=== PATIENT | female | born 1970 | race Hispanic/Latino ===

== ENCOUNTER 2020-05-12 09:58 | Emergency (ER) | payer SELFPAY ==
[2020-05-12] VITALS (17 sets, daily range): BP systolic 84–147; BP diastolic 39–106; PULSE 69–101; RESP 16–29; TEMP 36.4; O2SAT 98–100
--- NOTE | ~2020-05-12 | XR_ITS ---
EXAMINATION: XR chest 2V DATE: 05/12/2020 10:39 INDICATION: Chest pain and hypertension TECHNIQUE: PA and lateral views of the chest were obtained. COMPARISON: None FINDINGS: The lungs are clear with no focal airspace opacities, pulmonary edema, pleural effusion or pneumothor ax. The cardiomediastinal silhouette is normal. Cholecystectomy clips in right upper quadrant. Mild t horacic dextrocurvature with mild spondylosis. Mild anterior wedging of a midthoracic vertebral body, likely T8. Tiny metallic density projecting over the right greater tuberosity which could be related to prior rotator cuff repair. Correlate with surgical history. IMPRESSION: 1. No acute cardiopulmonary disease. Reviewed, dictated and finalized at location B. [facility] DIRECTOR
--- NOTE | 2020-05-12 10:17 | ECG_ITS ---
Measurements Intervals [place] Rate: 78 P: 38 SD: 140 QRS: 40 QRSD: 93 T: 35 QT: 390 QTc: 446 Interpretive Statements SINUS RHYTHM BASELINE ARTIFACT- I, III, AVL NORMAL ECG Electronically Signed On 05-12-2020 10:26:57 DIRECTOR OF REGULATORY AFFAIRS by Jorge Collins D.O.
[2020-05-12 10:29] LABS: Basophils Absolute Auto 0.1 K/mm3 (0.0-0.1); Basophils Percent Auto 0.3 % (0.2-1.2); Eosinophils Absolute Auto 0.4 K/mm3 (0-0.3); Eosinophils Percent Auto 2.6 % (0-4.4); Immature Granulocyte Absolute 0.09 K/mm3 (0.00-0.031); Immature Granulocyte Percent A 0.6 % (0-0.5); Immature Platelet Fraction Pct 5.9 % (0.9-11.2); Lymphocytes Absolute Auto 4.39 K/mm3 (0.9-3.2); Lymphocytes Percent Auto 28.9 % (18.3-44.2); Mean Corpuscular HGB Conc 29.4 g/dl (32-36); Mean Corpuscular Hemoglobin 18.7 pg (26-34); Mean Corpuscular Volume 63.6 fl (80-100); Mean Platelet Volume 10.8 fl (7.4-10.4); Monocytes Absolute Auto 1.2 K/mm3 (0.1-0.6); Monocytes Percent Auto 8.2 % (2.6-8.5); Neutrophils Percent Auto 59.4 % (45.5-73.1); Platelet Count Result 498 k/mm3 (150-375); Red Blood Count 5.35 M/mm3 (4.2-5.4); White Blood Count 15.2 K/mm3 (4.5-10.0)
[2020-05-12 10:33] LABS: Add Urine Microscopic? YES; Appearance Urine Cloudy (Clear); Bacteria Urine Trace /hpf; Bilirubin Urine Negative (Negative); Blood Urine 2+ (Negative); Color Urine Yellow (Yellow); Glucose Urine UA 1+ mg/dL (Negative); Ketones Urine Negative (Negative); Leukocyte Esterase Ur Negative LEU/UL (Negative); Mucus Urine Moderate /lpf; Nitrate Urine Negative (Negative); Protein Urine 2+ mg/dL (Negative); RBC Urine 0-2 /hpf (0-2); Specific Grav Ur 1.027 (1.001-1.035); Squamous Epithelial Cell Urine Many /hpf (Few); Urobilinogen Urine Negative mg/dL (<2.0); WBC Urine 0-3 /hpf
[2020-05-12 10:39] LABS: Hypochromasia 3+ (NORMAL); INR 0.9; Platelet Estimate Increased (Adequate); Prothrombin Time 13.1 Seconds (11.1-14.7)
[2020-05-12 10:40] LABS: Partial Thromboplastin Time 29.9 SECONDS (22.3-36.8)
[2020-05-12 10:43] LABS: Anion Gap 7 mmol/L (8-16); Blood Urea Nitrogen 10 mg/dL (7-17); Carbon Dioxide 25 mmol/L (22-30); Chloride 100 mmol/L (98-107); Estimated Glomerular Filt Rate > 60; Glucose 234 mg/dL (65-105); Potassium 4.2 mmol/L (3.4-5.0); Sodium 132 mmol/L (137-145)
[2020-05-12 10:53] LABS: Troponin I < 0.012 ng/mL (0.000-0.034)
--- NOTE | 2020-05-12 11:08 | ED.RECABL ---
HPI - Recheck/Abnormal Lab/Rx General Chief Complaint: Recheck/Abnormal Lab/Rx Stated Complaint: sent by pcp for elevated bp and glucose Time Seen by Provider: 05/12/20 10:53 Source: patient Mode of arrival: ambulatory Limitations: no limitations History of Present Illness HPI narrative: This is a 49 year old female that presents to the ER for intermittent chest pain x 2 weeks. Reports the pain is achy in nature. It lasts for only a few seconds. Sometimes it is worse with certain movements. Also reports she has been getting headaches. Headache today is in the frontal region and associated with nausea. Reports she was seen by her primary doctor yesterday and told her blood pressure was elevated. She has not been on her blood pressure medication for the last year because she ran out. Her primary doctor restarted on her blood pressure medication, but she has not taken this yet. She also reports her blood sugars have been running in the 300s. Denies fever, shortness of breath, vision changes, vomiting, lower extremity edema, numbness, or weakness. Related Data Allergies Allergy/AdvReac Type Severity Reaction Status Date / Time morphine AdvReac Nausea and Verified 05/12/20 11:11 Vomiting Review of Systems Review of Systems: Narrative: CONSTITUTIONAL: Denies fever EYES: Denies visual changes CARDIOVASCULAR: Reports chest pain. Denies edema. RESPIRATORY: Denies cough or dyspnea. GASTROINTESTINAL: Reports nausea. Denies vomiting GENITOURINARY: Denies dysuria NEUROLOGIC: Reports headache. Denies numbness, or weakness. All systems reviewed & are unremarkable except as noted in HPI and below [facility] Past Medical History Medical History (Updated 05/12/20 @ 12:46 by Lin Delgadillo PA-C) History of diabetes mellitus History of hypertension Social History Social History Gender identity (if verbalized by the patient): Female Exam Narrative: Exam Narrative: GENERAL: Well-appearing, obese, and in no acute distress. HEAD: Normocephalic, atraumatic. EYES: PERRLA and EOMI. ENT: Nares clear, no rhinorrhea or epistaxis. Mucous membranes moist. Oropharynx without tonsillar hypertrophy exudate or other lesions. Bilateral TMs pearly bethea non-bulging NECK: Supple. No adenopathy or masses. CHEST: Clear to auscultation. No respiratory distress. No wheezes rales or rhonchi HEART: Regular rate and rhythm. No murmur heard. Normal peripheral pulses. ABDOMEN: Soft, nontender, nondistended, normal active bowel sounds. EXTREMITIES: Normal range of motion. No edema. Strength equal in bilateral upper and lower extremities (5/5) SKIN: Warm, dry, no rash. NEURO: No focal deficits. Alert and oriented x3. Cranial nerves II through XII grossly intact PSYCH: Normal mood and affect Course Vital Signs Vital signs: Vital Signs Temperature 97.5 F L 05/12/20 10:12 Pulse Rate 85 05/12/20 10:12 Respiratory Rate 16 05/12/20 10:12 Blood Pressure 147/106 H 05/12/20 10:12 Pulse Oximetry 100 05/12/20 10:12 Temperature 97.5 F L 05/12/20 10:12 Pulse Rate 85 05/12/20 10:12 Respiratory Rate 16 05/12/20 10:12 Blood Pressure 147/106 H 05/12/20 10:12 Pulse Oximetry 100 05/12/20 10:12 MDM - Recheck/Abnormal Lab/Rx MDM Narrative Medical decision making narrative: Patient presents the emergency department for elevated blood pressure and blood sugar. She is afebrile and nontoxic-appearing. She is neurologically intact. Was reporting intermittent headaches over the last couple weeks as well as intermittent chest pain. Reports she has been off of her blood pressure medication for some time and was noted to have high blood pressure at her primary visit yesterday. Was restarted on her antihypertensive but has not taken this yet. Blood pressure mildly elevated on arrival, this down trended without intervention. She was given migraine cocktail with relief of headache. Denies any chest pain currently while in the ED. CBC does s
[2020-05-12 11:28] LABS: Hemoglobin A1C 10.8 % (<5.7)
[2020-05-12] MEDS: KETOROLAC 30 MG/ML VIAL (*BKC) IV PUSH (11:30)
[2020-05-12] MEDS: SODIUM CHLORIDE 0.9% IV 1,000 ML 999 ML IV CONT (11:30)
[2020-05-12] MEDS: METOCLOPRAMIDE HCL INJ 10 MG/2 ML VIAL IV PUSH (11:30)
[2020-05-12] MEDS: diphenhydrAMINE HCl INJ 50 MG/ML VIAL 25 MG IV PUSH (11:30)
== END 2020-05-12 13:30 | disposition home or self-care (01) ==
PROVIDERS: Physician Assistant; Emergency Provider Emergency Medicine; PCP Physician Assistant
DX: E11.65 Type 2 diabetes mellitus with hyperglycemia (principal); I10 Essential (primary) hypertension; E07.9 Disorder of thyroid, unspecified; R51.9 Headache, unspecified
CPT/HCPCS: 36415; 71046; 80048; 81001; 81025; 83036; 84484; 85025; 85055; 85610; 85730; 93005; 96365; 96375; 99284; J0131; J1200; J1885; J2765; J7030

== ENCOUNTER 2024-10-04 17:58 | Inpatient (IN) | payer SELFPAY ==
[2024-10-04] VITALS (11 sets, daily range): BP systolic 133–183; BP diastolic 48–86; PULSE 115–124; RESP 20–44; TEMP 36.7–39.2; O2SAT 91–99; BMI 39.3
--- NOTE | ~2024-10-04 | XR_ITS ---
Portable chest x-ray Comparison: 10/05/2024 Clinical History: Shortness of breath Findings: There is central congestive change and probable minimal bibasilar pulmonary edema. Right-s ided PICC line in place. Cardiomediastinal silhouette is stable. Bones and soft tissues are unremark able. Impression: Minimal congestive change and probable minimal bibasilar pulmonary edema. Right-sided PICC line in place. Reviewed, dictated and finalized at location M. Impression: Minimal congestive change and probable minimal bibasilar pulmonary edema. Right-sided PICC line in place.
--- NOTE | ~2024-10-04 | CT_ITS ---
CT abdomen pelvis w con Ordering provider: Jenny Novoa MD History: 54 years Female with . R flank/lat pain radiating across R low back . Comparison: None. Technique: CT abdomen and pelvis with IV and without oral contrast. Automated exposure control and it erative reconstruction technique were employed. The dose-length product was 1020.94 mGy-cm. Findings: VISUALIZED LOWER CHEST: Dependent atelectatic changes. UPPER ABDOMINAL ORGANS: Liver: Hepatomegaly. Gallbladder: Status post cholecystectomy. Spleen: Normal. Stomach/duodenum: Normal. Pancreas: Normal. Adrenals: 1 cm left adrenal adenoma is seen. No follow-up advised unless clinically warranted. This Kidneys: Hypodensity with central necrotic areas is seen in the right kidney upper pole which is sugg estive of a mass. Focal nephritis is less likely. This area measures 2.8 x 2.9 cm. Further evaluation and follow-up is advised. PELVIC ORGANS: The bladder shows slightly thickened wall. Evaluation for cystitis advised. Bulge is seen in the anterior wall of the uterus which may indicate large fibroid. Another smaller e xophytic soft tissue density is also seen anteriorly suggestive of small fibroids. Further evaluation advised. BOWEL AND MESENTERY: Colon: No evidence of diverticulitis.. No evidence of appendicitis. Small Bowel: Normal. No obstruction. Peritoneum/mesentery: No free air or free fluid. No mesenteric lymphadenopathy. RETROPERITONEUM: Normal aorta. No retroperitoneal lymphadenopathy. MUSCULOSKELETAL: Superficial soft tissues: The superficial soft tissues are normal. Bones: Normal spine. IMPRESSION: 1. No evidence of appendicitis, diverticulitis or intestinal obstruction. No kidney stones. 2. Hypodensity in the right kidney upper pole which may indicate a mass and less likely focal nephri tis. Further evaluation and follow-up advised. 3. Tiny left adrenal nodule. No follow-up is clinically warranted. 4. Fibroid uterus. Ultrasound evaluation advised. 5. Hepatomegaly. Reviewed, dictated and finalized at location A. IMPRESSION: 1. No evidence of appendicitis, diverticulitis or intestinal obstruction. No k idney stones. 2. Hypodensity in the right kidney upper pole which may indicate a mass and le ss likely focal nephritis. Further evaluation and follow-up advised. 3. Tiny left adrenal nodule. No follow-up is clinically warranted. 4. Fibroid uterus. Ultrasound evaluation advised. 5. Hepatomegaly.
--- NOTE | ~2024-10-04 | US_ITS ---
EXAMINATION: US renal BI DATE: 10/06/2024 10:35 INDICATION: Focal pyelonephritis and bacteremia TECHNIQUE: Multiple ultrasound grayscale images of the kidneys were obtained. COMPARISON: CT dated 10/04/2024 FINDINGS: The right kidney measures 12.9 x 6.4 x 7.0 cm. The left kidney measures 12.8 x 6.6 x 6.6 cm. There is a small ill-defined region of increased echogenicity at the upper pole of the right kidney which cor responds to a region of hypoenhancement on prior CT suspicious for pyelonephritis. The kidneys demons trate otherwise normal echogenicity. Mild left hydronephrosis. No hydronephrosis in the right kidney. No stones identified. The bladder is normal with bilateral ureteral jets visualized on color Doppler . 1.1 cm nodule, likely a small splenule along the caudal margin of the spleen. IMPRESSION: 1. Small ill-defined hyperechoic region at the upper pole the right kidney corresponding to the ninoska on of decreased enhancement on prior CT suspicious for pyelonephritis. Consider follow-up ultrasound or pre and postcontrast MRI or CT in a few months to exclude less likely neoplasm and document resolu tion. 2. Mild left hydronephrosis. Reviewed, dictated and finalized at location A. IMPRESSION: 1. Small ill-defined hyperechoic region at the upper pole the right kidney cor responding to the region of decreased enhancement on prior CT suspicious for py elonephritis. Consider follow-up ultrasound or pre and postcontrast MRI or CT i n a few months to exclude less likely neoplasm and document resolution. 2. Mild left hydronephrosis.
--- NOTE | ~2024-10-04 | CT_ITS ---
CT soft tissue neck chest wo Ordering provider: Tacho Andrade MD History: 54 years Female with . Sore throat, Bacteremia . Comparison: None. Technique: CT soft tissues neck chest was performed without contrast. . Automated exposure control a nd iterative reconstruction technique were employed. The dose-length product was 1068.14 mGy-cm. Findings: LOWER HEAD: The visualized brain parenchyma, optic globes/orbits and mastoids are normal. The visua lized paranasal sinuses are well aerated. SALIVARY GLANDS: Normal. slightly enlarged parotid glands. Clinical evaluation advised. THYROID: Calcific foci are seen in the left thyroid. SUPRAHYOID DEEP SPACES: Left parapharyngeal lymph node measuring 8 mm. CAROTID ARTERIES: Normal. JUGULAR VEINS: Normal. TONSILS: Normal. ORAL CAVITY: Partially obscured by dental amalgam but normal as visualized. PHARYNX, LARYNX AND TRACHEA: Patent and normal. No prevertebral soft tissue swelling. SUPERFICIAL SOFT TISSUES: Normal. No lymphadenopathy or neck mass. CHEST: Right central line with the tip in the superior vena cava. Opacification in the right lower lo be area suggestive of atelectasis versus pneumonia with minimal effusion. Opacification in the left l ower lobe is also noted with minimal effusion. Cardiomegaly. Visualized upper abdomen: Hyperdense areas seen in the right kidney which may indicate a mass.these areas measure 1.9 x 2.4 cm and 1.9 x 2.4 cm. Further evaluation advised. Left adrenal adenoma measuring 1.3 cm. No follow-up advised unless clinically warranted. SKELETAL: Age appropriate degenerative changes. IMPRESSION: 1. Enlarged particularly glands. Clinical evaluation advised. 2. Calcific foci in the left thyroid. Further evaluation advised. 3. Bilateral basal atelectasis versus pneumonia with effusion. 4. Hyperdense lesions in the right kidney which may be masses. Further evaluation advised. Reviewed, dictated and finalized at location A. IMPRESSION: 1. Enlarged particularly glands. Clinical evaluation advised. 2. Calcific foci in the left thyroid. Further evaluation advised. 3. Bilateral basal atelectasis versus pneumonia with effusion. 4. Hyperdense lesions in the right kidney which may be masses. Further evaluat ion advised.
--- NOTE | ~2024-10-04 | XR_ITS ---
XR chest 1V portable Ordering provider: Lyle Ramirez MD History: 54 years Female with . cough . Comparison: May 12, 2020 FINDINGS: MEDIASTINUM: The cardiac silhouette is not enlarged. Congestive delores. LUNGS: No effusions or pneumothorax. Opacification in both lung bases more on the left side. OTHER: No free air under the diaphragm. IMPRESSION: Bibasilar atelectasis versus pneumonia. Follow-up to resolution advised. Reviewed, dictated and finalized at location A.
--- NOTE | ~2024-10-04 | XR_ITS ---
Portable chest x-ray Comparison: 10/04/2024 Clinical History: PICC line placement Findings: Right-sided PICC line in satisfactory position. Lungs are clear, without focal consolidati on or pleural effusion. No pneumothorax. Cardiomediastinal silhouette is stable. Bones and soft tiss ues are unremarkable. Impression: Right-sided PICC line in satisfactory position. Clear lungs. Reviewed, dictated and finalized at location . Impression: Right-sided PICC line in satisfactory position. Clear lungs.
--- NOTE | 2024-10-04 17:50 | ED.GENADULT ---
HPI - General Adult General Chief complaint: Back Pain/Injury Stated complaint: right flank pain, BS 412 Source: patient, family and RN notes reviewed Mode of arrival: EMS Limitations: no limitations History of Present Illness HPI narrative: Patient presents with was initially described as right flank pain although she points to her right lateral abdomen. She does note that it radiates medially across her back towards/approaching the midline. This started at 3:00 a.m.. Blood sugar per EMS was 412 mg/dL. She is an insulin-dependent diabetic who is on both long-acting and short-acting. Her last dose of long-acting was yesterday morning she did not take today's morning dose. Her last use of short-acting lispro which is typically 14 units was at breakfast this morning. She has been in DKA before and notes that she feels similar. She has been nauseated and was administered 4 mg Zofran by EMS EN route. She continues to feel nauseated. She has been vomiting but denies any bloody emesis. She denies any abdominal pain. Her last bowel movement was 1 hour ago and she denies any diarrhea constipation or blood in stool. She denies any trauma. No vaginal bleeding or discharge. Last oral intake was last night. She has been having chills. She does not know if she has a history of kidney stones. She has a history of urinary tract infection with the last 1 occurring 2 months ago. She lists an allergy to morphine but states that she has successfully received other opiate therapy such as hydrocodone without issue. No vaginal bleeding or discharge. Last oral intake was last night. No trauma. Related Data Allergies Allergy/AdvReac Type Severity Reaction Status Date / Time morphine AdvReac Nausea and Verified 10/04/24 17:19 Vomiting PMFSH Past Medical History Medical History (Updated 10/04/24 @ 19:23 by Jenny Novoa MD) History of UTI Insulin dependent diabetes mellitus DKA (diabetic ketoacidosis) History of hypertension Social History Social History (System 01/04/22 @ 13:30 by Hunter Elmore) Gender identity (if verbalized by the patient): Female Exam Narrative: GENERAL: Well-appearing, well-nourished, in mild acute distress. HEAD: Normocephalic, atraumatic. EYES: Non injected, non icteric ENT: Nares clear, no rhinorrhea or epistaxis. Gross auditory acuity intact. NECK: Supple. No meningismus. CHEST: Tachycardic but Speaking in full sentences. HEART: Tachycardic rate and rhythm. ABDOMEN: Soft, nondistended. No rigidity or guarding. Not peritoneal. BACK/: No CVA tenderness bilaterally. EXTREMITIES: Normal range of motion. SKIN: Warm, dry, no rash. In particular, no lesions or ecchymosis overlying back/right lateral abdomen. NEURO: No focal deficits. Alert and oriented. Answering questions. Following commands. Normal speech without aphasia or dysarthria. PSYCH: Normal mood and affect. Course Vital Signs Vital signs: Vital Signs Temperature 36.7 C 10/04/24 17:16 Pulse Rate 119 H 10/04/24 17:16 Respiratory Rate 20 10/04/24 17:16 Blood Pressure 143/48 H 10/04/24 17:16 Pulse Oximetry 99 10/04/24 17:16 Oxygen Delivery Room Air 10/04/24 17:16 Temperature 39.1 C H 10/04/24 18:07 Pulse Rate 119 H 10/04/24 20:29 Respiratory Rate 38 H 10/04/24 20:29 Blood Pressure 183/78 H 10/04/24 20:29 Pulse Oximetry 95 10/04/24 20:29 Oxygen Delivery Room Air 10/04/24 17:16 Medical Decision Making [facility] Narrative Medical decision making narrative: Patient presents with right flank/back/lateral abdomen pain as well as elevated blood sugar and nausea/vomiting. She has a history of insulin-dependent diabetes mellitus with previous episode of DKA. In the emergency department she is afebrile with vital signs notable for tachycardia. Mild elevated systolic blood pressure and decreased diastolic but mean arterial pressure 79mmHg. Due to the initially low diastolic blood pressure, tachycardia, and tachypnea, as well as her feeling warm on exam (initially normal temp but requested repeat). This is elevated at 102.3. Sepsis protocol is initiated with 30 cc/kg IV fluids, blood culture, lactic acid, and broad-spectrum antibiotics. Very mild elevated lactic acid. Point of care glucose 313 mg/dl. She has a marked leukocytosis. She has a microcytic anemia. Hemoglobin is 7.8; last known previous in EMR was 10 but that was back in 2020. Repeat H/H 4 hours from initial is ordered. She also has a thrombocytosis, initilaly considered acute phase reactant but chronic per review of EMR. Beta hydroxybutyrate is elevated. She has hyperglycemia with an anion gap and mild acidosis as well as 3+ ketones in her urine. Thus, DKA is diagnosed and orders for protocol. Pseudo hyponatremia as it corrects to 140/142 in the setting of hyperglycemia. Potassium normal. CRP elevated. Patient reassessed at 7:30 p.m. she notes that she is feeling better. She is updated on her status of DKA requiring admission to the ICU but that official admission orders would be pending CT scan to rule out any surgical process. She verifies understanding and is in agreement. Patient signed out to oncoming ED physician pending this as well as a page out to the stock fitter/Dr Andrade. Differential Diagnosis Differential Diagnosis: DKA, hyperglycemia, HHS; kidney stone including infected kidney stone, pyelonephritis, UTI, musculoskeletal back pain; intra-abdominal abscess; sepsis Vital Signs Vital Signs: Vital Signs Temperature 36.7 C 10/04/24 17:16 Pulse Rate 119 H 10/04/24 17:16 Respiratory Rate 20 10/04/24 17:16 Blood Pressure 143/48 H 10/04/24 17:16 Pulse Oximetry 99 10/04/24 17:16 Oxygen Delivery Room Air 10/04/24 17:16 Temperature 39.1 C H 10/04/24 18:07 Pulse Rate 119 H 10/04/24 20:29 Respiratory Rate 38 H 10/04/24 20:29 Blood Pressure 183/78 H 10/04/24 20:29 Pulse Oximetry 95 10/04/24 20:29 Oxygen Delivery Room Air 10/04/24 17:16 Lab Data Lab results reviewed: Yes I reviewed the patient's lab results. 10/04/24 18:01 10/04/24 18:01 Labs: Lab Results 10/04/24 10/04/24 10/04/24 Range/Units 17:19 18:01 18:01 WBC 22.5 H (4.5-10.0) K/mm3 RBC 4.95 (4.2-5.4) M/mm3 Hgb 7.8 L (12.0-15.0) g/dL Hct 29.7 L (37.0-47.0) % MCV 60.0 L (80-100) fl MCH 15.8 L (26-34) pg MCHC 26.3 L (32-36) g/dl RDW 21.7 H (11.5-14.5) % Plt Count 454 H (150-375) k/mm3 MPV TNP Immature Gran % (Auto) Not Reportable Neut % (Auto) Not Reportable Lymph % (Auto) Not Reportable Dixon % (Auto) Not Reportable Eos % (Auto) Not Reportable Baso % (Auto) Not Reportable Lymph # (Auto) Not Reportable Dixon # (Auto) Not Reportable Eos # (Auto) Not Reportable Baso # (Auto) Not Reportable Abs Immat Gran (auto) Not Reportable Absolute Neuts (auto) Not Reportable Absolute Nucleated RBC Not Reportable Total Counted 100 Neutrophils % (Manual) 86 H (46-73) % Band Neutrophils % 4 (0-6) % Lymphocytes % (Manual) 6.0 L (18-44) % Monocytes % (Manual) 4 (3-9) % Nucleated RBC % Not Reportable Abs Neuts (Manual) 20.25 H (1.3-6.7) K/mm3 Abs Lymphs (Manual) 1.35 (1.1-4.5) K/mm3 Abs Monocytes (Manual) 0.90 (0.1-0.90) K/mm3 Platelet Estimate Increased (Adequate) % Immature Plt Fraction 5.5 (0.9-11.2) % Polychromasia 1+ Hypochromasia 1+ Anisocytosis 3+ Microcytosis 1+ (NORMAL) Schistocytes None seen Sodium 136 L (137-145) mmol/L Potassium 3.5 (3.4-5.0) mmol/L Chloride 104 (98-107) mmol/L Carbon Dioxide 16 L (22-30) mmol/L Anion Gap 16 H (4-12) mmol/L BUN 5 L D (7-17) mg/dL Creatinine 0.37 L (0.7-1.0) mg/dL Estim Creat Clear Calc Not Reportable Estimated GFR > 60 (59 - ) Glucose 351 H (65-110) mg/dL POC Capillary Glucose 354 H (65-105) mg/dl Hemoglobin A1c (<5.7) % Lactic Acid 2.1 H (0.7-2.0) mmol/L Calcium 9.3 (8.4-10.2) mg/dL Phosphorus 2.7 (2.5-4.5) mg/dL Magnesium 1.6 (1.6-2.3) mg/dL Total Bilirubin 0.8 (0.2-1.3) mg/dL AST 30 (14-36) U/L ALT 28 (6-35) U/L Alkaline Phosphatase 101 (38-126) U/L C-Reactive Protein 4.5 H Cancelled (<1.0) mg/dL Total Protein 8.2 (6.3-8.2) g/dL Albumin 4.3 (3.5-5.1) g/dL Lipase 113 (23-300) U/L Beta-Hydroxybutyrate/Acetoacetate (0.02-0.27) mmol/L Urine Color (Yellow) Urine Appearance (Clear) Urine pH (5.0-9.0) Ur Specific [place] (1.001-1.035) Urine Protein (Negative) mg/dL Urine Glucose (UA) (Negative) mg/dL Urine Ketones (Negative) mg/dL Ur Blood (Man) (Negative) Urine Nitrate (Negative) Urine Bilirubin (Negative) Urine Urobilinogen (<2.0) mg/dL Leukocyte Esterase Rfl (Negative) LEATHA/UL Urine RBC (0-2) /hpf Urine WBC (0-3) /hpf Ur Squamous Epith Cells (Few) /hpf Urine Bacteria /hpf Urine Casts POC Urine HCG, Qual (Negative) Blood Type Antibody Screen 10/04/24 10/04/24 10/04/24 Range/Units 18:01 18:07 18:09 WBC (4.5-10.0) K/mm3 RBC (4.2-5.4) M/mm3 Hgb (12.0-15.0) g/dL Hct (37.0-47.0) % MCV (80-100) fl MCH (26-34) pg MCHC (32-36) g/dl RDW (11.5-14.5) % Plt Count (150-375) k/mm3 MPV Immature Gran % (Auto) Neut % (Auto) Lymph % (Auto) Dixon % (Auto) Eos % (Auto) Baso % (Auto) Lymph # (Auto) Dixon # (Auto) Eos # (Auto) Baso # (Auto) Abs Immat Gran (auto) Absolute Neuts (auto) Absolute Nucleated RBC Total Counted Neutrophils % (Manual) (46-73) % Band Neutrophils % (0-6) % Lymphocytes % (Manual) (18-44) % Monocytes % (Manual) (3-9) % Nucleated RBC % Abs Neuts (Manual) (1.3-6.7) K/mm3 Abs Lymphs (Manual) (1.1-4.5) K/mm3 Abs Monocytes (Manual) (0.1-0.90) K/mm3 Platelet Estimate (Adequate) % Immature Plt Fraction (0.9-11.2) % Polychromasia Hypochromasia Anisocytosis Microcytosis (NORMAL) Schistocytes Sodium (137-145) mmol/L Potassium (3.4-5.0) mmol/L Chloride (98-107) mmol/L Carbon Dioxide (22-30) mmol/L Anion Gap (4-12) mmol/L BUN (7-17) mg/dL Creatinine (0.7-1.0) mg/dL Estim Creat Clear Calc Estimated GFR (59 - ) Glucose (65-110) mg/dL POC Capillary Glucose (65-105) mg/dl Hemoglobin A1c (<5.7) % Lactic Acid (0.7-2.0) mmol/L Calcium (8.4-10.2) mg/dL Phosphorus (2.5-4.5) mg/dL Magnesium (1.6-2.3) mg/dL Total Bilirubin (0.2-1.3) mg/dL AST (14-36) U/L ALT (6-35) U/L Alkaline Phosphatase (38-126) U/L C-Reactive Protein (<1.0) mg/dL Total Protein (6.3-8.2) g/dL Albumin (3.5-5.1) g/dL Lipase Cancelled (23-300) U/L Beta-Hydroxybutyrate/Acetoacetate 1.32 H (0.02-0.27) mmol/L Urine Color Yellow (Yellow) Urine Appearance Cloudy H (Clear) Urine pH 5.5 (5.0-9.0) Ur Specific [place] 1.037 H (1.001-1.035) Urine Protein 1+ H (Negative) mg/dL Urine Glucose (UA) 3+ H (Negative) mg/dL Urine Ketones 3+ H (Negative) mg/dL Ur Blood (Man) Negative (Negative) Urine Nitrate Positive H (Negative) Urine Bilirubin Negative (Negative) Urine Urobilinogen 0.2 (<2.0) mg/dL Leukocyte Esterase Rfl Negative (Negative) LEATHA/UL Urine RBC 0-2 (0-2) /hpf Urine WBC 6-10 H (0-3) /hpf Ur Squamous Epith Cells None seen (Few) /hpf Urine Bacteria 1+ H /hpf Urine Casts 0-2 POC Urine HCG, Qual Negative (Negative) Blood Type Antibody Screen 10/04/24 10/04/24 10/04/24 Range/Units 18:24 19:19 20:31 WBC (4.5-10.0) K/mm3 RBC (4.2-5.4) M/mm3 Hgb (12.0-15.0) g/dL Hct (37.0-47.0) % MCV (80-100) fl MCH (26-34) pg MCHC (32-36) g/dl RDW (11.5-14.5) % Plt Count (150-375) k/mm3 MPV Immature Gran % (Auto) Neut % (Auto) Lymph % (Auto) Dixon % (Auto) Eos % (Auto) Baso % (Auto) Lymph # (Auto) Dixon # (Auto) Eos # (Auto) Baso # (Auto) Abs Immat Gran (auto) Absolute Neuts (auto) Absolute Nucleated RBC Total Counted Neutrophils % (Manual) (46-73) % Band Neutrophils % (0-6) % Lymphocytes % (Manual) (18-44) % Monocytes % (Manual) (3-9) % Nucleated RBC % Abs Neuts (Manual) (1.3-6.7) K/mm3 Abs Lymphs (Manual) (1.1-4.5) K/mm3 Abs Monocytes (Manual) (0.1-0.90) K/mm3 Platelet Estimate (Adequate) % Immature Plt Fraction (0.9-11.2) % Polychromasia Hypochromasia Anisocytosis Microcytosis (NORMAL) Schistocytes Sodium (137-145) mmol/L Potassium (3.4-5.0) mmol/L Chloride (98-107) mmol/L Carbon Dioxide (22-30) mmol/L Anion Gap (4-12) mmol/L BUN (7-17) mg/dL Creatinine (0.7-1.0) mg/dL Estim Creat Clear Calc Estimated GFR (59 - ) Glucose (65-110) mg/dL POC Capillary Glucose 313 H 297 H (65-105) mg/dl Hemoglobin A1c 11.7 H (<5.7) % Lactic Acid (0.7-2.0) mmol/L Calcium (8.4-10.2) mg/dL Phosphorus (2.5-4.5) mg/dL Magnesium (1.6-2.3) mg/dL Total Bilirubin (0.2-1.3) mg/dL AST (14-36) U/L ALT (6-35) U/L Alkaline Phosphatase (38-126) U/L C-Reactive Protein (<1.0) mg/dL Total Protein (6.3-8.2) g/dL Albumin (3.5-5.1) g/dL Lipase (23-300) U/L Beta-Hydroxybutyrate/Acetoacetate (0.02-0.27) mmol/L Urine Color (Yellow) Urine Appearance (Clear) Urine pH (5.0-9.0) Ur Specific Bartlett (1.001-1.035) Urine Protein (Negative) mg/dL Urine Glucose (UA) (Negative) mg/dL Urine Ketones (Negative) mg/dL Ur Blood (Man) (Negative) Urine Nitrate (Negative) Urine Bilirubin (Negative) Urine Urobilinogen (<2.0) mg/dL Leukocyte Esterase Rfl (Negative) LEATHA/UL Urine RBC (0-2) /hpf Urine WBC (0-3) /hpf Ur Squamous Epith Cells (Few) /hpf Urine Bacteria /hpf Urine Casts POC Urine HCG, Qual (Negative) Blood Type O Positive Antibody Screen Negative ABG Data ABG results: 10/04/24 19:17 VBG pH 7.438 H* VBG pCO2 25.6 L* VBG pO2 48.6 H VBG HCO3 16.9 L O2 Delivery Device Not Reportable O2 Liters/Min Not Reportable FiO2 21 ECG Data EKG #1: Attestation: I personally reviewed and interpreted this ECG as follows: ECG completion date: 10/04/24 ECG completion time: 19:03 Interpretation: Sinus tachycardia at a rate of 116 beats per minute. TX interval 136. QRS 86. QT/QTC 332/401. Good R-wave progression across the precordial leads. T-wave inversion in 3. Upright in contiguous inferior lead 2. No T-wave inversions in precordial leads. Discharge Plan Discharge Clinical Impression: Sepsis, Leukocytosis, Microcytic anemia, Thrombocytosis, DKA (diabetic ketoacidosis), Pseudohyponatremia, CRP elevated Patient Disposition: Still a Patient Condition: Serious Patient Language: Latvian Follow-up/Referrals: Pratibha,ELO Cherry [Primary Care Provider] - Time of Disposition: 20:57
--- NOTE | 2024-10-04 17:55 | PC.NURSE ---
Dr. Novoa at bedside assessing pt.
[2024-10-04 18:08] LABS: BEDSIDEPREGUCG Negative (Negative)
[2024-10-04 18:12] LABS: Hematocrit 29.7 % (37.0-47.0); Hemoglobin 7.8 g/dL (12.0-15.0); Immature Platelet Fraction Pct 5.5 % (0.9-11.2); Mean Corpuscular HGB Conc 26.3 g/dl (32-36); Mean Corpuscular Hemoglobin 15.8 pg (26-34); Platelet Count Result 454 k/mm3 (150-375); Red Blood Count 4.95 M/mm3 (4.2-5.4); Red Cell Distribution Width 21.7 % (11.5-14.5); White Blood Count 22.5 K/mm3 (4.5-10.0)
[2024-10-04] MEDS: HYDROmorphone HCL INJ (*CRX) 2 MG/ML VIAL 0.5 MG IV PUSH (18:19)
[2024-10-04] MEDS: ONDANSETRON INJ 4 MG/2 ML VIAL IV PUSH (18:19)
[2024-10-04] MEDS: SODIUM CHLORIDE 0.9% IV 1,000 ML 999 ML IV CONT ×2 (18:19→18:37)
[2024-10-04 18:23] LABS: Add Urine Microscopic? YES; Appearance Urine Cloudy (Clear); Bacteria Urine 1+ /hpf; Bilirubin Urine Negative (Negative); Blood Urine Negative (Negative); Color Urine Yellow (Yellow); Glucose Urine UA 3+ mg/dL (Negative); Ketones Urine 3+ mg/dL (Negative); Leukocyte Esterase Ur Negative LEU/UL (Negative); Nitrate Urine Positive (Negative); Non Pathogenic Casts 0-2; Protein Urine 1+ mg/dL (Negative); RBC Urine 0-2 /hpf (0-2); Specific Grav Ur 1.037 (1.001-1.035); Squamous Epithelial Cell Urine None Seen /hpf (Few); Urobilinogen Urine 0.2 mg/dL (<2.0); pH Urine 5.5 (5.0-9.0)
[2024-10-04 18:27] LABS: Glucose Point of Care 313 mg/dl (65-105)
[2024-10-04 18:33] LABS: Lactic Acid Reflex 2.1 mmol/L (0.7-2.0)
[2024-10-04] MEDS: ACETAMINOPHEN 500 MG TABLET 1000 MG PO (18:35)
[2024-10-04 18:36] LABS: Band Neutrophils Percent 4 % (0-6); Lymphocytes Absolute Manual 1.35 K/mm3 (1.1-4.5); Monocytes Percent Manual 4 % (3-9); Neutrophils Absolute Manual 20.25 K/mm3 (1.3-6.7); Neutrophils Percent Manual 86 % (46-73); Platelet Estimate Increased (Adequate); Total Cells Counted 100
[2024-10-04 18:37] LABS: Alanine Aminotransferase 28 U/L (6-35); Albumin Level 4.3 g/dL (3.5-5.1); Alkaline Phosphatase 101 U/L (38-126); Anion Gap 16 mmol/L (4-12); Anisocytosis 3+; Aspartate Amino Transferase 30 U/L (14-36); Bilirubin,Total 0.8 mg/dL (0.2-1.3); Blood Urea Nitrogen 5 mg/dL (7-17); CRP 4.5 mg/dL (<1.0); Calcium 9.3 mg/dL (8.4-10.2); Carbon Dioxide 16 mmol/L (22-30); Chloride 104 mmol/L (98-107); Estimated Glomerular Filt Rate > 60; Glucose 351 mg/dL (65-110); Hypochromasia 1+; Lipase 113 U/L (23-300); Magnesium 1.6 mg/dL (1.6-2.3); Microcytosis 1+ (NORMAL); Phosphorus 2.7 mg/dL (2.5-4.5); Potassium 3.5 mmol/L (3.4-5.0); Schistocytes None Seen; Sodium 136 mmol/L (137-145); Total Protein 8.2 g/dL (6.3-8.2)
[2024-10-04 18:38] LABS: Polychromasia 1+
[2024-10-04 18:39] LABS: Beta-Hydroxybutyrate/Acetoacetate 1.32 mmol/L (0.02-0.27)
--- NOTE | 2024-10-04 18:39 | ECG_ITS ---
Test Date: 2024-10-04 19:03:43 Measurements Intervals [place] Rate: 116 P: 30 TN: 136 QRS: 31 QRSD: 86 T: 6 QT: 332 QTc: 463 Interpretive Statements SINUS TACHYCARDIA CONSIDER INFERIOR INFARCT, AGE INDETERMINATE ABNORMAL ECG No previous ECG available for comparison Electronically Signed On 10-04-2024 20:20:30 CDT by Jorge Collins D.O.
[2024-10-04] MEDS: SODIUM CHLORIDE 0.9% IV 500 ML 999 ML IV CONT (18:42)
--- NOTE | 2024-10-04 18:55 | PC.NURSE ---
After 2x attempts, this RN was only able to collect 1 set of blood cultures. Azeb RN to bedside to attempt 2nd set of cultures.
[2024-10-04 19:18] LABS: Glucose Point of Care 354 mg/dl (65-105)
[2024-10-04 19:20] LABS: Fractional Inspired Oxygen 21 %; HCO3 VBG 16.9 mEq/l (24.0-30.0); PO2 VBG 48.6 mmHg (35.0-45.0)
[2024-10-04 19:21] LABS: PCO2 VBG 25.6 mmHg (42.0-48.0); pH VBG 7.438 (7.300-7.400)
[2024-10-04 19:37] LABS: Hemoglobin A1C 11.7 % (<5.7)
[2024-10-04 20:08] LABS: Reflex Lactic Acid Yes or No Add Lactic
[2024-10-04] MEDS: CEFEPIME 1 GM/NS 50 ML 1 GM/50 ML BAG IVPB (20:35)
[2024-10-04 20:49] LABS: Glucose Point of Care 297 mg/dl (65-105)
[2024-10-04] MEDS: INSULIN HUMAN REGULAR (*BKC) 100 UNITS in SODIUM CHLORIDE 0.9% IV 99 ML 8 UNITS IV CONT (21:06)
[2024-10-04] MEDS: VANCOMYCIN 2,000 MG/NS 500 ML 2,000 MG/500 ML BAG 250 MG IVPB (21:07)
[2024-10-04] MEDS: SODIUM CHLORIDE 0.9% IV 1,000 ML 150 ML IV CONT (21:10)
--- NOTE | 2024-10-04 21:10 | PC.NURSE ---
Rn spoke with pharmacy and Merly from ICU to discuss medication DKA protocols and which meds to start first er pt current blood sugar and potassium level. Per Merly from ICU she verbally states to start the insulin drip with normal saline drip and adjust drips based on pt future glucose and potassium levels. RN is holding KCL, bicarb, and dextrose drips at this time until next glucose check.
[2024-10-04 22:28] LABS: Glucose Point of Care 295 mg/dl (65-105)
[2024-10-04 22:42] LABS: Procalcitonin 0.3 ng/mL
--- NOTE | 2024-10-04 22:42 | PC.NURSE ---
This patient, Harini Cid, was admitted to Intensive Care Unit-8. Patient/family oriented to hospital policies and general routines including ID bracelet, bed and alarms, visiting hours, pain management, procedures, bathroom and other care routines, personal items, smoking policy, room service/diet, and visiting hours. Information on how to activate the Rapid Response Team has been discussed. Patient/Family are encouraged to report perceived risks to care and to ask questions if they do not understand what they are told or what they should do.
--- NOTE | 2024-10-04 22:51 | PC.NURSE ---
Per Everton Alexander she was unsuccessful getting pt blood draw done at this time. Per angel pt is a hard stick. Phlebotomy called and floor RN notified at this time.
[2024-10-04] MEDS: ACETAMINOPHEN 325 MG TABLET 650 MG PO (23:07)
[2024-10-04 23:12] LABS: Hemoglobin 7.1 g/dL (12.0-15.0)
--- NOTE | 2024-10-04 23:20 | ADMGEN ---
This patient, Harini Cid, was admitted to Intensive Care Unit-8 at 2238. Patient/family oriented to hospital policies and general routines including ID bracelet, bed and alarms, visiting hours, pain management, procedures, bathroom and other care routines, personal items, smoking policy, room service/diet, and visiting hours. Information on how to activate the Rapid Response Team has been discussed. Patient/Family are encouraged to report perceived risks to care and to ask questions if they do not understand what they are told or what they should do.
[2024-10-04 23:21] LABS: Lactic Acid 2.8 mmol/L (0.7-2.0)
[2024-10-04 23:25] LABS: Anion Gap 15 mmol/L (4-12); Blood Urea Nitrogen 5 mg/dL (7-17); Calcium 8.2 mg/dL (8.4-10.2); Carbon Dioxide 14 mmol/L (22-30); Chloride 108 mmol/L (98-107); Estimated Glomerular Filt Rate > 60; Glucose 271 mg/dL (65-110); Potassium 2.7 mmol/L (3.4-5.0); Sodium 137 mmol/L (137-145)
[2024-10-04 23:30] LABS: Glucose Point of Care 254 mg/dl (65-105)
--- NOTE | 2024-10-04 23:48 | PM.IMHP ---
H&P: HPI History of Present Illness Date/Time: 10/04/24 23:48 Chief Complaint: Right side pain since early this morning Narrative: 54-year-old female with a past medical history of obesity, insulin-dependent diabetes mellitus, hypothyroidism, essential hypertension and recent UTI treated as outpatient 2 months ago who presented to the ER via EMS from home due to right side/flank pain starting around 03:00. The patient's daughter is at bedside and helps provide history with patient's permission. The patient had UTI 2 months ago and was treated with 7 days of oral antibiotics. She reports her symptoms for her last UTI involved dysuria but she has not been having dysuria this time. Instead she did not realize that the urinary urgency and frequency that she was having could also be symptoms of UTI. She has been having the symptoms for about 3 weeks. She denies any urinary incontinence. She has been having increased thirst for the last 10 days or so. She has been having headache for several days and has sore throat for 3 days. Yesterday she began having rigors, chills and subjective fevers. Her daughter at provider with 500 mg of Tylenol early this morning. She denies any hematuria. She has been or having normal bowel movements and denies hematochezia or melena. She denies sensation of incomplete bladder emptying. Has been having nausea and vomiting since early this morning. She denies any bilious emesis. She received Zofran in route to the hospital. She was afebrile on arrival to the ER but shortly thereafter developed a fever with a T-max of 102.5?. She denies any cough or congestion. She reports some tightness in her upper abdomen that goes around to her back in AC wheezing in nature. She does have chronic menorrhagia due to PCOS. She has chronic anemia and takes iron supplements at home despite taking iron supplements her hemoglobin in the ER was noted to be 7.8. Her prior values back in 2020 was 10. The she denies any symptoms of lightheadedness, near-syncope or palpitations when she is not sick. Her daughter was at bedside reports that the patient snores quite loudly and does have multiple episodes of apnea at night. The patient has never had a sleep study. Patient does report daytime fatigue and sleepiness at baseline. Her glucoses in the ER were 351. She takes her Lantus and oral hypoglycemic agents as directed but only checks her glucoses every 3 days or so. She reports that when she checks her sugars they are always high. She never has normal glucoses. She does have symptoms of peripheral neuropathy. She denies any known diagnosis of diabetic retinopathy. The patient's mother was blind due to complications of diabetes prior to her . Review of Systems Review of Systems: 12 systems were reviewed with pertinent positives and negatives per HPI. Except as documented in the HPI, all other systems were reviewed and are negative. [facility] Past Medical History Medical History (Updated 10/05/24 @ 06:01 by Merly Duckworth DO) PCOS (polycystic ovarian syndrome) Obesity, Class II, BMI 35-39.9 Iron deficiency anemia History of UTI Insulin dependent diabetes mellitus DKA (diabetic ketoacidosis) History of hypertension Surgical History Surgical History (Updated 10/05/24 @ 05:59 by Merly Duckworth DO) S/P right rotator cuff repair (~2012) History of 3 sections History of laparoscopic cholecystectomy (~2004) Family History Family History Father Acute myocardial infarction Cerebrovascular accident Diabetes mellitus Hypertension Sibling Diabetes mellitus Father No problems noted. Mother Hypertension Diabetes mellitus Social History Social History Smoking status: Former smoker Tobacco type: cigarettes Second hand tobacco smoke exposure: Yes Additional smoking assessment comments: only smoked 3 to four months Alcohol intake: never Substance use: never Do You Feel Safe in your Home?: Yes Lack of Transportation: No Lack of Food: Never True Current Housing: I Have Housing Concerned About Future Housing: No Difficulty Paying Gas/Electric Bills: No Difficulty Paying for Meds: No Currently Unemployed: No Education: Grade School Difficulty w/ Childcare or Family Care: No Gender identity (if verbalized by the patient): Female Spiritual care concerns: No Meds Home Medications and Allergies Home Medications ?Medication ?Instructions ?Recorded ?Confirmed ?Type atorvastatin 40 mg tablet 40 mg PO DAILY 10/04/24 10/04/24 History canagliflozin 300 mg tablet 300 mg PO DAILY 10/04/24 10/04/24 History (Invokana) insulin glargine 100 unit/mL (3 16 unit subcut HS 10/04/24 10/04/24 History mL) subcutaneous pen (Lantus Solostar U-100 Insulin) levothyroxine 100 mcg tablet 100 mcg PO DAILY 10/04/24 10/04/24 History lisinopril 20 1 tablet PO DAILY 10/04/24 10/04/24 History mg-hydrochlorothiazide 12.5 mg tablet metformin 500 mg tablet,extended 500 mg PO DAILY 10/04/24 10/04/24 History release 24 hr norethindrone acetate 5 mg tablet 5 mg PO DAILY 10/04/24 10/04/24 History Allergies Allergy/AdvReac Type Severity Reaction Status Date / Time morphine AdvReac Nausea and Verified 10/04/24 22:53 Vomiting Vital Signs Vital Signs - 24 hr 10/04/24 17:16 10/04/24 17:44 10/04/24 17:46 Temperature 98.1 F Pulse Rate 119 H 115 H 118 H Respiratory Rate 20 40 H 34 H Blood Pressure 143/48 H 135/62 133/61 Pulse Oximetry 99 97 97 Oxygen Delivery Room Air 10/04/24 17:56 10/04/24 18:07 10/04/24 18:57 Temperature 102.3 F H Pulse Rate 117 H 118 H 118 H Respiratory Rate 36 H 32 H 44 H Blood Pressure 133/61 177/86 H Pulse Oximetry 98 96 95 Oxygen Delivery 10/04/24 18:57 10/04/24 19:02 10/04/24 20:29 Temperature Pulse Rate 117 H 117 H 119 H Respiratory Rate 34 H 30 H 38 H Blood Pressure 177/86 H 183/78 H 183/78 H Pulse Oximetry 94 97 95 Oxygen Delivery 10/04/24 21:15 10/04/24 22:56 10/04/24 23:07 Temperature 102.5 F H 102.5 F H Pulse Rate 120 H 124 H Respiratory Rate 42 H 40 H Blood Pressure 136/60 Pulse Oximetry 96 91 Oxygen Delivery Exam Narrative: Weight 82.4 kg BMI 39.3 H&P: Results Labs Labs: Laboratory Tests 10/04/24 23:05 10/04/24 23:05 10/04/24 10/04/24 10/04/24 17:19 18:01 18:01 WBC 22.5 H RBC 4.95 Hgb 7.8 L Hct 29.7 L MCV 60.0 L MCH 15.8 L MCHC 26.3 L RDW 21.7 H Plt Count 454 H MPV TNP Immature Gran % (Auto) Not Reportable Neut % (Auto) Not Reportable Lymph % (Auto) Not Reportable [place] % (Auto) Not Reportable Eos % (Auto) Not Reportable Baso % (Auto) Not Reportable Lymph # (Auto) Not Reportable [place] # (Auto) Not Reportable Eos # (Auto) Not Reportable Baso # (Auto) Not Reportable Abs Immat Gran (auto) Not Reportable Absolute Neuts (auto) Not Reportable Absolute Nucleated RBC Not Reportable Total Counted 100 Neutrophils % (Manual) 86 H Band Neutrophils % 4 Lymphocytes % (Manual) 6.0 L Monocytes % (Manual) 4 Nucleated RBC % Not Reportable Abs Neuts (Manual) 20.25 H Abs Lymphs (Manual) 1.35 Abs Monocytes (Manual) 0.90 Platelet Estimate Increased % Immature Plt Fraction 5.5 Polychromasia 1+ Hypochromasia 1+ Anisocytosis 3+ Microcytosis 1+ Schistocytes None seen VBG pH VBG pCO2 VBG pO2 VBG HCO3 O2 Delivery Device O2 Liters/Min FiO2 Sodium 136 L Potassium 3.5 Chloride 104 Carbon Dioxide 16 L Anion Gap 16 H BUN 5 L D Creatinine 0.37 L Estim Creat Clear Calc Not Reportable Estimated GFR > 60 Glucose 351 H POC Capillary Glucose 354 H Hemoglobin A1c Lactic Acid 2.1 H Calcium 9.3 Phosphorus 2.7 Magnesium 1.6 Total Bilirubin 0.8 AST 30 ALT 28 Alkaline Phosphatase 101 C-Reactive Protein 4.5 H Cancelled Total Protein 8.2 Albumin 4.3 Lipase 113 Beta-Hydroxybutyrate/Acetoacetate Procalcitonin Urine Color Urine Appearance Urine pH Ur Specific Effort Urine Protein Urine Glucose (UA) Urine Ketones Ur Blood (Man) Urine Nitrate Urine Bilirubin Urine Urobilinogen Leukocyte Esterase Rfl Urine RBC Urine WBC Ur Squamous Epith Cells Urine Bacteria Urine Casts POC Urine HCG, Qual Nasal MRSA (PCR) Blood Type Antibody Screen 10/04/24 10/04/24 10/04/24 18:01 18:07 18:09 WBC RBC Hgb Hct MCV MCH MCHC RDW Plt Count MPV Immature Gran % (Auto) Neut % (Auto) Lymph % (Auto) [place] % (Auto) Eos % (Auto) Baso % (Auto) Lymph # (Auto) [place] # (Auto) Eos # (Auto) Baso # (Auto) Abs Immat Gran (auto) Absolute Neuts (auto) Absolute Nucleated RBC Total Counted Neutrophils % (Manual) Band Neutrophils % Lymphocytes % (Manual) Monocytes % (Manual) Nucleated RBC % Abs Neuts (Manual) Abs Lymphs (Manual) Abs Monocytes (Manual) Platelet Estimate % Immature Plt Fraction Polychromasia Hypochromasia Anisocytosis Microcytosis Schistocytes VBG pH VBG pCO2 VBG pO2 VBG HCO3 O2 Delivery Device O2 Liters/Min FiO2 Sodium Potassium Chloride Carbon Dioxide Anion Gap BUN Creatinine Estim Creat Clear Calc Estimated GFR Glucose POC Capillary Glucose Hemoglobin A1c Lactic Acid Calcium Phosphorus Magnesium Total Bilirubin AST ALT Alkaline Phosphatase C-Reactive Protein Total Protein Albumin Lipase Cancelled Beta-Hydroxybutyrate/Acetoacetate 1.32 H Procalcitonin 0.3 Urine Color Yellow Urine Appearance Cloudy H Urine pH 5.5 Ur Specific Effort 1.037 H Urine Protein 1+ H Urine Glucose (UA) 3+ H Urine Ketones 3+ H Ur Blood (Man) Negative Urine Nitrate Positive H Urine Bilirubin Negative Urine Urobilinogen 0.2 Leukocyte Esterase Rfl Negative Urine RBC 0-2 Urine WBC 6-10 H Ur Squamous Epith Cells None seen Urine Bacteria 1+ H Urine Casts 0-2 POC Urine HCG, Qual Negative Nasal MRSA (PCR) Blood Type Antibody Screen 10/04/24 10/04/24 10/04/24 18:24 19:17 19:19 WBC RBC Hgb Hct MCV MCH MCHC RDW Plt Count MPV Immature Gran % (Auto) Neut % (Auto) Lymph % (Auto) [place] % (Auto) Eos % (Auto) Baso % (Auto) Lymph # (Auto) [place] # (Auto) Eos # (Auto) Baso # (Auto) Abs Immat Gran (auto) Absolute Neuts (auto) Absolute Nucleated RBC Total Counted Neutrophils % (Manual) Band Neutrophils % Lymphocytes % (Manual) Monocytes % (Manual) Nucleated RBC % Abs Neuts (Manual) Abs Lymphs (Manual) Abs Monocytes (Manual) Platelet Estimate % Immature Plt Fraction Polychromasia Hypochromasia Anisocytosis Microcytosis Schistocytes VBG pH 7.438 H* VBG pCO2 25.6 L* VBG pO2 48.6 H VBG HCO3 16.9 L O2 Delivery Device Not Reportable O2 Liters/Min Not Reportable FiO2 21 Sodium Potassium Chloride Carbon Dioxide Anion Gap BUN Creatinine Estim Creat Clear Calc Estimated GFR Glucose POC Capillary Glucose 313 H Hemoglobin A1c 11.7 H Lactic Acid Calcium Phosphorus Magnesium Total Bilirubin AST ALT Alkaline Phosphatase C-Reactive Protein Total Protein Albumin Lipase Beta-Hydroxybutyrate/Acetoacetate Procalcitonin Urine Color Urine Appearance Urine pH Ur Specific Effort Urine Protein Urine Glucose (UA) Urine Ketones Ur Blood (Man) Urine Nitrate Urine Bilirubin Urine Urobilinogen Leukocyte Esterase Rfl Urine RBC Urine WBC Ur Squamous Epith Cells Urine Bacteria Urine Casts POC Urine HCG, Qual Nasal MRSA (PCR) Blood Type O Positive Antibody Screen Negative 10/04/24 10/04/24 10/04/24 20:31 22:26 23:05 WBC RBC Hgb 7.1 L Hct 27.0 L MCV MCH MCHC RDW Plt Count MPV Immature Gran % (Auto) Neut % (Auto) Lymph % (Auto) [place] % (Auto) Eos % (Auto) Baso % (Auto) Lymph # (Auto) [place] # (Auto) Eos # (Auto) Baso # (Auto) Abs Immat Gran (auto) Absolute Neuts (auto) Absolute Nucleated RBC Total Counted Neutrophils % (Manual) Band Neutrophils % Lymphocytes % (Manual) Monocytes % (Manual) Nucleated RBC % Abs Neuts (Manual) Abs Lymphs (Manual) Abs Monocytes (Manual) Platelet Estimate % Immature Plt Fraction Polychromasia Hypochromasia Anisocytosis Microcytosis Schistocytes VBG pH VBG pCO2 VBG pO2 VBG HCO3 O2 Delivery Device O2 Liters/Min FiO2 Sodium 137 Potassium 2.7 L* Chloride 108 H Carbon Dioxide 14 L Anion Gap 15 H BUN 5 L Creatinine 0.40 L Estim Creat Clear Calc Not Reportable Estimated GFR > 60 Glucose 271 H POC Capillary Glucose 297 H 295 H Hemoglobin A1c Lactic Acid 2.8 H Calcium 8.2 L Phosphorus Magnesium Total Bilirubin AST ALT Alkaline Phosphatase C-Reactive Protein Total Protein Albumin Lipase Beta-Hydroxybutyrate/Acetoacetate Procalcitonin Urine Color Urine Appearance Urine pH Ur Specific Effort Urine Protein Urine Glucose (UA) Urine Ketones Ur Blood (Man) Urine Nitrate Urine Bilirubin Urine Urobilinogen Leukocyte Esterase Rfl Urine RBC Urine WBC Ur Squamous Epith Cells Urine Bacteria Urine Casts POC Urine HCG, Qual Nasal MRSA (PCR) Blood Type Antibody Screen 10/04/24 10/04/24 23:17 23:23 WBC RBC Hgb Hct MCV MCH MCHC RDW Plt Count MPV Immature Gran % (Auto) Neut % (Auto) Lymph % (Auto) [place] % (Auto) Eos % (Auto) Baso % (Auto) Lymph # (Auto) [place] # (Auto) Eos # (Auto) Baso # (Auto) Abs Immat Gran (auto) Absolute Neuts (auto) Absolute Nucleated RBC Total Counted Neutrophils % (Manual) Band Neutrophils % Lymphocytes % (Manual) Monocytes % (Manual) Nucleated RBC % Abs Neuts (Manual) Abs Lymphs (Manual) Abs Monocytes (Manual) Platelet Estimate % Immature Plt Fraction Polychromasia Hypochromasia Anisocytosis Microcytosis Schistocytes VBG pH VBG pCO2 VBG pO2 VBG HCO3 O2 Delivery Device O2 Liters/Min FiO2 Sodium Potassium Chloride Carbon Dioxide Anion Gap BUN Creatinine Estim Creat Clear Calc Estimated GFR Glucose POC Capillary Glucose 254 H Hemoglobin A1c Lactic Acid Calcium Phosphorus Magnesium Total Bilirubin AST ALT Alkaline Phosphatase C-Reactive Protein Total Protein Albumin Lipase Beta-Hydroxybutyrate/Acetoacetate Procalcitonin Urine Color Urine Appearance Urine pH Ur Specific Effort Urine Protein Urine Glucose (UA) Urine Ketones Ur Blood (Man) Urine Nitrate Urine Bilirubin Urine Urobilinogen Leukocyte Esterase Rfl Urine RBC Urine WBC Ur Squamous Epith Cells Urine Bacteria Urine Casts POC Urine HCG, Qual Nasal MRSA (PCR) Pending Blood Type Antibody Screen Impressions Abdomen/Pelvis CT 10/04/24 20:16 IMPRESSION: 1. No evidence of appendicitis, diverticulitis or intestinal obstruction. No kidney stones. 2. Hypodensity in the right kidney upper pole which may indicate a mass and less likely focal nephritis. Further evaluation and follow-up advised. 3. Tiny left adrenal nodule. No follow-up is clinically warranted. 4. Fibroid uterus. Ultrasound evaluation advised. 5. Hepatomegaly. Chest X-Ray 10/04/24 20:49 IMPRESSION: Bibasilar atelectasis versus pneumonia. Follow-up to resolution advised. EKG:Test Date: 2024-10-04 19:03:43 Measurements Intervals [place] Rate: 116 P: 30 [place]: 136 QRS: 31 QRSD: 86 T: 6 QT: 332 QTc: 463 Interpretive Statements SINUS TACHYCARDIA CONSIDER INFERIOR INFARCT, AGE INDETERMINATE ABNORMAL ECG No previous ECG available for comparison All imaging and EKGs personally reviewed and interpreted. And unless stated otherwise agree with radiologic and cardiology interpretation. Assessment and Plan Assessment and plan (1) DKA, type 2, not at goal: Code(s): E11.10 - Type 2 diabetes mellitus with ketoacidosis without coma Status: Acute (2) Sepsis: Qualifiers: Sepsis type: sepsis due to unspecified organism Sepsis acute organ dysfunction status: without acute organ dysfunction Qualified Code(s): A41.9 - Sepsis, unspecified organism Code(s): A41.9 - Sepsis, unspecified organism Status: Acute (3) Acute pyelonephritis: Code(s): N10 - Acute pyelonephritis Status: Acute (4) Acute hypokalemia: Code(s): E87.6 - Hypokalemia Status: Acute (5) Iron deficiency anemia: Qualifiers: Iron deficiency anemia type: chronic blood loss Qualified Code(s): D50.0 - Iron deficiency anemia secondary to blood loss (chronic) Code(s): D50.9 - Iron deficiency anemia, unspecified Status: Acute (6) Obesity, Class II, BMI 35-39.9: Code(s): E66.812 - Obesity, class 2 Status: Acute (7) Snoring: Code(s): R06.83 - Snoring Status: Acute (8) Metabolic acidosis with respiratory alkalosis: Code(s): E87.20 - Acidosis, unspecified; E87.3 - Alkalosis Status: Acute Plan The patient presents with DKA. Patient's baseline uncontrolled type 2 diabetes mellitus with A1c of greater than 11. She does not perform Accu-Cheks at home very often but is reportedly compliant with her medications. She has complications of diabetes including peripheral neuropathy and likely has some early diabetic nephropathy given presence of protein in her urine but denies any known chronic kidney disease. She received 4 L of isotonic fluids in the ER and repeat electrolyte panel demonstrated acute hypokalemia persistent anion gap acidosis and an even lower serum bicarb. She received 2 amps of sodium bicarb in the ER. She was started on insulin drip. Will continue insulin drip per protocol including hourly Accu-Cheks serial electrolyte panels and appropriate electrolyte replacement. Initial glucoses were in the upper 300s. Will transition IV fluids per DKA protocol. Will continue insulin drip until anion gap is closed in serum bicarb has normalized. Patient will be monitored in the ICU and cone examiner has been consulted. The importance of improved glucose control and strategies for management were discussed with the patient and her daughter in great detail. Patient will need increased dose of Lantus once gap is closed and bicarb is normalized. Will increase Lantus to 22 units from her home value of 16. Patient will also need mealtime bolus insulin as well as sliding scale insulin. She may benefit from continuous glucose monitoring as outpatient to help her more adequately address her hyperglycemia. The patient has sepsis due to acute right pyelonephritis. Blood cultures and urine cultures have been obtained and are pending. Will continue the antibiotic coverage with cefepime. The patient also received vancomycin in the ER. Patient received 4 L of isotonic fluids. Patient had persistent lactic acidosis despite fluid resuscitation. She is receiving fluids at 150 mL an hour per DKA protocol. The patient has acute hypokalemia and mild hypo magnesemia with magnesium level 1.6. Patient will receive for g magnesium sulfate rider and total of 80 of p.o. potassium as well as of 40 mEq potassium chloride rider. Patient's insulin drip had to be held when her potassium returned at 2.7. Once repeat potassium was verified to be above 3.5 the patient's insulin drip was resumed. Will repeat electrolyte panel per protocol. Patient has acute on chronic anemia likely due to iron deficiency given her history of menorrhagia. Sounds like she is supposed be on ferrous sulfate 3 times a day at home she reports that she is taking this although it is not med rec. Given persistent low fair 10 the on labs they obtained after admission and the remainder of her TIBC panel suggestive of iron deficiency. Will give the patient dose of Venofer 500 mg IV x1. Patient has been typed and screened. Given that the patient is receiving volume resuscitation it would not surprise me if patient meets criteria for or transfusion with morning labs. Patient does have witnessed episodes of apnea, snoring and body habitus suggestive of obstructive sleep apnea. Patient would benefit from outpatient polysomnogram. Patient does have a history of hypothyroidism home levothyroxine will be continued will check TSH. 90 minute spent in critical care activities most of the time of which was spent at bedside and detailed discussion with the patient and her daughter regarding strategies for management and importance of glycemic control in the future. In the risks of continued uncontrolled diabetes including loss of vision, kidney disease requiring transfusion developed vent of chronic foot wounds among other possible complications. Due to a high probability of clinically significant, life threatening deterioration, the patient required my highest level of preparedness to intervene emergently and I personally spent this critical care time directly and personally managing the patient. This critical care time included obtaining a history; examining the patient; pulse oximetry; ordering and review of studies; arranging urgent treatment with development of a management plan; evaluation of patient's response to treatment; frequent reassessment; and discussions with other providers. It was exclusive of separately billable procedures and treating other patients and teaching time. Please see Assessment and Plan section and the rest of the note for further information on patient assessment and treatment. Quality VTE Prophylaxis VTE prophylaxis: mechanical ordered (SCDs) Hospitalist MIPS Advance Care Plan I have confirmed that the patient's Advanced Care Plan is present, code status is documented, or surrogate decision maker is listed in patient medical record.: Yes Medication Reconciliation I have utilized all available resources to obtain, update and review the patients current medications (includes all prescriptions, OTC, herbals, cannabis, and nutritional supplements).: Yes
[2024-10-04] MEDS: MAGNESIUM SULF 4 GM/WATER100ML 4 GM/100 ML BAG IVPB (23:54)
[2024-10-04] MEDS: POTASSIUM CHLORIDE 20 MEQ PACKET (FOR LIQUID) 40 MEQ PO (23:56)
[2024-10-05] VITALS (29 sets, daily range): BP systolic 101–134; BP diastolic 49–78; PULSE 88–121; RESP 23–50; TEMP 36.7–39.4; O2SAT 93–100
[2024-10-05] MEDS: POTASSIUM CHLORIDE INJ 40 MEQ in SODIUM CHLORIDE 0.9% IV 500 ML 130 MEQ IVPB ×2 (00:10→18:28)
[2024-10-05 00:31] LABS: MRSA (PCR) NOT DETECTED (NOT DETECTE)
[2024-10-05] MEDS: POTASSIUM CHLORIDE 20 MEQ PACKET (FOR LIQUID) 40 MEQ PO (01:11)
[2024-10-05 02:08] LABS: Glucose Point of Care 278 mg/dl (65-105)
[2024-10-05 02:43] LABS: Iron 19 ug/dL (37-170)
[2024-10-05 02:48] LABS: Anion Gap 13 mmol/L (4-12); Blood Urea Nitrogen 3 mg/dL (7-17); Calcium 8.3 mg/dL (8.4-10.2); Carbon Dioxide 13 mmol/L (22-30); Chloride 110 mmol/L (98-107); Estimated Glomerular Filt Rate > 60; Glucose 277 mg/dL (65-110); Lactate Dehydrogenase 165 U/L (120-246); Potassium 4.8 mmol/L (3.4-5.0); Sodium 136 mmol/L (137-145)
[2024-10-05 02:54] LABS: Percent Iron Saturation 4 % (20-50)
[2024-10-05] MEDS: ONDANSETRON INJ 4 MG/2 ML VIAL IV PUSH (03:10)
[2024-10-05] MEDS: ACETAMINOPHEN 325 MG TABLET 650 MG PO ×3 (03:13→18:40)
[2024-10-05 03:16] LABS: Thyroid Stimulating Hormone Reflex 0.431 uIU/mL (0.465-4.68)
[2024-10-05 03:32] LABS: Glucose Point of Care 295 mg/dl (65-105)
[2024-10-05 03:58] LABS: Folic Acid 11.1 ng/mL (2.76->20)
[2024-10-05] MEDS: IBUPROFEN IV 800 MG/200 ML 800 MG/200 ML BAG 400 MG IVPB (04:16)
[2024-10-05 04:21] LABS: Glucose Point of Care 282 mg/dl (65-105)
[2024-10-05 05:25] LABS: Glucose Point of Care 281 mg/dl (65-105)
[2024-10-05] MEDS: IRON SUCROSE COMPLEX 400 MG, IRON SUCROSE COMPLEX 100 MG in SODIUM CHLORIDE 0.9% IV 250 ML 78.57 MG IVPB (06:00)
[2024-10-05 06:06] LABS: Glucose Point of Care 240 mg/dl (65-105)
[2024-10-05] MEDS: KCL 20 MEQ/D5/0.45% SOD CHL 1,000 ML 150 ML IV CONT (06:08)
[2024-10-05] MEDS: LEVOTHYROXINE SODIUM 100 MCG TABLET PO (06:09)
[2024-10-05 06:38] LABS: Basophils Percent Auto 0.2 % (0.2-1.2); Eosinophils Absolute Auto 0.1 K/mm3 (0-0.3); Eosinophils Percent Auto 0.6 % (0-4.4); Hematocrit 24.7 % (37.0-47.0); Immature Granulocyte Absolute 0.11 K/mm3 (0.00-0.031); Immature Granulocyte Percent A 0.6 % (0-0.5); Immature Platelet Fraction Pct 5.2 % (0.9-11.2); Lymphocytes Absolute Auto 0.74 K/mm3 (0.9-3.2); Lymphocytes Percent Auto 4.1 % (18.3-44.2); Mean Corpuscular HGB Conc 27.1 g/dl (32-36); Mean Corpuscular Hemoglobin 16.4 pg (26-34); Mean Corpuscular Volume 60.4 fl (80-100); Monocytes Absolute Auto 0.5 K/mm3 (0.1-0.6); Monocytes Percent Auto 2.9 % (2.6-8.5); Neutrophils Absolute Auto 16.6 K/mm3 (1.3-6.7); Neutrophils Percent Auto 91.6 % (45.5-73.1); Platelet Count Result 324 k/mm3 (150-375); Red Blood Count 4.09 M/mm3 (4.2-5.4); Red Cell Distribution Width 21.3 % (11.5-14.5); White Blood Count 18.1 K/mm3 (4.5-10.0)
[2024-10-05 06:46] LABS: Lactic Acid Reflex 2.2 mmol/L (0.7-2.0)
[2024-10-05 06:51] LABS: Anion Gap 10 mmol/L (4-12); Blood Urea Nitrogen 3 mg/dL (7-17); Calcium 8.2 mg/dL (8.4-10.2); Carbon Dioxide 15 mmol/L (22-30); Chloride 112 mmol/L (98-107); Estimated Glomerular Filt Rate > 60; Glucose 245 mg/dL (65-110); Potassium 3.8 mmol/L (3.4-5.0); Sodium 137 mmol/L (137-145)
[2024-10-05 07:12] LABS: Glucose Point of Care 271 mg/dl (65-105)
[2024-10-05 07:13] LABS: Hemoglobin 6.7 g/dL (12.0-15.0)
[2024-10-05 07:14] LABS: Anisocytosis 2+; Hypochromasia 2+; Ovalocytes 1+; Platelet Estimate Adequate (Adequate); Schistocytes None Seen; Target Cells 1+
[2024-10-05 08:01] LABS: Free T4 Free Thyroxine Reflex 1.28 ng/dL (0.78-2.19)
[2024-10-05 08:05] LABS: Glucose Point of Care 236 mg/dl (65-105)
[2024-10-05] MEDS: ATORVASTATIN 40 MG TABLET PO (08:15)
[2024-10-05] MEDS: hydroCHLOROthiazide 12.5 MG CAPSULE PO (08:15)
[2024-10-05] MEDS: lisinopriL 20 MG TABLET PO (08:15)
[2024-10-05 08:31] LABS: Reflex Lactic Acid Yes or No Add Lactic
[2024-10-05 09:13] LABS: Lactic Acid 2.8 mmol/L (0.7-2.0)
[2024-10-05] MEDS: INSULIN GLARGINE (*BKC) 100 UNITS/ML 22 UNITS SUB-Q (09:22)
[2024-10-05] MEDS: KCL 20 MEQ/0.45% NS 1,000 ML 50 ML IV CONT (09:23)
[2024-10-05 09:28] LABS: Glucose Point of Care 331 mg/dl (65-105)
--- NOTE | 2024-10-05 09:28 | P.CONIN_ITS ---
Assessment and Plan Assessment and plan (1) DKA, type 2, not at goal: Code(s): E11.10 - Type 2 diabetes mellitus with ketoacidosis without coma Status: Acute Assessment and Plan: Patient presented with DKA and looks like has uncontrolled diabetes mellitus Clinically improved anion gap has closed patient still on high dose of insulin infusion I will switch IV fluids to non dextrose IV fluids and try to wean down insulin drip Resume Lantus, start consistent carbohydrate diet Consult dietitian and chemical educator Hold Invokana metformin (2) Sepsis: Qualifiers: Sepsis acute organ dysfunction status: without acute organ dysfunction Sepsis type: sepsis due to unspecified organism Qualified Code(s): A41.9 - Sepsis, unspecified organism Code(s): A41.9 - Sepsis, unspecified organism Status: Acute Assessment and Plan: Sepsis secondary to UTI. Received IV fluid bolus and is currently on IV fluids which I will continue but at low rate Patient has not required any vasopressors but lactate is slightly slightly elevated which could be secondary to metformin Procalcitonin level was low. UA is abnormal Culture sent. Continue cefepime. Discontinue vancomycin. (3) UTI (urinary tract infection): Code(s): N39.0 - Urinary tract infection, site not specified Status: Acute Assessment and Plan: See above (4) Hypothyroidism: Code(s): E03.9 - Hypothyroidism, unspecified Status: Acute Assessment and Plan: Continue Synthroid (5) Iron deficiency anemia: Qualifiers: Iron deficiency anemia type: chronic blood loss Qualified Code(s): D 50.0 - Iron deficiency anemia secondary to blood loss (chronic) Code(s): D50.9 - Iron deficiency anemia, unspecified Status: Acute Assessment and Plan: Patient has history of iron deficiency anemia. She states she had a colonoscopy last year which was negative. It appears the patient has history of menorrhagia is leading to chronic anemia. Her hemoglobin dropped further likely secondary to hemodilution. She is getting iron infusion and 1 unit of PRBC. Monitor and transfuse additionally if needed Plan DVT prophylaxis -SCDs Stress ulcer prophylaxis -PPI Nutrition -diet ordered Code Status - Full Code I updated patient's daughter and other family was at bedside. Total Critical Care Time - 40 minutes Due to a high probability of clinically significant, life threatening deterioration, the patient required my highest level of preparedness to intervene emergently and I personally spent this critical care time directly and personally managing the patient. This critical care time included obtaining a history; examining the patient; pulse oximetry; ordering and review of studies; arranging urgent treatment with development of a management plan; evaluation of patient's response to treatment; frequent reassessment; and discussions with other providers. It was exclusive of separately billable procedures and treating other patients and teaching time. Please see Assessment and Plan section and the rest of the note for further information on patient assessment and treatment Chief Innovation Officer Consult Note Consult date: 10/05/24 Reason for consult: DKA, sepsis HPI: Harini Cid is a 54 year old female female with a past medical history of obesity, poorly controlled insulin-dependent diabetes mellitus, hypothyroidism, essential hypertension and recent UTI treated as outpatient 3 weeks ago who presented to the ER via EMS from home yesterday due to right side/flank pain starting around 03:00. Patient states pain was 8 out 10 and did not radiate anywhere else. Pain was achy constant. She had nausea and vomiting associated with it. No hematochezia hematemesis or melena no dysuria hematuria. No fever chest pain shortness a breath or cough. No dizziness lightheadedness. She states she is still having periods. She had a uterine biopsy done a while ago and she stated to was negative for cancer. She states she has fibroids. Over last few days she was feeling thirsty all the time and also was having frequent micturition. All other systems were reviewed and were negative Evaluation in the ER showed that She was afebrile on arrival to the ER but shortly thereafter developed a fever with a T-max of 102.5?. Her glucoses in the ER were 351. She was found to be having elevated anion gap and was diagnosed with DKA she was given IV fluids started on IV antibiotics and insulin and admitted to ICU for further evaluation management. Review of Systems 2 Review of Systems: All systems reviewed & are unremarkable except as noted in HPI and below (HPI) PMFSH Past Medical History Medical History PCOS (polycystic ovarian syndrome) Obesity, Class II, BMI 35-39.9 Iron deficiency anemia History of UTI Insulin dependent diabetes mellitus DKA (diabetic ketoacidosis) History of hypertension Surgical History Surgical History S/P right rotator cuff repair (~2012) History of 3 sections History of laparoscopic cholecystectomy (~2004) Family History Family History Father Acute myocardial infarction Cerebrovascular accident Diabetes mellitus Hypertension Sibling Diabetes mellitus Father No problems noted. Mother Hypertension Diabetes mellitus Social History Social History Smoking status: Former smoker Tobacco type: cigarettes Second hand tobacco smoke exposure: Yes Additional smoking assessment comments: only smoked 3 to four months Alcohol intake: never Substance use: never Do You Feel Safe in your Home?: Yes Lack of Transportation: No Lack of Food: Never True Current Housing: I Have Housing Concerned About Future Housing: No Difficulty Paying Gas/Electric Bills: No Difficulty Paying for Meds: No Currently Unemployed: No Education: Grade School Difficulty w/ Childcare or Family Care: No Gender identity (if verbalized by the patient): Female Spiritual care concerns: No Meds Home Medications and Allergies Home Medications ?Medication ?Instructions ?Recorded ?Confirmed ?Type atorvastatin 40 mg tablet 40 mg PO DAILY 10/04/24 10/04/24 History canagliflozin 300 mg tablet 300 mg PO DAILY 10/04/24 10/04/24 History (Invokana) insulin glargine 100 unit/mL (3 16 unit subcut HS 10/04/24 10/04/24 History mL) subcutaneous pen (Lantus Solostar U-100 Insulin) levothyroxine 100 mcg tablet 100 mcg PO DAILY 10/04/24 10/04/24 History lisinopril 20 1 tablet PO DAILY 10/04/24 10/04/24 History mg-hydrochlorothiazide 12.5 mg tablet metformin 500 mg tablet,extended 500 mg PO DAILY 10/04/24 10/04/24 History release 24 hr norethindrone acetate 5 mg tablet 5 mg PO DAILY 10/04/24 10/04/24 History Allergies Allergy/AdvReac Type Severity Reaction Status Date / Time morphine AdvReac Nausea and Verified 10/04/24 22:53 Vomiting Vital Signs Vital Signs - 24 hr 10/04/24 17:16 10/04/24 17:44 10/04/24 17:46 Temperature 36.7 C Pulse Rate 119 H 115 H 118 H Respiratory Rate 20 40 H 34 H Blood Pressure 143/48 H 135/62 133/61 Pulse Oximetry 99 97 97 Oxygen Delivery Room Air 10/04/24 17:56 10/04/24 18:07 10/04/24 18:57 Temperature 39.1 C H Pulse Rate 117 H 118 H 118 H Respiratory Rate 36 H 32 H 44 H Blood Pressure 133/61 177/86 H Pulse Oximetry 98 96 95 Oxygen Delivery 10/04/24 18:57 10/04/24 19:02 10/04/24 20:29 Temperature Pulse Rate 117 H 117 H 119 H Respiratory Rate 34 H 30 H 38 H Blood Pressure 177/86 H 183/78 H 183/78 H Pulse Oximetry 94 97 95 Oxygen Delivery 10/04/24 21:15 10/04/24 22:56 10/04/24 23:07 Temperature 39.2 C H 39.2 C H Pulse Rate 120 H 124 H Respiratory Rate 42 H 40 H Blood Pressure 136/60 Pulse Oximetry 96 91 Oxygen Delivery 10/04/24 23:30 10/05/24 00:00 10/05/24 00:00 Temperature 38.2 C H Pulse Rate 121 H 121 H Respiratory Rate 31 H Blood Pressure 106/50 L Pulse Oximetry 96 Oxygen Delivery Room Air 10/05/24 00:03 10/05/24 02:00 10/05/24 02:00 Temperature 38.2 C H Pulse Rate 111 H 111 H Respiratory Rate 37 H Blood Pressure Pulse Oximetry 93 Oxygen Delivery 10/05/24 02:30 10/05/24 03:13 10/05/24 04:00 Temperature 39.4 C H 37.7 C H 37.3 C Pulse Rate 116 H Respiratory Rate 33 H Blood Pressure 101/49 L 108/71 Pulse Oximetry 94 Oxygen Delivery 10/05/24 04:00 10/05/24 04:00 10/05/24 04:16 Temperature 37.3 C Pulse Rate 114 H Respiratory Rate 33 H Blood Pressure Pulse Oximetry 93 Oxygen Delivery Room Air 10/05/24 06:00 10/05/24 06:00 10/05/24 08:00 Temperature 36.7 C 37.0 C Pulse Rate 99 99 91 Respiratory Rate 26 H 34 H Blood Pressure 126/73 116/70 Pulse Oximetry 97 95 Oxygen Delivery Exam 2 Narrative: General: Pt is alert awake and in NAD Lungs/Chest: Trachea central Clear BS B/L, No crackles or wheezing. Cardiac: RRR. Normal S1 S2. No murmurs Circulation: Pedal pulses are intact and symmetrical. Abdomen: Normal bowel sounds. Obese. Soft. NT. ND. Extremities: No clubbing, cyanosis or edema. Warm : [place] in place Neurologic: Follows commands. Moves all 4 extremities PERRL AO x3 Skin: No Rash Results Labs 10/05/24 06:27 10/05/24 10:06 Labs: Short CBC 10/04/24 10/04/24 10/05/24 Range/Units 18:01 23:05 06:27 WBC 22.5 H 18.1 H (4.5-10.0) K/mm3 Hgb 7.8 L 7.1 L 6.7 L* (12.0-15.0) g/dL Hct 29.7 L 27.0 L 24.7 L (37.0-47.0) % Plt Count 454 H 324 (150-375) k/mm3 BMP 10/04/24 10/04/24 10/05/24 18:01 23:05 02:28 Sodium 136 L 137 136 L Potassium 3.5 2.7 L* 4.8 Chloride 104 108 H 110 H Carbon Dioxide 16 L 14 L 13 L BUN 5 L D 5 L 3 L Creatinine 0.37 L 0.40 L 0.43 L Glucose 351 H 271 H 277 H Calcium 9.3 8.2 L 8.3 L 10/05/24 06:27 Sodium 137 Potassium 3.8 Chloride 112 H Carbon Dioxide 15 L BUN 3 L Creatinine 0.42 L Glucose 245 H Calcium 8.2 L Liver Function 10/04/24 Range/Units 18:01 Total Bilirubin 0.8 (0.2-1.3) mg/dL AST 30 (14-36) U/L ALT 28 (6-35) U/L Alkaline Phosphatase 101 (38-126) U/L Albumin 4.3 (3.5-5.1) g/dL Urine 10/04/24 Range/Units 18:09 Urine Color Yellow (Yellow) Urine Appearance Cloudy H (Clear) Urine pH 5.5 (5.0-9.0) Ur Specific [place] 1.037 H (1.001-1.035) Urine Protein 1+ H (Negative) mg/dL Urine Glucose (UA) 3+ H (Negative) mg/dL
[2024-10-05] MEDS: CEFEPIME 1 GM/NS 50 ML 1 GM/50 ML BAG IVPB ×2 (09:30→21:03)
[2024-10-05 10:13] LABS: Glucose Point of Care 306 mg/dl (65-105)
[2024-10-05 10:33] LABS: Anion Gap 12 mmol/L (4-12); Blood Urea Nitrogen 3 mg/dL (7-17); Calcium 8.3 mg/dL (8.4-10.2); Carbon Dioxide 13 mmol/L (22-30); Chloride 112 mmol/L (98-107); Estimated Glomerular Filt Rate > 60; Glucose 312 mg/dL (65-110); Potassium 3.8 mmol/L (3.4-5.0); Sodium 137 mmol/L (137-145)
[2024-10-05 10:43] LABS: Total Triiodothyronine (T3) 0.63 NG/ML (0.82-1.58)
--- NOTE | 2024-10-05 10:59 | ECG_ITS ---
Test Date: 2024-10-05 11:05:27 Measurements Intervals [place] Rate: 126 P: 19 NE: 131 QRS: 2 QRSD: 85 T: 0 QT: 301 QTc: 437 Interpretive Statements SINUS TACHYCARDIA CONSIDER INFERIOR INFARCT, AGE INDETERMINATE BASELINE ARTIFACT- I, II, III, AVR, AVL, AVF, V1, V3-V6 ABNORMAL ECG Compared to ECG 10/04/2024 19:03:43 HEART RATE HAS INCREASED Electronically Signed On 10-06-2024 07:01:53 CDT by Jorge Collins D.O.
[2024-10-05] MEDS: LIDOCAINE 1% PF INJ 5 ML VIAL INFILTRATE (11:00)
--- NOTE | 2024-10-05 11:04 | P.PNCROSS_ITS ---
Event Note Event Note Event Note: PICC line was placed due to lack of IV access. After that patient started comp laining of chest pain and difficulty breathing. Patient states the pain was in the middle the chest and are 10 and pressure. She was tachypneic but on lung exam she had no wheezing or crackles. Check EKG and troponin IV p.r.n. morphine and nitroglycerin sublingual Supplemental oxygen Check BNP and echo Aspirin
[2024-10-05] MEDS: NITROGLYCERIN SL 0.4 MG TABLET SUBLINGUAL ×2 (11:10→11:35)
[2024-10-05] MEDS: MORPHINE SULFATE (*CRX) 4 MG/ML INJ IM (11:10)
[2024-10-05] MEDS: SODIUM BICARBONATE TAB 650 MG TABLET PO ×2 (11:11→17:20)
[2024-10-05] MEDS: ASPIRIN 81 MG CHEWABLE TABLET 324 MG PO (11:12)
[2024-10-05] MEDS: INSULIN HUMAN REGULAR (*BKC) 100 UNITS in SODIUM CHLORIDE 0.9% IV 99 ML 6.5 UNITS IV CONT (11:17)
[2024-10-05] MEDS: SODIUM BICARBONATE 8.4% 50 MEQ/50 ML SYRINGE IV PUSH (11:21)
[2024-10-05] MEDS: FUROSEMIDE INJ 40 MG/4 ML VIAL IV PUSH (11:28)
[2024-10-05 11:41] LABS: Glucose Point of Care 280 mg/dl (65-105)
--- NOTE | 2024-10-05 11:50 | P.PNIM_ITS ---
Progress Note: A&P Assessment and Plan (1) DKA, type 2, not at goal: Code(s): E11.10 - Type 2 diabetes mellitus with ketoacidosis without coma Status: Acute Assessment and Plan: Patient presented with DKA and looks like has uncontrolled diabetes mellitus Clinically improved anion gap has closed patient still on high dose of insulin infusion I will switch IV fluids to non dextrose IV fluids and try to wean down insulin drip Resume Lantus, start consistent carbohydrate diet Consult dietitian and family living educator Hold Invokana metformin (2) Sepsis: Qualifiers: Sepsis acute organ dysfunction status: without acute organ dysfunction Sepsis type: sepsis due to unspecified organism Qualified Code(s): A41.9 - Sepsis, unspecified organism Code(s): A41.9 - Sepsis, unspecified organism Status: Acute Assessment and Plan: Sepsis secondary to UTI. Received IV fluid bolus and is currently on IV fluids which I will continue but at low rate Patient has not required any vasopressors but lactate is slightly slightly elevated which could be secondary to metformin Procalcitonin level was low. UA is abnormal Culture sent. Continue cefepime. Discontinue vancomycin. (3) UTI (urinary tract infection): Code(s): N39.0 - Urinary tract infection, site not specified Status: Acute Assessment and Plan: See above (4) Hypothyroidism: Code(s): E03.9 - Hypothyroidism, unspecified Status: Acute Assessment and Plan: Continue Synthroid (5) Iron deficiency anemia: Qualifiers: Iron deficiency anemia type: chronic blood loss Qualified Code(s): D50.0 - Iron deficiency anemia secondary to blood loss (chronic) Code(s): D50.9 - Iron deficiency anemia, unspecified Status: Acute Assessment and Plan: Hb 6.7, Ferritin 11 transfuse 1 unit s/p 1000/1000 GI consulted for GI bleed monitor Plan Acute hypoxemic respiratory failure liekly from pum edema ECHO pending On BiPAP and Lasix monitor DVT prophylaxis -SCDs Stress ulcer prophylaxis -PPI Nutrition -diet ordered Code Status - 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 Except as documented in the HPI, all other systems were reviewed and are negative. All systems reviewed & are unremarkable except as noted in HPI and below (HPI) Exam Narrative: General: Pt is alert awake and in NAD Lungs/Chest: Trachea central Clear BS B/L, No crackles or wheezing. Cardiac: RRR. Normal S1 S2. No murmurs Circulation: Pedal pulses are intact and symmetrical. Abdomen: Normal bowel sounds. Obese. Soft. NT. ND. Extremities: No clubbing, cyanosis or edema. Warm : [place] in place Neurologic: Follows commands. Moves all 4 extremities PERRL AO x3 Skin: No Rash Objective Data Vital Signs Vital Signs: Vital Signs - 24 hr 10/04/24 17:16 10/04/24 17:44 10/04/24 17:46 Temperature 98.1 F Pulse Rate 119 H 115 H 118 H Respiratory Rate 20 40 H 34 H Blood Pressure 143/48 H 135/62 133/61 Pulse Oximetry 99 97 97 Oxygen Delivery Room Air Oxygen Flow Rate Fraction of Inspired Oxygen 10/04/24 17:56 10/04/24 18:07 10/04/24 18:57 Temperature 102.3 F H Pulse Rate 117 H 118 H 118 H Respiratory Rate 36 H 32 H 44 H Blood Pressure 133/61 177/86 H Pulse Oximetry 98 96 95 Oxygen Delivery Oxygen Flow Rate Fraction of Inspired Oxygen 10/04/24 18:57 10/04/24 19:02 10/04/24 20:29 Temperature Pulse Rate 117 H 117 H 119 H Respiratory Rate 34 H 30 H 38 H Blood Pressure 177/86 H 183/78 H 183/78 H Pulse Oximetry 94 97 95 Oxygen Delivery Oxygen Flow Rate Fraction of Inspired Oxygen 10/04/24 21:15 10/04/24 22:56 10/04/24 23:07 Temperature 102.5 F H 102.5 F H Pulse Rate 120 H 124 H Respiratory Rate 42 H 40 H Blood Pressure 136/60 Pulse Oximetry 96 91 Oxygen Delivery Oxygen Flow Rate Fraction of Inspired Oxygen 10/04/24 23:30 10/05/24 00:00 10/05/24 00:00 Temperature 100.7 F H Pulse Rate 121 H 121 H Respiratory Rate 31 H Blood Pressure 106/50 L Pulse Oximetry 96 Oxygen Delivery Room Air Oxygen Flow Rate Fraction of Inspired Oxygen 10/05/24 00:03 10/05/24 02:00 10/05/24 02:00 Temperature 100.7 F H Pulse Rate 111 H 111 H Respiratory Rate 37 H Blood Pressure Pulse Oximetry 93 Oxygen Delivery Oxygen Flow Rate Fraction of Inspired Oxygen 10/05/24 02:30 10/05/24 03:13 10/05/24 04:00 Temperature 103 F H 99.8 F H 99.1 F Pulse Rate 116 H Respiratory Rate 33 H Blood Pressure 101/49 L 108/71 Pulse Oximetry 94 Oxygen Delivery Oxygen Flow Rate Fraction of Inspired Oxygen 10/05/24 04:00 10/05/24 04:00 10/05/24 04:16 Temperature 99.1 F Pulse Rate 114 H Respiratory Rate 33 H Blood Pressure Pulse Oximetry 93 Oxygen Delivery Room Air Oxygen Flow Rate Fraction of Inspired Oxygen 10/05/24 06:00 10/05/24 06:00 10/05/24 08:00 Temperature 98.1 F 98.6 F Pulse Rate 99 99 91 Respiratory Rate 26 H 34 H Blood Pressure 126/73 116/70 Pulse Oximetry 97 95 Oxygen Delivery Oxygen Flow Rate Fraction of Inspired Oxygen 10/05/24 08:00 10/05/24 08:00 10/05/24 10:00 Temperature 99.0 F Pulse Rate 88 94 Respiratory Rate 29 H Blood Pressure 120/67 Pulse Oximetry 98 Oxygen Delivery Room Air Oxygen Flow Rate Fraction of Inspired Oxygen 10/05/24 10:00 10/05/24 11:15 10/05/24 11:23 Temperature Pulse Rate 89 118 H Respiratory Rate 50 H Blood Pressure Pulse Oximetry 97 98 Oxygen Delivery Nasal Cannula CPAP Oxygen Flow Rate 5 Fraction of Inspired Oxygen 40 Intake/Output Intake/Output: Intake & Output 10/02/24 10/03/24 10/04/24 10/05/24 23:59 23:59 23:59 23:59 Intake Total 2569.2 1989.2 Output Total 1100 Balance 2569.2 889.2 Meds/Results Medications: Active Medications Generic Name Dose Route Start Last Admin Trade Name Freq PRN Reason Stop Dose Admin Acetaminophen 650 mg 10/04/24 21:34 10/05/24 10:11 Acetaminophen 325 Mg Tablet PO 650 mg Q4H PRN Administration Mild Pain (1-3) or Fever Atorvastatin Calcium 40 mg 10/05/24 09:00 10/05/24 08:15 Atorvastatin 40 Mg Tablet PO 40 mg DAILY FLACO Administration Dextrose 12.5 gm 10/04/24 19:05 Dextrose 50% 25 Gm/50 Ml Syringe IV PUSH PRN PRN Hypoglycemia Protocol Glucagon 1 mg 10/04/24 19:05 Glucagon For Inj 1 Mg Vial IM PRN PRN Hypoglycemia Protocol Glucose 15 gm 10/04/24 19:05 Glucose Oral Gel 15 Gm Of Glucse In 37.5 Gm Tube PO PRN PRN Hypoglycemia Protocol Insulin Human Regular 100 100 mls @ 6.5 mls/hr 10/04/24 19:30 10/05/24 11:17 units/ Sodium Chloride IV CONT 6.5 units/hr .[id number] FLACO 6.5 mls/hr Administration Protocol 6.5 UNITS/HR Dextrose 1,000 mls @ 100 mls/hr 10/04/24 19:05 Dextrose 5% 1,000 Ml IVPB PRN PRN Hypoglycemia Protocol Cefepime HCl 1 gm in 50 mls @ 100 mls/hr 10/05/24 08:00 10/05/24 09:30 Maxipime 1 Gm/Ns 50 Ml IVPB 100 mls/hr Q12H FLACO Administration Sodium Chloride 250 mls @ 30 mls/hr 10/05/24 10:41 Normal Saline Iv IV CONT 10/05/24 19:00 .[id number] STA Insulin Glargine 22 units 10/05/24 09:00 10/05/24 09:22 Insulin Glargine (*Bkc) 100 Units/Ml SUB-Q 22 units QAM [facility] Administration Levothyroxine Sodium 100 mcg 10/05/24 06:30 10/05/24 06:09 Levothyroxine Sodium 100 Mcg Tablet PO 100 mcg DAILY@0630 [facility] Administration Lisinopril 20 mg 10/05/24 09:00 10/05/24 08:15 Lisinopril 20 Mg Tablet PO 20 mg QAM FLACO Administration Morphine Sulfate 2 mg 10/05/24 11:02 Morphine Sulfate (*Crx) 2 Mg/Ml Inj IV PUSH Q2H PRN Pain Rated 7-10 Nitroglycerin 0.4 mg 10/05/24 10:59 10/05/24 11:35 Nitroglycerin Sl 0.4 Mg Tablet SUBLINGUAL 0.4 mg Q5MIN PRN Administration Chest Pain Ondansetron HCl 4 mg 10/04/24 21:34 10/05/24 03:10 Ondansetron Inj 4 Mg/2 Ml Vial IV PUSH 4 mg Q4H PRN Administration Nausea Perflutren Lipid Microsphere 0 ml 10/05/24 10:54 Perflutren Lipid Microspheres 1.5 Ml Vial Diluted To 10 Ml Total Volume IV PUSH 10/08/24 10:54 ONCE PRN adequate visualization Protocol Sodium Bicarbonate 650 mg 10/05/24 11:00 10/05/24 11:11 Sodium Bicarbonate Tab 650 Mg Tablet PO 650 mg BID FLACO Administration Radiology Results: ITS Impressions Abdomen/Pelvis CT 10/04/24 20:16 IMPRESSION: 1. No evidence of appendicitis, diverticulitis or intestinal obstruction. No kidney stones. 2. Hypodensity in the right kidney upper pole which may indicate a mass and less likely focal nephritis. Further evaluation and follow-up advised. 3. Tiny left adrenal nodule. No follow-up is clinically warranted. 4. Fibroid uterus. Ultrasound evaluation advised. 5. Hepatomegaly. Chest X-Ray 10/05/24 11:24 Impression: Minimal congestive change and probable minimal bibasilar pulmonary edema. Right-sided PICC line in place. Labs Labs: Laboratory Results - last 24 hr 10/04/24 10/04/24 10/04/24 17:19 18:01 18:01 WBC 22.5 H RBC 4.95 Hgb 7.8 L Hct 29.7 L MCV 60.0 L MCH 15.8 L MCHC 26.3 L RDW 21.7 H Plt Count 454 H MPV TNP Immature Gran % (Auto) Not Reportable Neut % (Auto) Not Reportable Lymph % (Auto) Not Reportable [place] % (Auto) Not Reportable Eos % (Auto) Not Reportable Baso % (Auto) Not Reportable Lymph # (Auto) Not Reportable [place] # (Auto) Not Reportable Eos # (Auto) Not Reportable Baso # (Auto) Not Reportable Abs Immat Gran (auto) Not Reportable Absolute Neuts (auto) Not Reportable Absolute Nucleated RBC Not Reportable Total Counted 100 Neutrophils % (Manual) 86 H Band Neutrophils % 4 Lymphocytes % (Manual) 6.0 L Monocytes % (Manual) 4 Nucleated RBC % Not Reportable Abs Neuts (Manual) 20.25 H Abs Lymphs (Manual) 1.35 Abs Monocytes (Manual) 0.90 Platelet Estimate Increased % Immature Plt Fraction 5.5 Polychromasia 1+ Hypochromasia 1+ Anisocytosis 3+ Microcytosis 1+ Target Cells Ovalocytes Schistocytes None seen VBG pH VBG pCO2 VBG pO2 VBG HCO3 O2 Delivery Device O2 Liters/Min FiO2 Sodium 136 L Potassium 3.5 Chloride 104 Carbon Dioxide 16 L Anion Gap 16 H BUN 5 L D Creatinine 0.37 L Estim Creat Clear Calc Not Reportable Estimated GFR > 60 Glucose 351 H POC Capillary Glucose 354 H Hemoglobin A1c Lactic Acid 2.1 H Calcium 9.3 Phosphorus 2.7 Magnesium 1.6 Iron TIBC % Saturation Ferritin Total Bilirubin 0.8 AST 30 ALT 28 Alkaline Phosphatase 101 Lactate Dehydrogenase Troponin I C-Reactive Protein 4.5 H Cancelled Total Protein 8.2 Albumin 4.3 Lipase 113 Vitamin B12 Folate Beta-Hydroxybutyrate/Acetoacetate Procalcitonin TSH (Reflex) Free T4 Total T3 Urine Color Urine Appearance Urine pH Ur Specific [place] Urine Protein Urine Glucose (UA) Urine Ketones Ur Blood (Man) Urine Nitrate Urine Bilirubin Urine Urobilinogen Leukocyte Esterase Rfl Urine RBC Urine WBC Ur Squamous Epith Cells Urine Bacteria Urine Casts POC Urine HCG, Qual Nasal MRSA (PCR) Blood Type Antibody Screen Crossmatch 10/04/24 10/04/24 10/04/24 18:01 18:07 18:09 WBC RBC Hgb Hct MCV MCH MCHC RDW Plt Count MPV Immature Gran % (Auto) Neut % (Auto) Lymph % (Auto) [place] % (Auto) Eos % (Auto) Baso % (Auto) Lymph # (Auto) [place] # (Auto) Eos # (Auto) Baso # (Auto) Abs Immat Gran (auto) Absolute Neuts (auto) Absolute Nucleated RBC Total Counted Neutrophils % (Manual) Band Neutrophils % Lymphocytes % (Manual) Monocytes % (Manual) Nucleated RBC % Abs Neuts (Manual) Abs Lymphs (Manual) Abs Monocytes (Manual) Platelet Estimate % Immature Plt Fraction Polychromasia Hypochromasia Anisocytosis Microcytosis Target Cells Ovalocytes Schistocytes VBG pH VBG pCO2 VBG pO2 VBG HCO3 O2 Delivery Device O2 Liters/Min FiO2 Sodium Potassium Chloride Carbon Dioxide Anion Gap BUN Creatinine Estim Creat Clear Calc Estimated GFR Glucose POC Capillary Glucose Hemoglobin A1c Lactic Acid Calcium Phosphorus Magnesium Iron TIBC % Saturation Ferritin Total Bilirubin AST ALT Alkaline Phosphatase Lactate Dehydrogenase Troponin I C-Reactive Protein Total Protein Albumin Lipase Cancelled Vitamin B12 Folate Beta-Hydroxybutyrate/Acetoacetate 1.32 H Procalcitonin 0.3 TSH (Reflex) Free T4 Total T3 Urine Color Yellow Urine Appearance Cloudy H Urine pH 5.5 Ur Specific [place] 1.037 H Urine Protein 1+ H Urine Glucose (UA) 3+ H Urine Ketones 3+ H Ur Blood (Man) Negative Urine Nitrate Positive H Urine Bilirubin Negative Urine Urobilinogen 0.2 Leukocyte Esterase Rfl Negative Urine RBC 0-2 Urine WBC 6-10 H Ur Squamous Epith Cells None seen Urine Bacteria 1+ H Urine Casts 0-2 POC Urine HCG, Qual Negative Nasal MRSA (PCR) Blood Type Antibody Screen Crossmatch 10/04/24 10/04/24 10/04/24 18:24 19:17 19:19 WBC RBC Hgb Hct MCV MCH MCHC RDW Plt Count MPV Immature Gran % (Auto) Neut % (Auto) Lymph % (Auto) [place] % (Auto) Eos % (Auto) Baso % (Auto) Lymph # (Auto) [place] # (Auto) Eos # (Auto) Baso # (Auto) Abs Immat Gran (auto) Absolute Neuts (auto) Absolute Nucleated RBC Total Counted Neutrophils % (Manual) Band Neutrophils % Lymphocytes % (Manual) Monocytes % (Manual) Nucleated RBC % Abs Neuts (Manual) Abs Lymphs (Manual) Abs Monocytes (Manual) Platelet Estimate % Immature Plt Fraction Polychromasia Hypochromasia Anisocytosis Microcytosis Target Cells Ovalocytes Schistocytes VBG pH 7.438 H* VBG pCO2 25.6 L* VBG pO2 48.6 H VBG HCO3 16.9 L O2 Delivery Device Not Reportable O2 Liters/Min Not Reportable FiO2 21 Sodium Potassium Chloride Carbon Dioxide Anion Gap BUN Creatinine Estim Creat Clear Calc Estimated GFR Glucose POC Capillary Glucose 313 H Hemoglobin A1c 11.7 H Lactic Acid Calcium Phosphorus Magnesium Iron TIBC % Saturation Ferritin Total Bilirubin AST ALT Alkaline Phosphatase Lactate Dehydrogenase Troponin I C-Reactive Protein Total Protein Albumin Lipase Vitamin B12 Folate Beta-Hydroxybutyrate/Acetoacetate Procalcitonin TSH (Reflex) Free T4 Total T3 Urine Color Urine Appearance Urine pH Ur Specific [place] Urine Protein Urine Glucose (UA) Urine Ketones Ur Blood (Man) Urine Nitrate Urine Bilirubin Urine Urobilinogen Leukocyte Esterase Rfl Urine RBC Urine WBC Ur Squamous Epith Cells Urine Bacteria Urine Casts POC Urine HCG, Qual Nasal MRSA (PCR) Blood Type O Positive Antibody Screen Negative Crossmatch See Detail 10/04/24 10/04/24 10/04/24 20:31 22:26 23:05 WBC RBC Hgb 7.1 L Hct 27.0 L MCV MCH MCHC RDW Plt Count MPV Immature Gran % (Auto) Neut % (Auto) Lymph % (Auto) [place] % (Auto) Eos % (Auto) Baso % (Auto) Lymph # (Auto) [place] # (Auto) Eos # (Auto) Baso # (Auto) Abs Immat Gran (auto) Absolute Neuts (auto) Absolute Nucleated RBC Total Counted Neutrophils % (Manual) Band Neutrophils % Lymphocytes % (Manual) Monocytes % (Manual) Nucleated RBC % Abs Neuts (Manual) Abs Lymphs (Manual) Abs Monocytes (Manual) Platelet Estimate % Immature Plt Fraction Polychromasia Hypochromasia Anisocytosis Microcytosis Target Cells Ovalocytes Schistocytes VBG pH VBG pCO2 VBG pO2 VBG HCO3 O2 Delivery Device O2 Liters/Min FiO2 Sodium 137 Potassium 2.7 L* Chloride 108 H Carbon Dioxide 14 L Anion Gap 15 H BUN 5 L Creatinine 0.40 L Estim Creat Clear Calc Not Reportable Estimated GFR > 60 Glucose 271 H POC Capillary Glucose 297 H 295 H Hemoglobin A1c Lactic Acid 2.8 H Calcium 8.2 L Phosphorus Magnesium Iron TIBC % Saturation Ferritin Total Bilirubin AST ALT Alkaline Phosphatase Lactate Dehydrogenase Troponin I C-Reactive Protein Total Protein Albumin Lipase Vitamin B12 Folate Beta-Hydroxybutyrate/Acetoacetate Procalcitonin TSH (Reflex) Free T4 Total T3 Urine Color Urine Appearance Urine pH Ur Specific [place] Urine Protein Urine Glucose (UA) Urine Ketones Ur Blood (Man) Urine Nitrate Urine Bilirubin Urine Urobilinogen Leukocyte Esterase Rfl Urine RBC Urine WBC Ur Squamous Epith Cells Urine Bacteria Urine Casts POC Urine HCG, Qual Nasal MRSA (PCR) Blood Type Antibody Screen Crossmatch 10/04/24 10/04/24 10/05/24 23:17 23:23 01:13 WBC RBC Hgb Hct MCV MCH MCHC RDW Plt Count MPV Immature Gran % (Auto) Neut % (Auto) Lymph % (Auto) [place] % (Auto) Eos % (Auto) Baso % (Auto) Lymph # (Auto) [place] # (Auto) Eos # (Auto) Baso # (Auto) Abs Immat Gran (auto) Absolute Neuts (auto) Absolute Nucleated RBC Total Counted Neutrophils % (Manual) Band Neutrophils % Lymphocytes % (Manual) Monocytes % (Manual) Nucleated RBC % Abs Neuts (Manual) Abs Lymphs (Manual) Abs Monocytes (Manual) Platelet Estimate % Immature Plt Fraction Polychromasia Hypochromasia Anisocytosis Microcytosis Target Cells Ovalocytes Schistocytes VBG pH VBG pCO2 VBG pO2 VBG HCO3 O2 Delivery Device O2 Liters/Min FiO2 Sodium Potassium Chloride Carbon Dioxide Anion Gap BUN Creatinine Estim Creat Clear Calc Estimated GFR Glucose POC Capillary Glucose 254 H 278 H Hemoglobin A1c Lactic Acid Calcium Phosphorus Magnesium Iron TIBC % Saturation Ferritin Total Bilirubin AST ALT Alkaline Phosphatase Lactate Dehydrogenase Troponin I C-Reactive Protein Total Protein Albumin Lipase Vitamin B12 Folate Beta-Hydroxybutyrate/Acetoacetate Procalcitonin TSH (Reflex) Free T4 Total T3 Urine Color Urine Appearance Urine pH Ur Specific [place] Urine Protein Urine Glucose (UA) Urine Ketones Ur Blood (Man) Urine Nitrate Urine Bilirubin Urine Urobilinogen Leukocyte Esterase Rfl Urine RBC Urine WBC Ur Squamous Epith Cells Urine Bacteria Urine Casts POC Urine HCG, Qual Nasal MRSA (PCR) Not detected Blood Type Antibody Screen Crossmatch 10/05/24 10/05/24 10/05/24 02:28 02:29 03:29 WBC RBC Hgb Hct MCV MCH MCHC RDW Plt Count MPV Immature Gran % (Auto) Neut % (Auto) Lymph % (Auto) [place] % (Auto) Eos % (Auto) Baso % (Auto) Lymph # (Auto) [place] # (Auto) Eos # (Auto) Baso # (Auto) Abs Immat Gran (auto) Absolute Neuts (auto) Absolute Nucleated RBC Total Counted Neutrophils % (Manual) Band Neutrophils % Lymphocytes % (Manual) Monocytes % (Manual) Nucleated RBC % Abs Neuts (Manual) Abs Lymphs (Manual) Abs Monocytes (Manual) Platelet Estimate % Immature Plt Fraction Polychromasia Hypochromasia Anisocytosis Microcytosis Target Cells Ovalocytes Schistocytes VBG pH VBG pCO2 VBG pO2 VBG HCO3 O2 Delivery Device O2 Liters/Min FiO2 Sodium 136 L Potassium 4.8 Chloride 110 H Carbon Dioxide 13 L Anion Gap 13 H BUN 3 L Creatinine 0.43 L Estim Creat Clear Calc Not Reportable Estimated GFR > 60 Glucose 277 H POC Capillary Glucose 295 H Hemoglobin A1c Lactic Acid Calcium 8.3 L Phosphorus Magnesium Iron 19 L TIBC 488 H % Saturation 4 L Ferritin 11.00 L Total Bilirubin AST ALT Alkaline Phosphatase Lactate Dehydrogenase 165 Troponin I C-Reactive Protein Total Protein Albumin Lipase Vitamin B12 767.0 Folate 11.1 Beta-Hydroxybutyrate/Acetoacetate Procalcitonin TSH (Reflex) 0.431 L Free T4 1.28 Total T3 0.63 L Urine Color Urine Appearance Urine pH Ur Specific [place] Urine Protein Urine Glucose (UA) Urine Ketones Ur Blood (Man) Urine Nitrate Urine Bilirubin Urine Urobilinogen Leukocyte Esterase Rfl Urine RBC Urine WBC Ur Squamous Epith Cells Urine Bacteria Urine Casts POC Urine HCG, Qual Nasal MRSA (PCR) Blood Type Antibody Screen Crossmatch 10/05/24 10/05/24 10/05/24 04:12 05:22 06:02 WBC RBC Hgb Hct MCV MCH MCHC RDW Plt Count MPV Immature Gran % (Auto) Neut % (Auto) Lymph % (Auto) [place] % (Auto) Eos % (Auto) Baso % (Auto) Lymph # (Auto) [place] # (Auto) Eos # (Auto) Baso # (Auto) Abs Immat Gran (auto) Absolute Neuts (auto) Absolute Nucleated RBC Total Counted Neutrophils % (Manual) Band Neutrophils % Lymphocytes % (Manual) Monocytes % (Manual) Nucleated RBC % Abs Neuts (Manual) Abs Lymphs (Manual) Abs Monocytes (Manual) Platelet Estimate % Immature Plt Fraction Polychromasia Hypochromasia Anisocytosis Microcytosis Target Cells Ovalocytes Schistocytes VBG pH VBG pCO2 VBG pO2 VBG HCO3 O2 Delivery Device O2 Liters/Min FiO2 Sodium Potassium Chloride Carbon Dioxide Anion Gap BUN Creatinine Estim Creat Clear Calc Estimated GFR Glucose POC Capillary Glucose 282 H 281 H 240 H Hemoglobin A1c Lactic Acid Calcium Phosphorus Magnesium Iron TIBC % Saturation Ferritin Total Bilirubin AST ALT Alkaline Phosphatase Lactate Dehydrogenase Troponin I C-Reactive Protein Total Protein Albumin Lipase Vitamin B12 Folate Beta-Hydroxybutyrate/Acetoacetate Procalcitonin TSH (Reflex) Free T4 Total T3 Urine Color Urine Appearance Urine pH Ur Specific [place] Urine Protein Urine Glucose (UA) Urine Ketones Ur Blood (Man) Urine Nitrate Urine Bilirubin Urine Urobilinogen Leukocyte Esterase Rfl Urine RBC Urine WBC Ur Squamous Epith Cells Urine Bacteria Urine Casts POC Urine HCG, Qual Nasal MRSA (PCR) Blood Type Antibody Screen Crossmatch 10/05/24 10/05/24 10/05/24 06:27 07:08 07:51 WBC 18.1 H RBC 4.09 L Hgb 6.7 L* Hct 24.7 L MCV 60.4 L MCH 16.4 L MCHC 27.1 L RDW 21.3 H Plt Count 324 MPV TNP Immature Gran % (Auto) 0.6 H Neut % (Auto) 91.6 H Lymph % (Auto) 4.1 L [place] % (Auto) 2.9 Eos % (Auto) 0.6 Baso % (Auto) 0.2 Lymph # (Auto) 0.74 L [place] # (Auto) 0.5 Eos # (Auto) 0.1 Baso # (Auto) 0.0 Abs Immat Gran (auto) 0.11 H Absolute Neuts (auto) 16.6 H Absolute Nucleated RBC 0.000 Total Counted Neutrophils % (Manual) Band Neutrophils % Not Reportable Lymphocytes % (Manual) Monocytes % (Manual) Nucleated RBC % 0.0 Abs Neuts (Manual) Abs Lymphs (Manual) Abs Monocytes (Manual) Platelet Estimate Adequate % Immature Plt Fraction 5.2 Polychromasia Hypochromasia 2+ Anisocytosis 2+ Microcytosis Target Cells 1+ Ovalocytes 1+ Schistocytes None seen VBG pH VBG pCO2 VBG pO2 VBG HCO3 O2 Delivery Device O2 Liters/Min FiO2 Sodium 137 Potassium 3.8 Chloride 112 H Carbon Dioxide 15 L Anion Gap 10 BUN 3 L Creatinine 0.42 L Estim Creat Clear Calc Not Reportable Estimated GFR > 60 Glucose 245 H POC Capillary Glucose 271 H 236 H Hemoglobin A1c Lactic Acid 2.2 H Calcium 8.2 L Phosphorus Magnesium Iron TIBC % Saturation Ferritin Total Bilirubin AST ALT Alkaline Phosphatase Lactate Dehydrogenase Troponin I C-Reactive Protein Total Protein Albumin Lipase Vitamin B12 Folate Beta-Hydroxybutyrate/Acetoacetate Procalcitonin TSH (Reflex) Free T4 Total T3 Urine Color Urine Appearance Urine pH Ur Specific [place] Urine Protein Urine Glucose (UA) Urine Ketones Ur Blood (Man) Urine Nitrate Urine Bilirubin Urine Urobilinogen Leukocyte Esterase Rfl Urine RBC Urine WBC Ur Squamous Epith Cells Urine Bacteria Urine Casts POC Urine HCG, Qual Nasal MRSA (PCR) Blood Type Antibody Screen Crossmatch 10/05/24 10/05/24 10/05/24 08:47 09:15 10:06 WBC RBC Hgb Hct MCV MCH MCHC RDW Plt Count MPV Immature Gran % (Auto) Neut % (Auto) Lymph % (Auto) [place] % (Auto) Eos % (Auto) Baso % (Auto) Lymph # (Auto) [place] # (Auto) Eos # (Auto) Baso # (Auto) Abs Immat Gran (auto) Absolute Neuts (auto) Absolute Nucleated RBC Total Counted Neutrophils % (Manual) Band Neutrophils % Lymphocytes % (Manual) Monocytes % (Manual) Nucleated RBC % Abs Neuts (Manual) Abs Lymphs (Manual) Abs Monocytes (Manual) Platelet Estimate % Immature Plt Fraction Polychromasia Hypochromasia Anisocytosis Microcytosis Target Cells Ovalocytes Schistocytes VBG pH VBG pCO2 VBG pO2 VBG HCO3 O2 Delivery Device O2 Liters/Min FiO2 Sodium 137 Potassium 3.8 Chloride 112 H Carbon Dioxide 13 L Anion Gap 12 BUN 3 L Creatinine 0.39 L Estim Creat Clear Calc Not Reportable Estimated GFR > 60 Glucose 312 H POC Capillary Glucose 331 H Hemoglobin A1c Lactic Acid 2.8 H Calcium 8.3 L Phosphorus Magnesium Iron TIBC % Saturation Ferritin Total Bilirubin AST ALT Alkaline Phosphatase Lactate Dehydrogenase Troponin I C-Reactive Protein Total Protein Albumin Lipase Vitamin B12 Folate Beta-Hydroxybutyrate/Acetoacetate Procalcitonin TSH (Reflex) Free T4 Total T3 Urine Color Urine Appearance Urine pH Ur Specific [place] Urine Protein Urine Glucose (UA) Urine Ketones Ur Blood (Man) Urine Nitrate Urine Bilirubin Urine Urobilinogen Leukocyte Esterase Rfl Urine RBC Urine WBC Ur Squamous Epith Cells Urine Bacteria Urine Casts POC Urine HCG, Qual Nasal MRSA (PCR) Blood Type Antibody Screen Crossmatch 10/05/24 10/05/24 10/05/24 10:07 11:11 11:27 WBC RBC Hgb Hct MCV MCH MCHC RDW Plt Count MPV Immature Gran % (Auto) Neut % (Auto) Lymph % (Auto) [place] % (Auto) Eos % (Auto) Baso % (Auto) Lymph # (Auto) [place] # (Auto) Eos # (Auto) Baso # (Auto) Abs Immat Gran (auto) Absolute Neuts (auto) Absolute Nucleated RBC Total Counted Neutrophils % (Manual) Band Neutrophils % Lymphocytes % (Manual) Monocytes % (Manual) Nucleated RBC % Abs Neuts (Manual) Abs Lymphs (Manual) Abs Monocytes (Manual) Platelet Estimate % Immature Plt Fraction Polychromasia Hypochromasia Anisocytosis Microcytosis Target Cells Ovalocytes Schistocytes VBG pH VBG pCO2 VBG pO2 VBG HCO3 O2 Delivery Device O2 Liters/Min FiO2 Sodium Potassium Chloride Carbon Dioxide Anion Gap BUN Creatinine Estim Creat Clear Calc Estimated GFR Glucose POC Capillary Glucose 306 H 280 H Hemoglobin A1c Lactic Acid Calcium Phosphorus Magnesium Iron TIBC % Saturation Ferritin Total Bilirubin AST ALT Alkaline Phosphatase Lactate Dehydrogenase Troponin I Cancelled C-Reactive Protein Total Protein Albumin Lipase Vitamin B12 Folate Beta-Hydroxybutyrate/Acetoacetate Procalcitonin TSH (Reflex) Free T4 Total T3 Urine Color Urine Appearance Urine pH Ur Specific [place] Urine Protein Urine Glucose (UA) Urine Ketones Ur Blood (Man) Urine Nitrate Urine Bilirubin Urine Urobilinogen Leukocyte Esterase Rfl Urine RBC Urine WBC Ur Squamous Epith Cells Urine Bacteria Urine Casts POC Urine HCG, Qual Nasal MRSA (PCR) Blood Type Antibody Screen Crossmatch Quality VTE Prophylaxis VTE prophylaxis: mechanical ordered (SCDs)
[2024-10-05 11:51] LABS: Anion Gap 12 mmol/L (4-12); Blood Urea Nitrogen 3 mg/dL (7-17); Calcium 8.2 mg/dL (8.4-10.2); Carbon Dioxide 19 mmol/L (22-30); Chloride 108 mmol/L (98-107); Estimated Glomerular Filt Rate > 60; Glucose 304 mg/dL (65-110); Potassium 3.7 mmol/L (3.4-5.0); Sodium 139 mmol/L (137-145)
[2024-10-05 12:01] LABS: NT Pro B Type Natriuretic Pept 1050 pg/mL (19.9-100); Troponin I < 0.012 ng/mL (0.000-0.034)
[2024-10-05 12:14] LABS: Glucose Point of Care 315 mg/dl (65-105)
[2024-10-05] MEDS: INSULIN HUMAN REGULAR (*BKC) 100 UNITS in SODIUM CHLORIDE 0.9% IV 99 ML 9.5 UNITS IV CONT (13:14)
[2024-10-05 13:21] LABS: Glucose Point of Care 312 mg/dl (65-105)
[2024-10-05] MEDS: MORPHINE SULFATE (*CRX) 2 MG/ML INJ IV PUSH (13:41)
[2024-10-05 13:44] LABS: Alveolar/Arterial O2 Gradient 132.4 mmHg; Base Excess ABG -2.3 mEq/l (+/-2.0); Fractional Inspired Oxygen 36 %; Oxygen Content ABG 11.3 %vol (16.0-22.0); Oxygen Saturation ABG 97.3 % (95.0-100.0); Oxyhemoglobin 96.8 % THb (90.0-100.0); PCO2 ABG 30.3 mmHg (35.0-45.0); PO2 ABG 89.1 mmHg (80.0-100.0); PO2 FiO2 Ratio Arterial Blood 2.47 %; Total Hemoglobin 8.2 g/dL (12.0-18.0); pH ABG 7.459 (7.350-7.450)
[2024-10-05] MEDS: SODIUM CHLORIDE 0.9% IV 250 ML 30 ML IV CONT (13:44)
[2024-10-05 13:46] LABS: CPAP 10 cmH2O; Device CPAP; Modified Allen's Test Pass; Site Drawn RIGHT RADIAL
[2024-10-05 14:00] LABS: Glucose Point of Care 259 mg/dl (65-105)
[2024-10-05 14:19] LABS: Troponin I < 0.012 ng/mL (0.000-0.034)
[2024-10-05 15:07] LABS: Glucose Point of Care 180 mg/dl (65-105)
[2024-10-05 16:10] LABS: Glucose Point of Care 159 mg/dl (65-105)
[2024-10-05 17:04] LABS: Hematocrit 29.3 % (37.0-47.0); Hemoglobin 7.9 g/dL (12.0-15.0); Immature Platelet Fraction Pct 7.1 % (0.9-11.2); Platelet Count Result 293 k/mm3 (150-375); Red Blood Count 4.65 M/mm3 (4.2-5.4); Red Cell Distribution Width 23.8 % (11.5-14.5); White Blood Count 17.6 K/mm3 (4.5-10.0)
[2024-10-05 17:09] LABS: Glucose Point of Care 176 mg/dl (65-105)
[2024-10-05 17:15] LABS: Anion Gap 8 mmol/L (4-12); Blood Urea Nitrogen 4 mg/dL (7-17); Calcium 8.3 mg/dL (8.4-10.2); Carbon Dioxide 21 mmol/L (22-30); Chloride 106 mmol/L (98-107); Estimated Glomerular Filt Rate > 60; Glucose 167 mg/dL (65-110); Potassium 3.2 mmol/L (3.4-5.0); Sodium 135 mmol/L (137-145)
[2024-10-05 17:33] LABS: Troponin I < 0.012 ng/mL (0.000-0.034)
[2024-10-05] MEDS: POTASSIUM BICARBONATE 25 MEQ TABEF 50 MEQ PO (18:28)
[2024-10-05] MEDS: INSULIN ASPART (*BKC) 100 UNITS/ML SUB-Q (21:03)
[2024-10-05] MEDS: CENTRAL LINE FLUSH 10 ML IV PUSH (21:04)
[2024-10-05 21:23] LABS: IFOB Positive Control Positive; Immunochemical Fecal Occult Bl Negative (N)
[2024-10-05 21:36] LABS: Glucose Point of Care 234 mg/dl (65-105)
[2024-10-06] VITALS (14 sets, daily range): BP systolic 109–146; BP diastolic 54–85; PULSE 88–105; RESP 16–35; TEMP 36.9–37.7; O2SAT 95–100; BMI 42.2
--- NOTE | 2024-10-06 | ECHO_ITS ---
Patient Info Name: Harini Cid Age: 54 years : 1970 Gender: Female Ht: 60 in Wt: 183 lbs BSA: 1.92 m2 HR: 100 bpm BP: 141 / 81 mmHg Heart Rhythm: Sinus Rhythm Technical Quality: Good Exam Date: 10/06/2024 7:02 AM Patient Status: I Admit Date: 10/04/2024 Exam Type: CA echo doppler color flow Complete two-dimensional, color flow and Doppler transthoracic echocardiogram is performed. Staff Referring Physician: Tacho Andrade MD Coding Analyst: Mariel Dai Attending Provider: Merly Duckworth DO Summary 1. Complete two-dimensional, color flow and Doppler transthoracic echocardiogram is performed. 2. There is normal biventricular size and systolic function. 3. There are no significant valvular abnormalities. Left Ventricle The left ventricle is normal in size and systolic function. The left ventricular ejection fraction is visually estimated to be 65-70%. Right Ventricle The right ventricle is normal in size and systolic function. Left Atria The left atrium is normal size. Right Atria The right atrium is normal size. Atrial Septum The atrial septum is visually intact. Aortic Valve The aortic valve is trileaflet and opens well. There is no aortic regurgitation. Pulmonic Valve The pulmonic valve is not well visualized. There is no color Doppler evidence of pulmonic valve regurgitation. Mitral Valve The mitral valve leaflets are thickened. There is no mitral stenosis. There is no mitral regurgitation. Tricuspid Valve The tricuspid valve is grossly normal. There is trace tricuspid regurgitation. Pericardium/Pleural Pericardium is normal in appearance with no evidence for significant pericardial effusion. Inferior Vena Cava Normal inferior vena cava with <50% collapse upon inspiration consistent with elevated right atrial pressure, 8 mmHg. Aorta The aortic root at the level of the sinus of Valsalva measures 2.4 cm in diameter. Left Ventricular Outflow Tract Name Value Normal LVOT 2D LVOT Diameter 2.0 cm LVOT Doppler LVOT Peak Velocity 145 cm/s LVOT Peak Gradient 8 mmHg LVOT Mean Gradient 4 mmHg LVOT VTI 24 cm LVOT VTI/AV VTI Ratio 0.8 LVOT Stroke Volume 72 ml LVOT CO 7.1 l/min LVOT CI 3.7 l/min/m2 Pulmonic Valve Name Value Normal RVOT Doppler RVOT Peak Velocity 73 cm/s RVOT Peak Gradient 2 mmHg PV Doppler PV Peak Velocity 126 cm/s PV Peak Gradient 6 mmHg Mitral Valve Name Value Normal MV Diastolic Function MV E Peak Velocity 89 cm/s MV A Peak Velocity 97 cm/s MV E/A 0.9 MV Decel Time (PW) 129 ms MV Annular TDI MV E/e' (Septal) 10.1 MV E/e' (Lateral) 7.8 MV E/e' (Average) 8.9 Tricuspid Valve Name Value Normal TV Regurgitation Doppler TR Peak Velocity 276 cm/s TR Peak Gradient 28 mmHg Estimated PAP/RSVP RA Pressure 8 mmHg <=5 PA Systolic Pressure 38 mmHg <36 RV Systolic Pressure 38 mmHg <36 TV Annular TDI TV Lateral Domonique s' Velocity 16.9 cm/s >=9.5 Aorta Name Value Normal Ascending Aorta Ao Root Diameter (MM) 2.6 cm Ao Root Diam Index (MM) 1.4 cm/m2 Aortic Valve Name Value Normal AV Doppler AV Peak Velocity 202 cm/s AV Peak Gradient 16 mmHg AV Mean Gradient 9 mmHg AV VTI 30 cm AV Area (Cont Eq VTI) 2.4 cm2 >=3.0 AV Area (Cont Eq Eron) 2.2 cm2 AV DI (Eron) 0.72 AV Regurgitation 2D LVOT Area 3.0 cm2 Ventricles Name Value Normal LV Dimensions 2D/MM IVS Diastolic Thickness (2D) 1.0 cm 0.6-1.0 LVID Diastole (2D) 4.2 cm 3.8-5.2 LVIW Diastolic Thickness (2D) 0.9 cm 0.6-0.9 LVID Systole (2D) 2.4 cm 2.2-3.5 LVOT Diameter 2.0 cm LV Mass (2D Cubed) 128.09 g 67.00-162.00 LV Mass Index (2D Cubed) 67 g/m2 43-95 Relative Wall Thickness (2D) 0.45 <=0.42 LV Fractional Shortening/Ejection Fraction 2D/MM LV Fractional Shortening (2D) 44 % 27-45 LV EF (2D Teichholz) 75 % LV Diastolic Volume (4C MOD) 64 ml LV EF (4C MOD) 67 % LV Diastolic Volume (2C MOD) 67 ml LV EF (2C MOD) 69 % LV Diastolic Volume (BP MOD) 67 ml 46-106 LV Diastolic Volume Index (BP MOD) 35 ml/m2 29-61 LV Systolic Volume (BP MOD) 21 ml 14-42 LV Systolic Volume Index (BP MOD) 11 ml/m2 8-24 LV EF (BP MOD) 69 % 54-74 LV Diastolic Length (4C) 7.9 cm LV Systolic Length (4C) 6.0 cm LV Stroke Volume (4C MOD) 43 ml Atria Name Value Normal LA Dimensions LA Dimension (MM) 5.0 cm 2.7-3.8 LA Volume (4C A-L) 63 ml LA Volume (BP A-L) 66 ml RA Dimensions RA Area (4C) 15.5 cm2 <=18.0 Report Signatures
[2024-10-06 00:11] LABS: Glucose Point of Care 181 mg/dl (65-105)
[2024-10-06] MEDS: INSULIN ASPART (*BKC) 100 UNITS/ML SUB-Q ×4 (03:28→21:06)
[2024-10-06 03:29] LABS: Glucose Point of Care 217 mg/dl (65-105)
[2024-10-06] MEDS: LEVOTHYROXINE SODIUM 100 MCG TABLET PO (06:38)
[2024-10-06] MEDS: IRON SUCROSE COMPLEX 400 MG, IRON SUCROSE COMPLEX 100 MG in SODIUM CHLORIDE 0.9% IV 250 ML 78.57 MG IVPB (06:40)
[2024-10-06] MEDS: CENTRAL LINE FLUSH 10 ML IV PUSH ×3 (06:40→21:07)
[2024-10-06] MEDS: CENTRAL LINE FLUSH 20 ML IV PUSH (06:40)
[2024-10-06 07:05] LABS: Hematocrit 27.3 % (37.0-47.0); Hemoglobin 7.4 g/dL (12.0-15.0); Immature Platelet Fraction Pct 8.1 % (0.9-11.2); Mean Corpuscular HGB Conc 27.1 g/dl (32-36); Mean Corpuscular Volume 62.6 fl (80-100); Platelet Count Result 253 k/mm3 (150-375); Red Blood Count 4.36 M/mm3 (4.2-5.4); Red Cell Distribution Width 23.3 % (11.5-14.5); White Blood Count 14.3 K/mm3 (4.5-10.0)
[2024-10-06 07:22] LABS: Alanine Aminotransferase 35 U/L (6-35); Albumin Level 3.2 g/dL (3.5-5.1); Alkaline Phosphatase 91 U/L (38-126); Anion Gap 7 mmol/L (4-12); Aspartate Amino Transferase 39 U/L (14-36); Bilirubin,Total 0.6 mg/dL (0.2-1.3); Blood Urea Nitrogen 5 mg/dL (7-17); Calcium 8.2 mg/dL (8.4-10.2); Carbon Dioxide 22 mmol/L (22-30); Chloride 105 mmol/L (98-107); Estimated Glomerular Filt Rate > 60; Glucose 212 mg/dL (65-110); Phosphorus 1.5 mg/dL (2.5-4.5); Potassium 3.8 mmol/L (3.4-5.0); Sodium 134 mmol/L (137-145); Total Protein 6.5 g/dL (6.3-8.2)
[2024-10-06 07:51] LABS: Glucose Point of Care 222 mg/dl (65-105)
[2024-10-06] MEDS: FUROSEMIDE INJ 40 MG/4 ML VIAL IV PUSH (08:00)
[2024-10-06] MEDS: CEFEPIME 1 GM/NS 50 ML 1 GM/50 ML BAG IVPB (08:00)
[2024-10-06] MEDS: INSULIN GLARGINE (*BKC) 100 UNITS/ML 22 UNITS SUB-Q (08:01)
[2024-10-06] MEDS: ACETAMINOPHEN 325 MG TABLET 650 MG PO ×2 (09:00→21:13)
[2024-10-06] MEDS: POTASSIUM PHOS,M-BASIC-D-BASIC 20 MMOL in SODIUM CHLORIDE 0.9% IV 250 ML 64.17 MMOL IVPB (09:05)
[2024-10-06] MEDS: ATORVASTATIN 40 MG TABLET PO (09:06)
[2024-10-06] MEDS: lisinopriL 20 MG TABLET PO (09:06)
[2024-10-06] MEDS: SODIUM BICARBONATE TAB 650 MG TABLET PO (09:06)
--- NOTE | 2024-10-06 09:37 | WPDINTPN ---
Progress Note: A&P Assessment and Plan (1) DKA, type 2, not at goal: Code(s): E11.10 - Type 2 diabetes mellitus with ketoacidosis without coma Status: Acute Assessment and Plan: Patient presented with DKA and looks like has uncontrolled diabetes mellitus Clinically improved anion gap has closed and patient has been transition to subcutaneous insulin Continue consistent carbohydrate diet Consult dietitian and community nutrition educator Hold Invokana metformin (2) Sepsis: Qualifiers: Sepsis acute organ dysfunction status: without acute organ dysfunction Sepsis type: sepsis due to unspecified organism Qualified Code(s): A41.9 - Sepsis, unspecified organism Code(s): A41.9 - Sepsis, unspecified organism Status: Acute Assessment and Plan: Sepsis secondary to UTI. Received IV fluid bolus and infusion. Later developed pulmonary edema hence IV fluids. Patient was given diuretics Patient has not required any vasopressors but lactate is slightly slightly elevated which could be secondary to metformin Procalcitonin level was low. UA is abnormal Blood cultures are growing Gram-negative rods Continue cefepime. Off vancomycin. (3) UTI (urinary tract infection): Code(s): N39.0 - Urinary tract infection, site not specified Status: Acute Assessment and Plan: See above CT scan showed hypodensity in the right kidney upper pole which could be a mass or a focal nephritis I will check of ultrasound to further evaluate sitting patient has bacteremia (4) Hypothyroidism: Code(s): E03.9 - Hypothyroidism, unspecified Status: Acute Assessment and Plan: Continue Synthroid (5) Iron deficiency anemia: Qualifiers: Iron deficiency anemia type: chronic blood loss Qualified Code(s): D50.0 - Iron deficiency anemia secondary to blood loss (chronic) Code(s): D50.9 - Iron deficiency anemia, unspecified Status: Acute Assessment and Plan: Patient has history of iron deficiency anemia. She states she had a colonoscopy last year which was negative. It appears the patient has history of menorrhagia is leading to chronic anemia. Her hemoglobin dropped further likely secondary to hemodilution. She is getting iron infusion and received 1 unit of PRBC. Monitor and transfuse additionally if needed (6) Sore throat: Code(s): J02.9 - Acute pharyngitis, unspecified Status: Acute Assessment and Plan: Unable to start anything by exam. In light of bacteremia will ordered CT scan soft tissue neck to rule out any abscess or collection. Will also check CT chest along with it Chloraseptic spray and lozenges p.r.n. Plan DVT prophylaxis -SCDs Stress ulcer prophylaxis -PPI Nutrition -diet ordered Code Status - Full Code I updated patient's daughter and other family was at bedside. Incentive spirometry, PT OT, up in chair Transfer out of ICU today Subjective Date/time seen: 10/06/24 Overnight events reviewed. Yesterday patient developed respiratory distress and required BiPAP a few hours. Patient was given Lasix for pulmonary edema. Later BiPAP was weaned off and she was placed back on nasal cannula and this morning she is on room air. She complains of sore throat specially in the left side. Denies any trouble swallowing or with speech. Her blood cultures are growing Gram-negative rods. Echo is being done at this time. She denies any other complaints. She states her breathing is better. Patient denies fever, chest pain, shortness of breath, cough, nausea vomiting, abdominal pain,, diarrhea, headache or constipation. All other systems were reviewed and were negative. She is off of all infusions. Urine output is good. Review of Systems Review of Systems: All systems reviewed & are unremarkable except as noted in HPI and below (HPI) Exam Narrative: General: Pt is alert awake and in NAD Lungs/Chest: Trachea central Clear BS B/L, bibasilar crackle, no tachypnea or use of accessory muscles old respiratory distress Cardiac: RRR. Normal S1 S2. No murmurs Circulation: Pedal pulses are intact and symmetrical. Abdomen: Normal bowel sounds. Obese. Soft. NT. ND. Extremities: No clubbing, cyanosis or edema. Warm : [place] in place Neurologic: Follows commands. Moves all 4 extremities PERRL AO x3 Skin: No Rash HEENT: But patient is obese with short neck and unable to examine posterior pharynx. On palpation of the left side of the neck I do not feel any mass, redness or erythema Objective Data Vital Signs Vital Signs: Vital Signs - 24 hr 10/05/24 10:00 10/05/24 10:10/05/24 11:15 Temperature 37.2 C Pulse Rate 94 89 Respiratory Rate 29 H Blood Pressure 120/67 Pulse Oximetry 98 97 Oxygen Delivery Nasal Cannula Oxygen Flow Rate 5 Fraction of Inspired Oxygen 40 10/05/24 11:23 10/05/24 12:00 10/05/24 12:00 Temperature 38.9 C H Pulse Rate 118 H 111 H Respiratory Rate 50 H 38 H Blood Pressure 117/77 Pulse Oximetry 98 99 Oxygen Delivery CPAP CPAP Oxygen Flow Rate Fraction of Inspired Oxygen 10/05/24 12:00 10/05/24 13:01 10/05/24 13:17 Temperature 37.2 C 37.0 C Pulse Rate 111 H 105 H 102 H Respiratory Rate 38 H 26 H Blood Pressure 124/77 105/70 Pulse Oximetry 100 99 Oxygen Delivery Oxygen Flow Rate Fraction of Inspired Oxygen 10/05/24 13:28 10/05/24 14:00 10/05/24 14:00 Temperature 38.2 C H Pulse Rate 98 100 102 H Respiratory Rate 38 H 33 H Blood Pressure 112/73 Pulse Oximetry 100 99 Oxygen Delivery CPAP Oxygen Flow Rate Fraction of Inspired Oxygen 10/05/24 14:17 10/05/24 15:17 10/05/24 16:00 Temperature 37.6 C H 38.3 C H 38.6 C H Pulse Rate 96 101 H 100 Respiratory Rate 27 H 42 H 37 H Blood Pressure 122/78 123/77 125/78 Pulse Oximetry 99 95 95 Oxygen Delivery Oxygen Flow Rate Fraction of Inspired Oxygen 10/05/24 16:00 10/05/24 16:00 10/05/24 16:17 Temperature 38.6 C H Pulse Rate 104 H 100 Respiratory Rate 37 H Blood Pressure 125/78 Pulse Oximetry 97 95 Oxygen Delivery Nasal Cannula Oxygen Flow Rate 2 Fraction of Inspired Oxygen 10/05/24 16:20 10/05/24 16:27 10/05/24 18:00 Temperature 37.6 C H Pulse Rate 100 102 H 106 H Respiratory Rate 32 H 26 H Blood Pressure 134/77 Pulse Oximetry 95 97 Oxygen Delivery Nasal Cannula Oxygen Flow Rate 2 Fraction of Inspired Oxygen 28 10/05/24 18:00 10/05/24 18:40 10/05/24 19:40 Temperature 38.4 C H 39.3 C H 38.0 C H Pulse Rate 106 H Respiratory Rate 30 H Blood Pressure 122/66 Pulse Oximetry 96 Oxygen Delivery Oxygen Flow Rate Fraction of Inspired Oxygen 10/05/24 20:00 10/05/24 20:00 10/05/24 20:00 Temperature 38.0 C H Pulse Rate 110 H 111 H Respiratory Rate 41 H Blood Pressure 124/78 Pulse Oximetry 95 95 Oxygen Delivery Nasal Cannula Oxygen Flow Rate 2 Fraction of Inspired Oxygen 10/05/24 22:00 10/05/24 22:00 10/05/24 22:20 Temperature Pulse Rate 96 96 111 H Respiratory Rate 23 H Blood Pressure 122/68 Pulse Oximetry 99 96 Oxygen Delivery Nasal Cannula Oxygen Flow Rate 2 Fraction of Inspired Oxygen 10/06/24 00:00 10/06/24 00:00 10/06/24 00:00 Temperature 36.9 C Pulse Rate 94 98 Respiratory Rate 24 H Blood Pressure 120/69 Pulse Oximetry 98 98 Oxygen Delivery Nasal Cannula Oxygen Flow Rate 2 Fraction of Inspired Oxygen 10/06/24 02:00 10/06/24 02:00 10/06/24 04:00 Temperature Pulse Rate 94 97 Respiratory Rate 27 H Blood Pressure 138/85 Pulse Oximetry 100 98 Oxygen Delivery Nasal Cannula Oxygen Flow Rate 2 Fraction of Inspired Oxygen 10/06/24 04:00 10/06/24 04:00 10/06/24 06:00 Temperature 37.3 C Pulse Rate 97 99 97 Respiratory Rate 24 H Blood Pressure 146/80 H Pulse Oximetry 98 Oxygen Delivery Oxygen Flow Rate Fraction of Inspired Oxygen 10/06/24 06:00 10/06/24 08:00 10/06/24 08:00 Temperature Pulse Rate 100 100 100 Respiratory Rate 26 H 35 H Blood Pressure 141/81 H Pulse Oximetry 96 96 Oxygen Delivery Room Air Oxygen Flow Rate Fraction of Inspired Oxygen 10/06/24 08:00 Temperature 37.7 C H Pulse Rate 105 H Respiratory Rate 35 H Blood Pressure 109/61 Pulse Oximetry 100 Oxygen Delivery Oxygen Flow Rate Fraction of Inspired Oxygen Intake/Output Intake/Output: Intake & Output 10/03/24 10/04/24 10/05/24 10/06/24 23:59 23:59 23:59 23:59 Intake Total 2569.2 3237.1 350 Output Total 2800 700 Balance 2569.2 437.1 -350 Meds/Results Medications: Active Medications Generic Name Dose Route Start Last Admin Trade Name Freq PRN Reason Stop Dose Admin Acetaminophen 650 mg 10/04/24 21:34 10/06/24 09:00 Acetaminophen 325 Mg Tablet PO 650 mg Q4H PRN Administration Mild Pain (1-3) or Fever Atorvastatin Calcium 40 mg 10/05/24 09:00 10/06/24 09:06 Atorvastatin 40 Mg Tablet PO 40 mg DAILY FLACO Administration Benzocaine 1 lozenge 10/06/24 07:33 Benzocaine/Menthol (*Bkc) 18 Ea Lozenge PO PRN PRN Sore Throat Dextrose 12.5 gm 10/04/24 19:05 Dextrose 50% 25 Gm/50 Ml Syringe IV PUSH PRN PRN Hypoglycemia Protocol Glucagon 1 mg 10/04/24 19:05 Glucagon For Inj 1 Mg Vial IM PRN PRN Hypoglycemia Protocol Glucose 15 gm 10/04/24 19:05 Glucose Oral Gel 15 Gm Of Glucse In 37.5 Gm Tube PO PRN PRN Hypoglycemia Protocol Dextrose 1,000 mls @ 100 mls/hr 10/04/24 19:05 Dextrose 5% 1,000 Ml IVPB PRN PRN Hypoglycemia Protocol Cefepime HCl 1 gm in 50 mls @ 100 mls/hr 10/05/24 08:00 10/06/24 08:30 Maxipime 1 Gm/Ns 50 Ml IVPB Infused Q12H FLACO Infusion Potassium Phosphate 20 mmol/ 256.6667 mls @ 64.167 mls/hr 10/06/24 07:45 10/06/24 09:05 Sodium Chloride IVPB 10/06/24 11:44 64.17 mls/hr ONCE ONE Administration Insulin Aspart 3 - 6 units 10/05/24 17:00 10/06/24 08:00 Insulin Aspart (*Bkc) 100 Units/Ml SUB-Q 3 units Q4HR FLACO Administration Protocol Insulin Glargine 22 units 10/05/24 09:00 10/06/24 08:01 Insulin Glargine (*Bkc) 100 Units/Ml SUB-Q 22 units QAM FLACO Administration Levothyroxine Sodium 100 mcg 10/05/24 06:30 10/06/24 06:38 Levothyroxine Sodium 100 Mcg Tablet PO 100 mcg DAILY@0630 FLACO Administration Lisinopril 20 mg 10/05/24 09:00 10/06/24 09:06 Lisinopril 20 Mg Tablet PO 20 mg QAM FLACO Administration Morphine Sulfate 2 mg 10/05/24 11:02 10/05/24 13:41 Morphine Sulfate (*Crx) 2 Mg/Ml Inj IV PUSH 2 mg Q2H PRN Administration Pain Rated 7-10 Nitroglycerin 0.4 mg 10/05/24 10:59 10/05/24 11:35 Nitroglycerin Sl 0.4 Mg Tablet SUBLINGUAL 0.4 mg Q5MIN PRN Administration Chest Pain Ondansetron HCl 4 mg 10/04/24 21:34 10/05/24 03:10 Ondansetron Inj 4 Mg/2 Ml Vial IV PUSH 4 mg Q4H PRN Administration Nausea Perflutren Lipid Microsphere 0 ml 10/05/24 10:54 Perflutren Lipid Microspheres 1.5 Ml Vial Diluted To 10 Ml Total Volume IV PUSH 10/08/24 10:54 ONCE PRN adequate visualization Protocol Phenol 1 spray 10/06/24 07:33 Phenol/Sod Pheno [place] (*Bkc) MUCOUS MEM PRN PRN Sore Throat Sodium Bicarbonate 650 mg 10/05/24 11:00 10/06/24 09:06 Sodium Bicarbonate Tab 650 Mg Tablet PO 10/06/24 12:00 650 mg BID FLACO Administration Sodium Chloride 10 ml 10/05/24 22:00 10/06/24 06:40 Central Line Flush IV PUSH 10 ml Q8HR FLACO Administration Sodium Chloride 10 ml 10/05/24 15:38 Central Line Flush IV PUSH PRN PRN with TPN bag changes Sodium Chloride 20 ml 10/05/24 15:38 10/06/24 06:40 Central Line Flush IV PUSH 20 ml PRN PRN Administration after blood draws Radiology Results: ITS Impressions Abdomen/Pelvis CT 10/04/24 20:16 IMPRESSION: 1. No evidence of appendicitis, diverticulitis or intestinal obstruction. No kidney stones. 2. Hypodensity in the right kidney upper pole which may indicate a mass and less likely focal nephritis. Further evaluation and follow-up advised. 3. Tiny left adrenal nodule. No follow-up is clinically warranted. 4. Fibroid uterus. Ultrasound evaluation advised. 5. Hepatomegaly. Chest X-Ray 10/05/24 11:24 Impression: Minimal congestive change and probable minimal bibasilar pulmonary edema. Right-sided PICC line in place. Labs Labs: Laboratory Results - last 24 hr 10/04/24 10/05/24 10/05/24 19:19 02:29 10:06 WBC RBC Hgb Hct MCV MCH MCHC RDW Plt Count MPV % Immature Plt Fraction Puncture Site ABG pH ABG pCO2 ABG pO2 ABG PO2/FiO2 Ratio ABG HCO3 ABG O2 Saturation ABG O2 Content ABG Base Excess A-a Gradient Oxyhemoglobin Total Hemoglobin O2 Delivery Device O2 Liters/Min FiO2 CPAP Sodium 137 Potassium 3.8 Chloride 112 H Carbon Dioxide 13 L Anion Gap 12 BUN 3 L Creatinine 0.39 L Estim Creat Clear Calc Not Reportable Estimated GFR > 60 Glucose 312 H POC Capillary Glucose Calcium 8.3 L Phosphorus Magnesium Total Bilirubin AST ALT Alkaline Phosphatase Troponin I NT-Pro-B Natriuret Pep Total Protein Albumin Total T3 0.63 L Stl Occult Blood (IFOB) Blood Type O Positive Antibody Screen Negative Crossmatch See Detail 10/05/24 10/05/24 10/05/24 10:07 11:11 11:27 WBC RBC Hgb Hct MCV MCH MCHC RDW Plt Count MPV % Immature Plt Fraction Puncture Site ABG pH ABG pCO2 ABG pO2 ABG PO2/FiO2 Ratio ABG HCO3 ABG O2 Saturation ABG O2 Content ABG Base Excess A-a Gradient Oxyhemoglobin Total Hemoglobin O2 Delivery Device O2 Liters/Min FiO2 CPAP Sodium 139 Potassium 3.7 Chloride 108 H Carbon Dioxide 19 L Anion Gap 12 BUN 3 L Creatinine 0.45 L Estim Creat Clear Calc Not Reportable Estimated GFR > 60 Glucose 304 H POC Capillary Glucose 306 H 280 H Calcium 8.2 L Phosphorus Magnesium Total Bilirubin AST ALT Alkaline Phosphatase Troponin I < 0.012 NT-Pro-B Natriuret Pep Total Protein Albumin Total T3 Stl Occult Blood (IFOB) Blood Type Antibody Screen Crossmatch 10/05/24 10/05/24 10/05/24 11:27 12:08 13:11 WBC RBC Hgb Hct MCV MCH MCHC RDW Plt Count MPV % Immature Plt Fraction Puncture Site ABG pH ABG pCO2 ABG pO2 ABG PO2/FiO2 Ratio ABG HCO3 ABG O2 Saturation ABG O2 Content ABG Base Excess A-a Gradient Oxyhemoglobin Total Hemoglobin O2 Delivery Device O2 Liters/Min FiO2 CPAP Sodium Potassium Chloride Carbon Dioxide Anion Gap BUN Creatinine Estim Creat Clear Calc Estimated GFR Glucose POC Capillary Glucose 315 H 312 H Calcium Phosphorus Magnesium Total Bilirubin AST ALT Alkaline Phosphatase Troponin I Cancelled NT-Pro-B Natriuret Pep 1050 H Total Protein Albumin Total T3 Stl Occult Blood (IFOB) Blood Type Antibody Screen Crossmatch 10/05/24 10/05/24 10/05/24 13:40 13:52 13:57 WBC RBC Hgb Hct MCV MCH MCHC RDW Plt Count MPV % Immature Plt Fraction Puncture Site Right radial ABG pH 7.459 H ABG pCO2 30.3 L ABG pO2 89.1 ABG PO2/FiO2 Ratio 2.47 ABG HCO3 21.0 L ABG O2 Saturation 97.3 ABG O2 Content 11.3 L ABG Base Excess -2.3 A-a Gradient 132.4 Oxyhemoglobin 96.8 Total Hemoglobin 8.2 L O2 Delivery Device Cpap O2 Liters/Min Not Reportable FiO2 36 CPAP 10 Sodium Potassium Chloride Carbon Dioxide Anion Gap BUN Creatinine Estim Creat Clear Calc Estimated GFR Glucose POC Capillary Glucose 259 H Calcium Phosphorus Magnesium Total Bilirubin AST ALT Alkaline Phosphatase Troponin I < 0.012 NT-Pro-B Natriuret Pep Total Protein Albumin Total T3 Stl Occult Blood (IFOB) Blood Type Antibody Screen Crossmatch 10/05/24 10/05/24 10/05/24 15:04 16:05 16:56 WBC 17.6 H RBC 4.65 Hgb 7.9 L Hct 29.3 L MCV 63.0 L MCH 17.0 L MCHC 27.0 L RDW 23.8 H Plt Count 293 MPV TNP % Immature Plt Fraction 7.1 Puncture Site ABG pH ABG pCO2 ABG pO2 ABG PO2/FiO2 Ratio ABG HCO3 ABG O2 Saturation ABG O2 Content ABG Base Excess A-a Gradient Oxyhemoglobin Total Hemoglobin O2 Delivery Device O2 Liters/Min FiO2 CPAP Sodium 135 L Potassium Chloride Carbon Dioxide Anion Gap BUN Creatinine Estim Creat Clear Calc Estimated GFR Glucose POC Capillary Glucose 180 H 159 H Calcium Phosphorus Magnesium Total Bilirubin AST ALT Alkaline Phosphatase Troponin I NT-Pro-B Natriuret Pep Total Protein Albumin Total T3 Stl Occult Blood (IFOB) Blood Type Antibody Screen Crossmatch 10/05/24 10/05/24 10/05/24 16:56 16:56 16:56 WBC RBC Hgb Hct MCV MCH MCHC RDW Plt Count MPV % Immature Plt Fraction Puncture Site ABG pH ABG pCO2 ABG pO2 ABG PO2/FiO2 Ratio ABG HCO3 ABG O2 Saturation ABG O2 Content ABG Base Excess A-a Gradient Oxyhemoglobin Total Hemoglobin O2 Delivery Device O2 Liters/Min FiO2 CPAP Sodium Cancelled Potassium 3.2 L Cancelled Chloride 106 Cancelled Carbon Dioxide 21 L Anion Gap BUN Creatinine Estim Creat Clear Calc Estimated GFR Glucose POC Capillary Glucose Calcium Phosphorus Magnesium Total Bilirubin AST ALT Alkaline Phosphatase Troponin I NT-Pro-B Natriuret Pep Total Protein Albumin Total T3 Stl Occult Blood (IFOB) Blood Type Antibody Screen Crossmatch 10/05/24 10/05/24 10/05/24 16:56 16:56 16:56 WBC RBC Hgb Hct MCV MCH MCHC RDW Plt Count MPV % Immature Plt Fraction Puncture Site ABG pH ABG pCO2 ABG pO2 ABG PO2/FiO2 Ratio ABG HCO3 ABG O2 Saturation ABG O2 Content ABG Base Excess A-a Gradient Oxyhemoglobin Total Hemoglobin O2 Delivery Device O2 Liters/Min FiO2 CPAP Sodium Potassium Chloride Carbon Dioxide Cancelled Anion Gap 8 Cancelled BUN 4 L Cancelled Creatinine 0.43 L Estim Creat Clear Calc Estimated GFR Glucose POC Capillary Glucose Calcium Phosphorus Magnesium Total Bilirubin AST ALT Alkaline Phosphatase Troponin I NT-Pro-B Natriuret Pep Total Protein Albumin Total T3 Stl Occult Blood (IFOB) Blood Type Antibody Screen Crossmatch 10/05/24 10/05/24 10/05/24 16:56 16:56 16:56 WBC RBC Hgb Hct MCV MCH MCHC RDW Plt Count MPV % Immature Plt Fraction Puncture Site ABG pH ABG pCO2 ABG pO2 ABG PO2/FiO2 Ratio ABG HCO3 ABG O2 Saturation ABG O2 Content ABG Base Excess A-a Gradient Oxyhemoglobin Total Hemoglobin O2 Delivery Device O2 Liters/Min FiO2 CPAP Sodium Potassium Chloride Carbon Dioxide Anion Gap BUN Creatinine Cancelled Estim Creat Clear Calc Not Reportable Cancelled Estimated GFR > 60 Cancelled Glucose 167 H POC Capillary Glucose Calcium Phosphorus Magnesium Total Bilirubin AST ALT Alkaline Phosphatase Troponin I NT-Pro-B Natriuret Pep Total Protein Albumin Total T3 Stl Occult Blood (IFOB) Blood Type Antibody Screen Crossmatch 10/05/24 10/05/24 10/05/24 16:56 16:56 17:05 WBC RBC Hgb Hct MCV MCH MCHC RDW Plt Count MPV % Immature Plt Fraction Puncture Site ABG pH ABG pCO2 ABG pO2 ABG PO2/FiO2 Ratio ABG HCO3 ABG O2 Saturation ABG O2 Content ABG Base Excess A-a Gradient Oxyhemoglobin Total Hemoglobin O2 Delivery Device O2 Liters/Min FiO2 CPAP Sodium Potassium Chloride Carbon Dioxide Anion Gap BUN Creatinine Estim Creat Clear Calc Estimated GFR Glucose Cancelled POC Capillary Glucose 176 H Calcium 8.3 L Cancelled Phosphorus Magnesium Total Bilirubin AST ALT Alkaline Phosphatase Troponin I < 0.012 NT-Pro-B Natriuret Pep Total Protein Albumin Total T3 Stl Occult Blood (IFOB) Blood Type Antibody Screen Crossmatch 10/05/24 10/05/24 10/06/24 20:56 20:59 00:06 WBC RBC Hgb Hct MCV MCH MCHC RDW Plt Count MPV % Immature Plt Fraction Puncture Site ABG pH ABG pCO2 ABG pO2 ABG PO2/FiO2 Ratio ABG HCO3 ABG O2 Saturation ABG O2 Content ABG Base Excess A-a Gradient Oxyhemoglobin Total Hemoglobin O2 Delivery Device O2 Liters/Min FiO2 CPAP Sodium Potassium Chloride Carbon Dioxide Anion Gap BUN Creatinine Estim Creat Clear Calc Estimated GFR Glucose POC Capillary Glucose 234 H 181 H Calcium Phosphorus Magnesium Total Bilirubin AST ALT Alkaline Phosphatase Troponin I NT-Pro-B Natriuret Pep Total Protein Albumin Total T3 Stl Occult Blood (IFOB) Negative Blood Type Antibody Screen Crossmatch 10/06/24 10/06/24 10/06/24 03:25 06:49 07:49 WBC 14.3 H RBC 4.36 Hgb 7.4 L Hct 27.3 L MCV 62.6 L MCH 17.0 L MCHC 27.1 L RDW 23.3 H Plt Count 253 MPV TNP % Immature Plt Fraction 8.1 Puncture Site ABG pH ABG pCO2 ABG pO2 ABG PO2/FiO2 Ratio ABG HCO3 ABG O2 Saturation ABG O2 Content ABG Base Excess A-a Gradient Oxyhemoglobin Total Hemoglobin O2 Delivery Device O2 Liters/Min FiO2 CPAP Sodium 134 L Potassium 3.8 Chloride 105 Carbon Dioxide 22 Anion Gap 7 BUN 5 L Creatinine 0.41 L Estim Creat Clear Calc Not Reportable Estimated GFR > 60 Glucose 212 H POC Capillary Glucose 217 H 222 H Calcium 8.2 L Phosphorus 1.5 L Magnesium 2.0 Total Bilirubin 0.6 AST 39 H ALT 35 Alkaline Phosphatase 91 Troponin I NT-Pro-B Natriuret Pep Total Protein 6.5 Albumin 3.2 L Total T3 Stl Occult Blood (IFOB) Blood Type Antibody Screen Crossmatch Quality VTE Prophylaxis VTE prophylaxis: mechanical ordered (SCDs)
--- NOTE | 2024-10-06 10:13 | P.CONS_ITS ---
Assessment and Plan Assessment and plan (1) Menorrhagia: Code(s): N92.0 - Excessive and frequent menstruation with regular cycle Status: Acute Assessment and Plan: Patient with workup by [facility] physician and is supposed to be on norethindrone 5mg p.o. daily. Patient has not taken the medication since admission to the ICU. She was taken spotting and if the bleeding picks up heavily will use Lysteda if okay with the hospitalist. Will restart her norethindrone now. HPI Data of Consult Date/Time: 10/06/24 10:13 Requesting Physician: Merly Duckworth DO Primary Care Provider: Thuy Thompson, Consult Narrative Reason for consult: Menorrhagia with anemia Narrative: Harini Cid is a 54 year old female admitted to the ICU with DKA, sepsis, and UTI. Patient with chronic anemia. 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 She has known fibroids. She was started on norethindrone 5mg to take daily. She has been taking them daily except for the 3 days of admission. Patient has began spotting this morning. Cycles typically last for 10 days and she bleeds through a tampon and a pad every hour during her heavy days. She also has increased cramping with the heavy days with clotting. Review of Systems 2 Review of Systems: All systems reviewed & are unremarkable except as noted in HPI and below (History of present illness related to ramp and cargo supervisor complaints) [facility] Past Medical History Medical History (Updated 10/06/24 @ 10:16 by Kerline Marroquin MD) PCOS (polycystic ovarian syndrome) Obesity, Class II, BMI 35-39.9 Iron deficiency anemia History of UTI Insulin dependent diabetes mellitus DKA (diabetic ketoacidosis) History of hypertension Surgical History Surgical History (Updated 10/06/24 @ 10:15 by Kerline Marroquin MD) History of hysteroscopy With D&C August of 2024 S/P right rotator cuff repair (~2012) History of 3 sections History of laparoscopic cholecystectomy (~2004) Family History Family History Father Acute myocardial infarction Cerebrovascular accident Diabetes mellitus Hypertension Sibling Diabetes mellitus Father No problems noted. Mother Hypertension Diabetes mellitus Social History Social History Smoking status: Former smoker Tobacco type: cigarettes Second hand tobacco smoke exposure: Yes Additional smoking assessment comments: only smoked 3 to four months Alcohol intake: never Substance use: never Do You Feel Safe in your Home?: Yes Lack of Transportation: No Lack of Food: Never True Current Housing: I Have Housing Concerned About Future Housing: No Difficulty Paying Gas/Electric Bills: No Difficulty Paying for Meds: No Currently Unemployed: No Education: Grade School Difficulty w/ Childcare or Family Care: No Gender identity (if verbalized by the patient): Female Spiritual care concerns: No Meds Home Medications and Allergies Home Medications ?Medication ?Instructions ?Recorded ?Confirmed ?Type atorvastatin 40 mg tablet 40 mg PO DAILY 10/04/24 10/04/24 History canagliflozin 300 mg tablet 300 mg PO DAILY 10/04/24 10/04/24 History (Invokana) insulin glargine 100 unit/mL (3 16 unit subcut HS 10/04/24 10/04/24 History mL) subcutaneous pen (Lantus Solostar U-100 Insulin) levothyroxine 100 mcg tablet 100 mcg PO DAILY 10/04/24 10/04/24 History lisinopril 20 1 tablet PO DAILY 10/04/24 10/04/24 History mg-hydrochlorothiazide 12.5 mg tablet metformin 500 mg tablet,extended 500 mg PO DAILY 10/04/24 10/04/24 History release 24 hr norethindrone acetate 5 mg tablet 5 mg PO DAILY 10/04/24 10/04/24 History Allergies Allergy/AdvReac Type Severity Reaction Status Date / Time morphine AdvReac Nausea and Verified 10/04/24 22:53 Vomiting Vital Signs Vital Signs - 24 hr 10/05/24 11:15 10/05/24 11:23 10/05/24 12:00 Temperature 102.0 F H Pulse Rate 118 H 111 H Respiratory Rate 50 H 38 H Blood Pressure 117/77 Pulse Oximetry 97 98 99 Oxygen Delivery Nasal Cannula CPAP Oxygen Flow Rate 5 Fraction of Inspired Oxygen 40 10/05/24 12:00 10/05/24 12:00 10/05/24 13:01 Temperature 99.0 F Pulse Rate 111 H 105 H Respiratory Rate 38 H Blood Pressure 124/77 Pulse Oximetry 100 Oxygen Delivery CPAP Oxygen Flow Rate Fraction of Inspired Oxygen 10/05/24 13:17 10/05/24 13:28 10/05/24 14:00 Temperature 98.6 F 100.7 F H Pulse Rate 102 H 98 100 Respiratory Rate 26 H 38 H 33 H Blood Pressure 105/70 112/73 Pulse Oximetry 99 100 99 Oxygen Delivery CPAP Oxygen Flow Rate Fraction of Inspired Oxygen 10/05/24 14:00 10/05/24 14:17 10/05/24 15:17 Temperature 99.7 F H 100.9 F H Pulse Rate 102 H 96 101 H Respiratory Rate 27 H 42 H Blood Pressure 122/78 123/77 Pulse Oximetry 99 95 Oxygen Delivery Oxygen Flow Rate Fraction of Inspired Oxygen 10/05/24 16:00 10/05/24 16:00 10/05/24 16:00 Temperature 101.4 F H Pulse Rate 100 104 H Respiratory Rate 37 H Blood Pressure 125/78 Pulse Oximetry 95 97 Oxygen Delivery Nasal Cannula Oxygen Flow Rate 2 Fraction of Inspired Oxygen 10/05/24 16:17 10/05/24 16:20 10/05/24 16:27 Temperature 101.4 F H 99.7 F H Pulse Rate 100 100 102 H Respiratory Rate 37 H 32 H 26 H Blood Pressure 125/78 134/77 Pulse Oximetry 95 95 97 Oxygen Delivery Nasal Cannula Oxygen Flow Rate 2 Fraction of Inspired Oxygen 28 10/05/24 18:00 10/05/24 18:00 10/05/24 18:40 Temperature 101.2 F H 102.8 F H Pulse Rate 106 H 106 H Respiratory Rate 30 H Blood Pressure 122/66 Pulse Oximetry 96 Oxygen Delivery Oxygen Flow Rate Fraction of Inspired Oxygen 10/05/24 19:40 10/05/24 20:00 10/05/24 20:00 Temperature 100.4 F H Pulse Rate 110 H Respiratory Rate Blood Pressure Pulse Oximetry 95 Oxygen Delivery Nasal Cannula Oxygen Flow Rate 2 Fraction of Inspired Oxygen 10/05/24 20:00 10/05/24 22:00 10/05/24 22:00 Temperature 100.4 F H Pulse Rate 111 H 96 96 Respiratory Rate 41 H 23 H Blood Pressure 124/78 122/68 Pulse Oximetry 95 99 Oxygen Delivery Oxygen Flow Rate Fraction of Inspired Oxygen 10/05/24 22:20 10/06/24 00:00 10/06/24 00:00 Temperature 98.5 F Pulse Rate 111 H 94 Respiratory Rate 24 H Blood Pressure 120/69 Pulse Oximetry 96 98 98 Oxygen Delivery Nasal Cannula Nasal Cannula Oxygen Flow Rate 2 2 Fraction of Inspired Oxygen 10/06/24 00:00 10/06/24 02:00 10/06/24 02:00 Temperature Pulse Rate 98 94 97 Respiratory Rate 27 H Blood Pressure 138/85 Pulse Oximetry 100 Oxygen Delivery Oxygen Flow Rate Fraction of Inspired Oxygen 10/06/24 04:00 10/06/24 04:00 10/06/24 04:00 Temperature 99.2 F Pulse Rate 97 99 Respiratory Rate 24 H Blood Pressure 146/80 H Pulse Oximetry 98 98 Oxygen Delivery Nasal Cannula Oxygen Flow Rate 2 Fraction of Inspired Oxygen 10/06/24 06:00 10/06/24 06:00 10/06/24 08:00 Temperature Pulse Rate 97 100 100 Respiratory Rate 26 H 35 H Blood Pressure 141/81 H Pulse Oximetry 96 96 Oxygen Delivery Room Air Oxygen Flow Rate Fraction of Inspired Oxygen 10/06/24 08:00 10/06/24 08:00 Temperature 100 F H Pulse Rate 100 105 H Respiratory Rate 35 H Blood Pressure 109/61 Pulse Oximetry 100 Oxygen Delivery Oxygen Flow Rate Fraction of Inspired Oxygen Exam 2 Const: General: healthy appearing, comfortable and no acute distress : General: Yes other (Pelvic exam not performed as 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 and 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 has performed) Results Labs 10/06/24 06:49 10/06/24 06:49 Labs: Short CBC 10/05/24 10/06/24 Range/Units 16:56 06:49 WBC 17.6 H 14.3 H (4.5-10.0) K/mm3 Hgb 7.9 L 7.4 L (12.0-15.0) g/dL Hct 29.3 L 27.3 L (37.0-47.0) % Plt Count 293 253 (150-375) k/mm3 BMP 10/05/24 10/05/24 10/05/24 10:06 11:27 16:56 Sodium 137 139 135 L Potassium 3.8 3.7 Chloride 112 H 108 H Carbon Dioxide 13 L 19 L BUN 3 L 3 L Creatinine 0.39 L 0.45 L Glucose 312 H 304 H Calcium 8.3 L 8.2 L 10/05/24 10/05/24 10/05/24 16:56 16:56 16:56 Sodium Cancelled Potassium 3.2 L Cancelled Chloride 106 Cancelled Carbon Dioxide 21 L BUN Creatinine Glucose Calcium 10/05/24 10/05/24 10/05/24 16:56 16:56 16:56 Sodium Potassium Chloride Carbon Dioxide Cancelled BUN 4 L Cancelled Creatinine 0.43 L Cancelled Glucose 167 H Calcium 10/05/24 10/05/24 10/06/24 16:56 16:56 06:49 Sodium 134 L Potassium 3.8 Chloride 105 Carbon Dioxide 22 BUN 5 L Creatinine 0.41 L Glucose Cancelled 212 H Calcium 8.3 L Cancelled 8.2 L Cardiac Enzymes 10/05/24 10/05/24 10/05/24 Range/Units 11:27 11:27 13:52 Troponin I < 0.012 Cancelled < 0.012 (0.000-0.034) ng/mL 10/05/24 Range/Units 16:56 Troponin I < 0.012 (0.000-0.034) ng/mL Liver Function 10/06/24 Range/Units 06:49 Total Bilirubin 0.6 (0.2-1.3) mg/dL AST 39 H (14-36) U/L ALT 35 (6-35) U/L Alkaline Phosphatase 91 (38-126) U/L Albumin 3.2 L (3.5-5.1) g/dL
[2024-10-06] MEDS: PHARMACIST COMMUNICATION ORDER 1 EACH XX (11:41)
[2024-10-06 12:07] LABS: Glucose Point of Care 199 mg/dl (65-105)
--- NOTE | 2024-10-06 12:40 | P.CONUR_ITS ---
Assessment and Plan Assessment and plan (1) Acute pyelonephritis: Code(s): N10 - Acute pyelonephritis Status: Acute Assessment and Plan: Urine culture pending. Continue broad-spectrum antibiotics. Imaging reviewed and consistent with right-sided pyelonephritis. I do not feel there was any evidence of renal obstruction. Continue supportive care. Repeat renal ultrasound in 6 weeks after resolution of symptoms to document resolution of abnormality noted on CT scan Urology Consult Note HPI Date Seen: 10/06/24 Requesting Physician: Merly Duckworth DO Primary Care Provider: Thuy Thompson, Consult Narrative Narrative: Harini Cid is a 54 year old female with a history of diabetes. She is currently admitted to the hospital with DKA likely caused by pyelonephritis. I spoken with her daughter. She states the patient has been feeling ill since Sunday where she noted flank pain and fever associated with nausea and vomiting. She presented to the emergency room and was ultimately admitted for further management. She does not have a history of recurrent urinary tract infections. She states her diabetes is not under good control. She had a CT scan 2 days ago which shows evidence of right-sided pyelonephritis with some focal poor enhancement of the right upper pole. She had an ultrasound today which confirms the same. Also there was mention of mild left hydronephrosis. This is not confirmed on CT scan 2 days ago. I reviewed both images and feel that there is not significant hydronephrosis or evidence of obstruction. Review of Systems 2 Review of Systems: All systems reviewed & are unremarkable except as noted in HPI and below PMFSH Past Medical History Medical History PCOS (polycystic ovarian syndrome) Obesity, Class II, BMI 35-39.9 Iron deficiency anemia History of UTI Insulin dependent diabetes mellitus DKA (diabetic ketoacidosis) History of hypertension Surgical History Surgical History History of hysteroscopy With D&C August of 2024 S/P right rotator cuff repair (~2012) History of 3 sections History of laparoscopic cholecystectomy (~2004) Family History Family History Father Acute myocardial infarction Cerebrovascular accident Diabetes mellitus Hypertension Sibling Diabetes mellitus Father No problems noted. Mother Hypertension Diabetes mellitus Social History Social History Smoking status: Former smoker Tobacco type: cigarettes Second hand tobacco smoke exposure: Yes Additional smoking assessment comments: only smoked 3 to four months Alcohol intake: never Substance use: never Do You Feel Safe in your Home?: Yes Lack of Transportation: No Lack of Food: Never True Current Housing: I Have Housing Concerned About Future Housing: No Difficulty Paying Gas/Electric Bills: No Difficulty Paying for Meds: No Currently Unemployed: No Education: Grade School Difficulty w/ Childcare or Family Care: No Gender identity (if verbalized by the patient): Female Spiritual care concerns: No Meds Home Medications and Allergies Home Medications ?Medication ?Instructions ?Recorded ?Confirmed ?Type atorvastatin 40 mg tablet 40 mg PO DAILY 10/04/24 10/04/24 History canagliflozin 300 mg tablet 300 mg PO DAILY 10/04/24 10/04/24 History (Invokana) insulin glargine 100 unit/mL (3 16 unit subcut HS 10/04/24 10/04/24 History mL) subcutaneous pen (Lantus Solostar U-100 Insulin) levothyroxine 100 mcg tablet 100 mcg PO DAILY 10/04/24 10/04/24 History lisinopril 20 1 tablet PO DAILY 10/04/24 10/04/24 History mg-hydrochlorothiazide 12.5 mg tablet metformin 500 mg tablet,extended 500 mg PO DAILY 10/04/24 10/04/24 History release 24 hr norethindrone acetate 5 mg tablet 5 mg PO DAILY 10/04/24 10/04/24 History Allergies Allergy/AdvReac Type Severity Reaction Status Date / Time morphine AdvReac Nausea and Verified 10/04/24 22:53 Vomiting Vital Signs Vital Signs - 24 hr 10/05/24 13:01 10/05/24 13:17 10/05/24 13:28 Temperature 99.0 F 98.6 F Pulse Rate 105 H 102 H 98 Respiratory Rate 38 H 26 H 38 H Blood Pressure 124/77 105/70 Pulse Oximetry 100 99 100 Oxygen Delivery CPAP Oxygen Flow Rate Fraction of Inspired Oxygen 10/05/24 14:00 10/05/24 14:00 10/05/24 14:17 Temperature 100.7 F H 99.7 F H Pulse Rate 100 102 H 96 Respiratory Rate 33 H 27 H Blood Pressure 112/73 122/78 Pulse Oximetry 99 99 Oxygen Delivery Oxygen Flow Rate Fraction of Inspired Oxygen 10/05/24 15:17 10/05/24 16:00 10/05/24 16:00 Temperature 100.9 F H 101.4 F H Pulse Rate 101 H 100 104 H Respiratory Rate 42 H 37 H Blood Pressure 123/77 125/78 Pulse Oximetry 95 95 Oxygen Delivery Oxygen Flow Rate Fraction of Inspired Oxygen 10/05/24 16:00 10/05/24 16:17 10/05/24 16:20 Temperature 101.4 F H Pulse Rate 100 100 Respiratory Rate 37 H 32 H Blood Pressure 125/78 Pulse Oximetry 97 95 95 Oxygen Delivery Nasal Cannula Nasal Cannula Oxygen Flow Rate 2 2 Fraction of Inspired Oxygen 28 10/05/24 16:27 10/05/24 18:00 10/05/24 18:00 Temperature 99.7 F H 101.2 F H Pulse Rate 102 H 106 H 106 H Respiratory Rate 26 H 30 H Blood Pressure 134/77 122/66 Pulse Oximetry 97 96 Oxygen Delivery Oxygen Flow Rate Fraction of Inspired Oxygen 10/05/24 18:40 10/05/24 19:40 10/05/24 20:00 Temperature 102.8 F H 100.4 F H Pulse Rate Respiratory Rate Blood Pressure Pulse Oximetry 95 Oxygen Delivery Nasal Cannula Oxygen Flow Rate 2 Fraction of Inspired Oxygen 10/05/24 20:00 10/05/24 20:00 10/05/24 22:00 Temperature 100.4 F H Pulse Rate 110 H 111 H 96 Respiratory Rate 41 H Blood Pressure 124/78 Pulse Oximetry 95 Oxygen Delivery Oxygen Flow Rate Fraction of Inspired Oxygen 10/05/24 22:00 10/05/24 22:20 10/06/24 00:00 Temperature Pulse Rate 96 111 H Respiratory Rate 23 H Blood Pressure 122/68 Pulse Oximetry 99 96 98 Oxygen Delivery Nasal Cannula Nasal Cannula Oxygen Flow Rate 2 2 Fraction of Inspired Oxygen 10/06/24 00:00 10/06/24 00:00 10/06/24 02:00 Temperature 98.5 F Pulse Rate 94 98 94 Respiratory Rate 24 H Blood Pressure 120/69 Pulse Oximetry 98 Oxygen Delivery Oxygen Flow Rate Fraction of Inspired Oxygen 10/06/24 02:00 10/06/24 04:00 10/06/24 04:00 Temperature Pulse Rate 97 97 Respiratory Rate 27 H Blood Pressure 138/85 Pulse Oximetry 100 98 Oxygen Delivery Nasal Cannula Oxygen Flow Rate 2 Fraction of Inspired Oxygen 10/06/24 04:00 10/06/24 06:00 10/06/24 06:00 Temperature 99.2 F Pulse Rate 99 97 100 Respiratory Rate 24 H 26 H Blood Pressure 146/80 H 141/81 H Pulse Oximetry 98 96 Oxygen Delivery Oxygen Flow Rate Fraction of Inspired Oxygen 10/06/24 08:00 10/06/24 08:00 10/06/24 08:00 Temperature 100 F H Pulse Rate 100 100 105 H Respiratory Rate 35 H 35 H Blood Pressure 109/61 Pulse Oximetry 96 100 Oxygen Delivery Room Air Oxygen Flow Rate Fraction of Inspired Oxygen 10/06/24 10:00 10/06/24 10:00 10/06/24 12:00 Temperature Pulse Rate 92 92 88 Respiratory Rate 25 H 22 H Blood Pressure 109/61 Pulse Oximetry 96 98 Oxygen Delivery Room Air Oxygen Flow Rate Fraction of Inspired Oxygen 10/06/24 12:00 10/06/24 12:00 10/06/24 12:34 Temperature 98.4 F Pulse Rate 88 88 103 H Respiratory Rate 22 H Blood Pressure 115/54 L Pulse Oximetry 98 95 Oxygen Delivery Room Air Oxygen Flow Rate Fraction of Inspired Oxygen 10/06/24 12:34 Temperature Pulse Rate 103 H Respiratory Rate 20 Blood Pressure Pulse Oximetry 95 Oxygen Delivery Room Air Oxygen Flow Rate Fraction of Inspired Oxygen 21 Exam 2 Const: General: cooperative, alert, awake and obese Nutritional Appearance: overweight Orientation/consciousness: patient oriented x3 HENMT: Head: normal to inspection Resp: Effort & Inspection: normal respiratory effort, no grunting and not labored Skin: General skin exam: normal color Psych: Appearance: grossly normal Results Labs 10/06/24 06:49 10/06/24 06:49 Labs: Short CBC 10/05/24 10/06/24 Range/Units 16:56 06:49 WBC 17.6 H 14.3 H (4.5-10.0) K/mm3 Hgb 7.9 L 7.4 L (12.0-15.0) g/dL Hct 29.3 L 27.3 L (37.0-47.0) % Plt Count 293 253 (150-375) k/mm3 BMP 10/05/24 10/05/24 10/05/24 16:56 16:56 16:56 Sodium 135 L Cancelled Potassium 3.2 L Cancelled Chloride 106 Carbon Dioxide BUN Creatinine Glucose Calcium 10/05/24 10/05/24 10/05/24 16:56 16:56 16:56 Sodium Potassium Chloride Cancelled Carbon Dioxide 21 L Cancelled BUN 4 L Cancelled Creatinine 0.43 L Glucose Calcium 10/05/24 10/05/24 10/05/24 16:56 16:56 16:56 Sodium Potassium Chloride Carbon Dioxide BUN Creatinine Cancelled Glucose 167 H Cancelled Calcium 8.3 L Cancelled 10/06/24 06:49 Sodium 134 L Potassium 3.8 Chloride 105 Carbon Dioxide 22 BUN 5 L Creatinine 0.41 L Glucose 212 H Calcium 8.2 L Cardiac Enzymes 10/05/24 10/05/24 Range/Units 13:52 16:56 Troponin I < 0.012 < 0.012 (0.000-0.034) ng/mL Liver Function 10/06/24 Range/Units 06:49 Total Bilirubin 0.6 (0.2-1.3) mg/dL AST 39 H (14-36) U/L ALT 35 (6-35) U/L Alkaline Phosphatase 91 (38-126) U/L Albumin 3.2 L (3.5-5.1) g/dL Imaging My impression: Outlined in history of present illness
--- NOTE | 2024-10-06 12:51 | PHAR ---
VERFIRED PT HOME MED NORETHINDRONE 5MG DAILY.
[2024-10-06] MEDS: CEFEPIME 2 GM/NS 50 ML 2 GM/50 ML BAG IVPB ×2 (15:00→21:06)
[2024-10-06 16:54] LABS: Glucose Point of Care 241 mg/dl (65-105)
--- NOTE | 2024-10-06 20:18 | WPDGICN ---
Assessment and Plan Assessment and plan (1) Iron deficiency anemia: Code(s): D50.9 - Iron deficiency anemia, unspecified Status: Acute Assessment and Plan: briefly, this patient was admitted on 10/04/2024 with diabetic ketoacidosis, and right flank pain. The patient has a chronic history of polycystic ovarian syndrome a uterine fibroids. She has been having perimenopausal symptoms and increased menses, having had extensive workup at [facility], including a hysteroscopy and D&C. She is considered to have chronic blood losses from her uterus leading to iron deficiency anemia, with a hemoglobin of 6.7 in this admission. Moreover, she had a negative colonoscopy 1 year ago and was told to return in 10 years. Therefore, there is no indication for endoscopic procedures at this time since the most likely cause for iron deficiency anemia in her case is gynecological losses. GI Consult Note Consult date/time: 10/06/24 20:18 HPI: Harini Cid is a 54 year old female [facility] Past Medical History Medical History (Updated 10/06/24 @ 20:19 by Allan Johnson MD) PCOS (polycystic ovarian syndrome) Obesity, Class II, BMI 35-39.9 History of UTI Insulin dependent diabetes mellitus DKA (diabetic ketoacidosis) History of hypertension Surgical History Surgical History History of hysteroscopy With D&C August of 2024 S/P right rotator cuff repair (~2012) History of 3 sections History of laparoscopic cholecystectomy (~2004) Family History Family History Father Acute myocardial infarction Cerebrovascular accident Diabetes mellitus Hypertension Sibling Diabetes mellitus Father No problems noted. Mother Hypertension Diabetes mellitus Social History Social History Smoking status: Former smoker Tobacco type: cigarettes Second hand tobacco smoke exposure: Yes Additional smoking assessment comments: only smoked 3 to four months Alcohol intake: never Substance use: never Do You Feel Safe in your Home?: Yes Lack of Transportation: No Lack of Food: Never True Current Housing: I Have Housing Concerned About Future Housing: No Difficulty Paying Gas/Electric Bills: No Difficulty Paying for Meds: No Currently Unemployed: No Education: Grade School Difficulty w/ Childcare or Family Care: No Gender identity (if verbalized by the patient): Female Spiritual care concerns: No Meds Home Medications and Allergies Home Medications ?Medication ?Instructions ?Recorded ?Confirmed ?Type atorvastatin 40 mg tablet 40 mg PO DAILY 10/04/24 10/04/24 History canagliflozin 300 mg tablet 300 mg PO DAILY 10/04/24 10/04/24 History (Invokana) insulin glargine 100 unit/mL (3 16 unit subcut HS 10/04/24 10/04/24 History mL) subcutaneous pen (Lantus Solostar U-100 Insulin) levothyroxine 100 mcg tablet 100 mcg PO DAILY 10/04/24 10/04/24 History lisinopril 20 1 tablet PO DAILY 10/04/24 10/04/24 History mg-hydrochlorothiazide 12.5 mg tablet metformin 500 mg tablet,extended 500 mg PO DAILY 10/04/24 10/04/24 History release 24 hr norethindrone acetate 5 mg tablet 5 mg PO DAILY 10/04/24 10/04/24 History Allergies Allergy/AdvReac Type Severity Reaction Status Date / Time morphine AdvReac Nausea and Verified 10/04/24 22:53 Vomiting Vital Signs Vital Signs - 24 hr 10/05/24 22:00 10/05/24 22:00 10/05/24 22:20 Temperature Pulse Rate 96 96 111 H Respiratory Rate 23 H Blood Pressure 122/68 Pulse Oximetry 99 96 Oxygen Delivery Nasal Cannula Oxygen Flow Rate 2 Fraction of Inspired Oxygen 10/06/24 00:00 10/06/24 00:00 10/06/24 00:00 Temperature 98.5 F Pulse Rate 94 98 Respiratory Rate 24 H Blood Pressure 120/69 Pulse Oximetry 98 98 Oxygen Delivery Nasal Cannula Oxygen Flow Rate 2 Fraction of Inspired Oxygen 10/06/24 02:00 10/06/24 02:00 10/06/24 04:00 Temperature Pulse Rate 94 97 Respiratory Rate 27 H Blood Pressure 138/85 Pulse Oximetry 100 98 Oxygen Delivery Nasal Cannula Oxygen Flow Rate 2 Fraction of Inspired Oxygen 10/06/24 04:00 10/06/24 04:00 10/06/24 06:00 Temperature 99.2 F Pulse Rate 97 99 97 Respiratory Rate 24 H Blood Pressure 146/80 H Pulse Oximetry 98 Oxygen Delivery Oxygen Flow Rate Fraction of Inspired Oxygen 10/06/24 06:00 10/06/24 08:00 10/06/24 08:00 Temperature Pulse Rate 100 100 100 Respiratory Rate 26 H 35 H Blood Pressure 141/81 H Pulse Oximetry 96 96 Oxygen Delivery Room Air Oxygen Flow Rate Fraction of Inspired Oxygen 10/06/24 08:00 10/06/24 10:00 10/06/24 10:00 Temperature 100 F H Pulse Rate 105 H 92 92 Respiratory Rate 35 H 25 H Blood Pressure 109/61 109/61 Pulse Oximetry 100 96 Oxygen Delivery Oxygen Flow Rate Fraction of Inspired Oxygen 10/06/24 12:00 10/06/24 12:00 10/06/24 12:00 Temperature 98.4 F Pulse Rate 88 88 88 Respiratory Rate 22 H 22 H Blood Pressure 115/54 L Pulse Oximetry 98 98 Oxygen Delivery Room Air Oxygen Flow Rate Fraction of Inspired Oxygen 10/06/24 12:34 10/06/24 12:34 10/06/24 12:50 Temperature Pulse Rate 103 H 103 H Respiratory Rate 20 Blood Pressure Pulse Oximetry 95 95 Oxygen Delivery Room Air Room Air Room Air Oxygen Flow Rate Fraction of Inspired Oxygen 21 10/06/24 13:03 10/06/24 14:00 10/06/24 16:00 Temperature Pulse Rate 94 100 Respiratory Rate 20 Blood Pressure Pulse Oximetry 97 Oxygen Delivery Room Air Room Air Oxygen Flow Rate Fraction of Inspired Oxygen 21 10/06/24 16:00 10/06/24 16:00 10/06/24 19:44 Temperature 99.9 F H 98.8 F Pulse Rate 100 100 94 Respiratory Rate 21 H 16 Blood Pressure 116/59 L 117/60 Pulse Oximetry 97 99 Oxygen Delivery Oxygen Flow Rate Fraction of Inspired Oxygen Results Labs 10/06/24 06:49 10/06/24 06:49 Labs: Short CBC 10/06/24 Range/Units 06:49 WBC 14.3 H (4.5-10.0) K/mm3 Hgb 7.4 L (12.0-15.0) g/dL Hct 27.3 L (37.0-47.0) % Plt Count 253 (150-375) k/mm3 [facility] 10/06/24 06:49 Sodium 134 L Potassium 3.8 Chloride 105 Carbon Dioxide 22 BUN 5 L Creatinine 0.41 L Glucose 212 H Calcium 8.2 L Liver Function 10/06/24 Range/Units 06:49 Total Bilirubin 0.6 (0.2-1.3) mg/dL AST 39 H (14-36) U/L ALT 35 (6-35) U/L Alkaline Phosphatase 91 (38-126) U/L Albumin 3.2 L (3.5-5.1) g/dL
[2024-10-06 20:35] LABS: Glucose Point of Care 273 mg/dl (65-105)
[2024-10-07] VITALS (9 sets, daily range): BP systolic 123–140; BP diastolic 67–70; PULSE 80–98; RESP 15–22; TEMP 36.7–37.2; O2SAT 95–99
[2024-10-07 04:21] LABS: Hematocrit 27.5 % (37.0-47.0); Hemoglobin 7.5 g/dL (12.0-15.0); Immature Platelet Fraction Pct 7.7 % (0.9-11.2); Mean Corpuscular HGB Conc 27.3 g/dl (32-36); Mean Corpuscular Hemoglobin 17.1 pg (26-34); Mean Corpuscular Volume 62.8 fl (80-100); Platelet Count Result 243 k/mm3 (150-375); Red Blood Count 4.38 M/mm3 (4.2-5.4); Red Cell Distribution Width 23.5 % (11.5-14.5); White Blood Count 11.4 K/mm3 (4.5-10.0)
[2024-10-07 04:38] LABS: Alanine Aminotransferase 30 U/L (6-35); Albumin Level 3.2 g/dL (3.5-5.1); Alkaline Phosphatase 102 U/L (38-126); Anion Gap 7 mmol/L (4-12); Aspartate Amino Transferase 32 U/L (14-36); Bilirubin,Total 0.4 mg/dL (0.2-1.3); Blood Urea Nitrogen 6 mg/dL (7-17); Calcium 8.6 mg/dL (8.4-10.2); Carbon Dioxide 24 mmol/L (22-30); Chloride 106 mmol/L (98-107); Estimated Glomerular Filt Rate > 60; Glucose 222 mg/dL (65-110); Magnesium 1.9 mg/dL (1.6-2.3); Phosphorus 2.7 mg/dL (2.5-4.5); Potassium 3.6 mmol/L (3.4-5.0); Sodium 137 mmol/L (137-145); Total Protein 6.7 g/dL (6.3-8.2)
[2024-10-07] MEDS: LEVOTHYROXINE SODIUM 100 MCG TABLET PO (05:26)
[2024-10-07] MEDS: CEFEPIME 2 GM/NS 50 ML 2 GM/50 ML BAG IVPB (05:27)
[2024-10-07] MEDS: CENTRAL LINE FLUSH 10 ML IV PUSH (05:27)
[2024-10-07] MEDS: ACETAMINOPHEN 325 MG TABLET 650 MG PO (05:32)
[2024-10-07 07:38] LABS: Glucose Point of Care 224 mg/dl (65-105)
[2024-10-07] MEDS: ATORVASTATIN 40 MG TABLET PO (08:31)
[2024-10-07] MEDS: lisinopriL 20 MG TABLET PO (08:31)
[2024-10-07] MEDS: INSULIN ASPART (*BKC) 100 UNITS/ML SUB-Q ×2 (08:32→12:01)
--- NOTE | 2024-10-07 08:33 | P.PNUR_ITS ---
Progress Note: A&P Assessment and Plan (1) Acute pyelonephritis: Code(s): N10 - Acute pyelonephritis Status: Acute Assessment and Plan: CT abdomen/pelvis and renal ultrasound reviewed, consistent with right-sided pyelonephritis. No evidence of obstruction. Urine and blood cultures with growth of E coli, sensitive to cefepime. Continue antibiotics and supportive care measures. WBC trending down, 11.4 today. She remains afebrile. Creatinine is stable at 0.42. Will plan for repeat renal ultrasound in 6 weeks to document resolution of CT/KIMMY abnormalities. Outpatient follow-up has been arranged. Subjective Subjective Date/Time Seen: 10/07/24 08:33 Interval history: Harini is doing well today. She does complain of low back pain associated with menstrual cramping. She denies dysuria or hematuria. No flank pain. Denies nausea, vomiting, fever, or chills. She is tolerating her diet. Review of Systems Review of Systems: All systems reviewed & are unremarkable except as noted in HPI and below Exam Narrative: General: Awake, alert, comfortable, no acute distress HEENT: Normocephalic, atraumatic, sclerae anicteric Respiratory: Normal respiratory effort, no accessory muscle use Skin: Normal coloration, warm and dry Neurologic: No focal neuro deficits noted Psychiatric: Appropriate mood and affect, judgment and insight intact Objective Data Vital Signs Vital Signs: Vital Signs - 24 hr 10/06/24 10:00 10/06/24 10:00 10/06/24 12:00 Temperature Pulse Rate 92 92 88 Respiratory Rate 25 H 22 H Blood Pressure 109/61 Pulse Oximetry 96 98 Oxygen Delivery Room Air Fraction of Inspired Oxygen 10/06/24 12:00 10/06/24 12:00 10/06/24 12:34 Temperature 98.4 F Pulse Rate 88 88 103 H Respiratory Rate 22 H Blood Pressure 115/54 L Pulse Oximetry 98 95 Oxygen Delivery Room Air Fraction of Inspired Oxygen 10/06/24 12:34 10/06/24 12:50 10/06/24 13:03 Temperature Pulse Rate 103 H Respiratory Rate 20 Blood Pressure Pulse Oximetry 95 Oxygen Delivery Room Air Room Air Room Air Fraction of Inspired Oxygen 21 10/06/24 14:00 10/06/24 16:00 10/06/24 16:00 Temperature Pulse Rate 94 100 100 Respiratory Rate 20 Blood Pressure Pulse Oximetry 97 Oxygen Delivery Room Air Fraction of Inspired Oxygen 21 10/06/24 16:00 10/06/24 19:44 10/06/24 20:00 Temperature 99.9 F H 98.8 F Pulse Rate 100 94 Respiratory Rate 21 H 16 Blood Pressure 116/59 L 117/60 Pulse Oximetry 97 99 Oxygen Delivery Room Air Fraction of Inspired Oxygen 10/06/24 20:00 10/06/24 22:00 10/06/24 23:51 Temperature 98.6 F Pulse Rate 97 94 92 Respiratory Rate 18 Blood Pressure 120/74 Pulse Oximetry 98 Oxygen Delivery Fraction of Inspired Oxygen 10/06/24 23:58 10/07/24 00:00 10/07/24 02:00 Temperature Pulse Rate 93 80 Respiratory Rate Blood Pressure Pulse Oximetry Oxygen Delivery Room Air Fraction of Inspired Oxygen 10/07/24 04:00 10/07/24 04:00 10/07/24 04:00 Temperature 98.9 F Pulse Rate 89 90 Respiratory Rate 15 Blood Pressure 140/70 Pulse Oximetry 95 Oxygen Delivery Room Air Fraction of Inspired Oxygen 10/07/24 06:00 10/07/24 07:26 Temperature 98.1 F Pulse Rate 88 81 Respiratory Rate 20 Blood Pressure 123/70 Pulse Oximetry 99 Oxygen Delivery Fraction of Inspired Oxygen Intake/Output Intake/Output: Intake & Output 10/04/24 10/05/24 10/06/24 10/07/24 23:59 23:59 23:59 23:59 Intake Total 2569.2 3237.1 690 960 Output Total 2800 2700 Balance 2569.2 437.1 -2010 960 Meds/Results Medications: Active Medications Generic Name Dose Route Start Last Admin Trade Name Freq PRN Reason Stop Dose Admin Acetaminophen 650 mg 10/04/24 21:34 10/07/24 05:32 Acetaminophen 325 Mg Tablet PO 650 mg Q4H PRN Administration Mild Pain (1-3) or Fever Hydrocodone Bitart/Acetaminophen 1 tab 10/06/24 18:08 Hydrocodone/Acetaminophen (*Crx) 5-325 Mg Tablet PO Q6H PRN Pain Rated 4-6 Atorvastatin Calcium 40 mg 10/05/24 09:00 10/06/24 09:06 Atorvastatin 40 Mg Tablet PO 40 mg DAILY FLACO Administration Benzocaine 1 lozenge 10/06/24 07:33 Benzocaine/Menthol (*Bkc) 18 Ea Lozenge PO PRN PRN Sore Throat Dextrose 12.5 gm 10/04/24 19:05 Dextrose 50% 25 Gm/50 Ml Syringe IV PUSH PRN PRN Hypoglycemia Protocol Glucagon 1 mg 10/04/24 19:05 Glucagon For Inj 1 Mg Vial IM PRN PRN Hypoglycemia Protocol Glucose 15 gm 10/04/24 19:05 Glucose Oral Gel 15 Gm Of Glucse In 37.5 Gm Tube PO PRN PRN Hypoglycemia Protocol Home Med 1 each 10/07/24 09:00 Home Medication - Norethidrone 5mg Tab PO 11/06/24 08:59 DAILY FLACO Dextrose 1,000 mls @ 100 mls/hr 10/04/24 19:05 Dextrose 5% 1,000 Ml IVPB PRN PRN Hypoglycemia Protocol Cefepime HCl 2 gm in 50 mls @ 100 mls/hr 10/06/24 15:00 10/07/24 05:57 Maxipime 2 Gm/Ns 50 Ml IVPB Infused Q8HR FLACO Infusion Insulin Aspart 3 - 6 units 10/07/24 08:00 Insulin Aspart (*Bkc) 100 Units/Ml SUB-Q TIDWM [facility] Protocol Insulin Aspart 3 - 6 units 10/07/24 21:00 Insulin Aspart (*Bkc) 100 Units/Ml SUB-Q HS [facility] Protocol Insulin Glargine 22 units 10/05/24 09:00 10/06/24 08:01 Insulin Glargine (*Bkc) 100 Units/Ml SUB-Q 22 units QAM [facility] Administration Levothyroxine Sodium 100 mcg 10/05/24 06:30 10/07/24 05:26 Levothyroxine Sodium 100 Mcg Tablet PO 100 mcg DAILY@0630 [facility] Administration Lisinopril 20 mg 10/05/24 09:00 10/06/24 09:06 Lisinopril 20 Mg Tablet PO 20 mg QAM [facility] Administration Morphine Sulfate 2 mg 10/05/24 11:02 10/05/24 13:41 Morphine Sulfate (*Crx) 2 Mg/Ml Inj IV PUSH 2 mg Q2H PRN Administration Pain Rated 7-10 Nitroglycerin 0.4 mg 10/05/24 10:59 10/05/24 11:35 Nitroglycerin Sl 0.4 Mg Tablet SUBLINGUAL 0.4 mg Q5MIN PRN Administration Chest Pain Ondansetron HCl 4 mg 10/04/24 21:34 10/05/24 03:10 Ondansetron Inj 4 Mg/2 Ml Vial IV PUSH 4 mg Q4H PRN Administration Nausea Perflutren Lipid Microsphere 0 ml 10/05/24 10:54 Perflutren Lipid Microspheres 1.5 Ml Vial Diluted To 10 Ml Total Volume IV PUSH 10/08/24 10:54 ONCE PRN adequate visualization Protocol Phenol 1 spray 10/06/24 07:33 Phenol/Sod Pheno Bixby Heaton (*Bkc) MUCOUS MEM PRN PRN Sore Throat Sodium Chloride 10 ml 10/05/24 22:00 10/07/24 05:27 Central Line Flush IV PUSH 10 ml Q8HR FLACO Administration Sodium Chloride 10 ml 10/05/24 15:38 Central Line Flush IV PUSH PRN PRN with TPN bag changes Sodium Chloride 20 ml 10/05/24 15:38 10/06/24 06:40 Central Line Flush IV PUSH 20 ml PRN PRN Administration after blood draws Radiology Results: ITS Impressions Abdomen/Pelvis CT 10/04/24 20:16 IMPRESSION: 1. No evidence of appendicitis, diverticulitis or intestinal obstruction. No kidney stones. 2. Hypodensity in the right kidney upper pole which may indicate a mass and less likely focal nephritis. Further evaluation and follow-up advised. 3. Tiny left adrenal nodule. No follow-up is clinically warranted. 4. Fibroid uterus. Ultrasound evaluation advised. 5. Hepatomegaly. Chest X-Ray 10/05/24 11:24 Impression: Minimal congestive change and probable minimal bibasilar pulmonary edema. Right-sided PICC line in place. Renal Ultrasound 10/06/24 10:43 IMPRESSION: 1. Small ill-defined hyperechoic region at the upper pole the right kidney corresponding to the region of decreased enhancement on prior CT suspicious for pyelonephritis. Consider follow-up ultrasound or pre and postcontrast MRI or CT in a few months to exclude less likely neoplasm and document resolution. 2. Mild left hydronephrosis. Neck/Chest CT 10/06/24 11:32 IMPRESSION: 1. Enlarged particularly glands. Clinical evaluation advised. 2. Calcific foci in the left thyroid. Further evaluation advised. 3. Bilateral basal atelectasis versus pneumonia with effusion. 4. Hyperdense lesions in the right kidney which may be masses. Further evaluation advised. Labs Labs: Laboratory Results - last 24 hr 10/06/24 10/06/24 10/06/24 12:04 16:51 20:31 WBC RBC Hgb Hct MCV MCH MCHC RDW Plt Count MPV % Immature Plt Fraction Sodium Potassium Chloride Carbon Dioxide Anion Gap BUN Creatinine Estim Creat Clear Calc Estimated GFR Glucose POC Capillary Glucose 199 H 241 H 273 H Calcium Phosphorus Magnesium Total Bilirubin AST ALT Alkaline Phosphatase Total Protein Albumin 10/07/24 10/07/24 04:11 07:36 WBC 11.4 H RBC 4.38 Hgb 7.5 L Hct 27.5 L MCV 62.8 L MCH 17.1 L MCHC 27.3 L RDW 23.5 H Plt Count 243 MPV TNP % Immature Plt Fraction 7.7 Sodium 137 Potassium 3.6 Chloride 106 Carbon Dioxide 24 Anion Gap 7 BUN 6 L Creatinine 0.42 L Estim Creat Clear Calc Not Reportable Estimated GFR > 60 Glucose 222 H POC Capillary Glucose 224 H Calcium 8.6 Phosphorus 2.7 Magnesium 1.9 Total Bilirubin 0.4 AST 32 ALT 30 Alkaline Phosphatase 102 Total Protein 6.7 Albumin 3.2 L
[2024-10-07] MEDS: INSULIN GLARGINE (*BKC) 100 UNITS/ML 22 UNITS SUB-Q (08:34)
[2024-10-07] MEDS: NORETHIDRONE 5 MG 1 EACH PO (08:36)
[2024-10-07 11:45] LABS: Glucose Point of Care 266 mg/dl (65-105)
--- NOTE | 2024-10-07 12:49 | P.DS_ITS ---
DS: Admitting Diagnosis Discharge Date 10/07/24 Admitting Diagnosis Right side pain since early this morning DS: Discharge Diagnosis Discharge Diagnosis (1) Iron deficiency anemia: Qualifiers: Iron deficiency anemia type: chronic blood loss Qualified Code(s): D50.0 - Iron deficiency anemia secondary to blood loss (chronic) Code(s): D50.9 - Iron deficiency anemia, unspecified Status: Acute (2) Sepsis: Qualifiers: Sepsis acute organ dysfunction status: without acute organ dysfunction Sepsis type: sepsis due to unspecified organism Qualified Code(s): A41.9 - Sepsis, unspecified organism Code(s): A41.9 - Sepsis, unspecified organism Status: Acute (3) Acute pyelonephritis: Code(s): N10 - Acute pyelonephritis Status: Acute (4) DKA, type 2, not at goal: Code(s): E11.10 - Type 2 diabetes mellitus with ketoacidosis without coma Status: Acute DS: Summary Hospital Course Hospital Course: 54-year-old female with a past medical history of obesity, insulin-dependent diabetes mellitus, hypothyroidism, essential hypertension and recent UTI treated as outpatient 2 months ago who presented to the ER via EMS from home due to right side/flank pain starting around 03:00. The patient's daughter is at bedside and helps provide history with patient's permission. The patient had UTI 2 months ago and was treated with 7 days of oral antibiotics. She reports her symptoms for her last UTI involved dysuria but she has not been having dysuria this time. Instead she did not realize that the urinary urgency and frequency that she was having could also be symptoms of UTI. She has been having the symptoms for about 3 weeks. She denies any urinary incontinence. She has been having increased thirst for the last 10 days or so. She has been having headache for several days and has sore throat for 3 days. Yesterday she began having rigors, chills and subjective fevers. Her daughter at provider with 500 mg of Tylenol early this morning. She denies any hematuria. She has been or having normal bowel movements and denies hematochezia or melena. She denies sensation of incomplete bladder emptying. Has been having nausea and vomiting since early this morning. She denies any bilious emesis. She received Zofran in route to the hospital. She was afebrile on arrival to the ER but shortly thereafter developed a fever with a T-max of 102.5?. She denies any cough or congestion. She reports some tightness in her upper abdomen that goes around to her back in AC wheezing in nature. She does have chronic menorrhagia due to PCOS. She has chronic anemia and takes iron supplements at home despite taking iron supplements her hemoglobin in the ER was noted to be 7.8. Her prior values back in 2020 was 10. The she denies any symptoms of lightheadedness, near-syncope or palpitations when she is not sick. Her daughter was at bedside reports that the patient snores quite loudly and does have multiple episodes of apnea at night. The patient has never had a sleep study. Patient does report daytime fatigue and sleepiness at baseline. Her glucoses in the ER were 351. She takes her Lantus and oral hypoglycemic agents as directed but only checks her glucoses every 3 days or so. She reports that when she checks her sugars they are always high. She never has normal glucoses. She does have symptoms of peripheral neuropathy. She denies any known diagnosis of diabetic retinopathy. Patient was managed for DKA, successfully transitioned to Sq Regimen, Patient noted that she is on metformin and another po meds at home in addition to lantus 16 units, thus julián was discharged on 22 units of lantus and will continue home metformin and other PO regimen. Also discharged on SSI humalog pen. Also managed for sepsis from Pyelonephritis, US renal showed mild hydronephrosis, blood culture positive for E coli and nwo on Levaquin based on Sensitivity. Discharged on 8 days more of Levaquin. Urology noted he will follow up with repeat imaging outpatinet for follow up Also managed for iron deficiency anemia, received 1000mg IV iron, Gi was consulted however julián is known to have uterine bleeeding and she is being managed at [facility], no endoscopy was warranted as a result. HEATING UNIT MECHANIC was consulted and She noted patient will continue follow up with HEATING UNIT MECHANIC at [facility]. hb stable, she received 1 unit pRBC while here. F/u with PCP in 3-5 days F/u with urology and Gi as instruced continue follow up with HEATING UNIT MECHANIC [facility]. Time Spent with Patient Time attestation: Total time spent providing and/or coordinating discharge services: DS: Data Data Completed and Pending Labs on day of discharge: Labs from last 24 hours 10/07/24 10/07/24 10/07/24 11:42 07:36 04:11 WBC 11.4 H RBC 4.38 Hgb 7.5 L Hct 27.5 L MCV 62.8 L MCH 17.1 L MCHC 27.3 L RDW 23.5 H Plt Count 243 MPV TNP % Immature Plt Fraction 7.7 Sodium 137 Potassium 3.6 Chloride 106 Carbon Dioxide 24 Anion Gap 7 BUN 6 L Creatinine 0.42 L Estim Creat Clear Calc Not Reportable Estimated GFR > 60 Glucose 222 H POC Capillary Glucose 266 H 224 H Calcium 8.6 Phosphorus 2.7 Magnesium 1.9 Total Bilirubin 0.4 AST 32 ALT 30 Alkaline Phosphatase 102 Total Protein 6.7 Albumin 3.2 L 10/06/24 10/06/24 20:31 16:51 WBC RBC Hgb Hct MCV MCH MCHC RDW Plt Count MPV % Immature Plt Fraction Sodium Potassium Chloride Carbon Dioxide Anion Gap BUN Creatinine Estim Creat Clear Calc Estimated GFR Glucose POC Capillary Glucose 273 H 241 H Calcium Phosphorus Magnesium Total Bilirubin AST ALT Alkaline Phosphatase Total Protein Albumin Preliminary micro results at discharge 10/04/24 19:22 Blood Culture - Preliminary Blood Escherichia Coli Discharge Plan Discharge Attending physician on discharge: Jenny Momin Consulting providers: Tacho Andrade; Kerline Marroquin; Peter Arora Discharging Clinician: Jenny Momin Anticipated Discharge Date/Time: 10/07/24 12:28 Patient Disposition: Home Activity: as tolerated Diet: as tolerated and diabetic Discharge Instructions: 3 units for Blood sugar 151-200 5 units for blood sugar 201-250 8 units for blood sugar 251 -300 10 units for blood sugar 301-350 Patient Instructions: Antibiotic Form, Diabetic Ketoacidosis (DC), Basic Carbohydrate Counting (DC) Patient Language: Amharic Stand Alone Forms: General Discharge Information Follow-up/Referrals: Peter Arora MD [Physician] - (F/u with Urology as instructed ) Kerline Marroquin MD [Physician] - (F/u with ObGYN as instructed ) Jay,Thuy Alexander MD [Primary Care Provider] - (F/u with PCP in 3-5 days ) Discharge Medications: New hydrocodone-acetaminophen 5-325 mg Tablet 1 tablet PO Q6H PRN (Reason: Pain Rated 4-6) 7 Days Qty: 5 0RF levofloxacin 750 mg tablet 750 mg PO DAILY 8 Days Qty: 8 0RF Humalog KwikPen Insulin 200 unit/mL (3 mL) insulin pen 1 sliding scale dose subcut USEASDIRECTD Qty: 6 0RF Rx Instructions: 3 units for Blood sugar 151-200 5 units for blood sugar 201-250 8 units for blood sugar 251 -300 10 units for blood sugar 301-350 15 units for blood sugar above 400 Continued atorvastatin 40 mg tablet 40 mg PO DAILY lisinopril-hydrochlorothiazide 20-12.5 mg tablet 1 tablet PO DAILY levothyroxine 100 mcg tablet 100 mcg PO DAILY norethindrone acetate 5 mg tablet 5 mg PO DAILY metformin 500 mg tablet extended release 24 hr 500 mg PO DAILY Invokana 300 mg tablet 300 mg PO DAILY Changed insulin glargine [Lantus Solostar U-100 Insulin] 100 unit/mL (3 mL) insulin pen 22 unit SUBCUT HS 30 Days Qty: 15 0RF Date of admission: 10/04/24 21:51 Primary Care Provider: Jay,Thuy Alexander Admitting Provider: Merly Duckworth Attending physician on admission: Merly Duckworth Condition: Serious
[2024-10-07] MEDS: levoFLOXacin 750 MG TABLET PO (13:57)
--- NOTE | 2024-10-09 15:22 | PCCDE ---
DM educator courtesy call completed: Pt reports fasting glucose in mid 100's, post meal; when checked, <200. Has HCP appt next week. Is considering following up with RD she met with in past. Denies questions.
== END 2024-10-07 14:34 | disposition home or self-care (01) | DRG 720 ==
LOC: ANHED 19:30 → ANHICU 21:53 → ANHIMU 10-07 12:29 → ANHICU 10-08 16:42 → ANHIMU 10-08 16:42
PROVIDERS: Emergency Medicine; Internal Medicine; Admitting Provider Internal Medicine; Emergency Provider Student in an Organized Health Care Education/Training Program; PCP Family Medicine; Visit Provider Internal Medicine
DX: A41.51 Sepsis due to Escherichia coli [E. coli] (principal); E11.10 Type 2 diabetes mellitus with ketoacidosis without coma; I10 Essential (primary) hypertension; J96.01 Acute respiratory failure with hypoxia; D50.9 Iron deficiency anemia, unspecified; D75.839 Thrombocytosis, unspecified; D72.829 Elevated white blood cell count, unspecified; E11.42 Type 2 diabetes mellitus with diabetic polyneuropathy; E87.6 Hypokalemia; J02.9 Acute pharyngitis, unspecified; N92.0 Excessive and frequent menstruation with regular cycle; E87.4 Mixed disorder of acid-base balance; G47.30 Sleep apnea, unspecified; E03.9 Hypothyroidism, unspecified; N10 Acute pyelonephritis; Z90.49 Acquired absence of other specified parts of digestive tract; Z87.891 Personal history of nicotine dependence; Z79.4 Long term (current) use of insulin; E66.812 Obesity, class 2; Z68.41 Body mass index [BMI] 40.0-44.9, adult
CPT/HCPCS: 36415; 36430; 36569; 36600; 70490; 71045; 71250; 74177; 76775; 80048; 80053; 81001; 81025; 82010; 82274; 82607; 82728; 82746; 82803; 82805; 82948; 83036; 83540; 83550; 83605; 83615; 83690; 83735; 83880; 84100; 84145; 84439; 84443; 84480; 84484; 85014; 85018; 85025; 85027; 85055; 86140; 86850; 86900; 86901; 86923; 87040; 87086; 87186; 87641; 93005; 93306; 94002; 96361; 96365; 96366; 96368; 96375; 96376; 97162; 97165; 99285; A9270; C1751; J0692; J1171; J1741; J1756; J1815; J1938; J2003; J2270; J2405; J3370; J3475; J3480; J7030; J7040; J7050; P9016; Q9967

== ENCOUNTER 2025-01-26 11:18 | Outpatient (CLI) | payer BC, SELFPAY ==
--- NOTE | ~2025-01-26 | US_ITS ---
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 Technique: Cavazos-scale and color Doppler images were obtained. Findings: KIDNEYS: The renal cortices are intact with no stenosis or calculi. Right Kidney: Within the inferior pole right kidney there is a solid-appearing lesion measuring 2.3 x 2.3 x 3.2 cm. Right kidney 12.4 x 5.3 x 5.3 cm, mild hydronephrosis. Left Kidney: Left kidney 12.2 x 5.6 x 4.6 cm, mild hydronephrosis. Bladder: The bladder is unremarkable. . Impression: 1. Solid-appearing right renal lesion concerning for neoplasm which appears increased in size compared to the previous CT study accounting for differences in technique. Contrast-enhanced MRI is recommended Reviewed, dictated and finalized at location P. Impression: 1. Solid-appearing right renal lesion concerning for neoplasm which appears inc reased in size compared to the previous CT study accounting for differences in technique. Contrast-enhanced MRI is recommended
--- OUTSIDE RECORDS SUMMARY | 2025-01-26 12:38 | XMS_ITS | Patient Health Record ---
Author Organization Abhijeet Cardenas [facility] Address [address] [place] [address] Support Name Relationship Address Phone Harini Jordan Guarantor Unknown [phone] Allergies No Known Allergies Reason For Referral No Information Medications Medication SIG (Take, Route, Fr equency, Duration) Notes Start Date End Date Status dexAMETHasone 6 MG 1 tablet orally once a day; Duration: 7 days 05/25/2022 Active Social History Sex Assigned At : Social History Observation Description Sex Assigned At Female Plan Of Treatment Pending Test Test Name Order Date (IH) CareStart COVID-19 Antigen Test 12/2022 (IH) Influenza A-B Qualitative Test 12/2022 (IH) Strep A Dipstick Test 05/25/2022 Medications Administered Medication Instructions Date of Administration Dosage Notes dexAMETHasone (LA) 05/25/2022 1 mL Ketorolac Tromethamine 05/25/2022 2 mL Medical (General) History Medical History History ICD Code HTN (hypertension) with goal to be deter mined I10
--- OUTSIDE RECORDS SUMMARY | 2025-01-26 12:38 | XMS_ITS | Encounter Summary ---
Author Organization [facility] Address [address] [place] [id number] Care Team Providers Care Tool Design Draftsperson Name Role Phone Papi Forbes MD Primary Care Provider Unavailable Encounter Details Date Type Department Care Team (Late st Contact Info) Description 02/17/2017 Abstract [place] [address] Papi Forbes MD Social History Tobacco Use Types Packs/Day Years Used Date Smoking Tobacco: Never Assessed Comments Unknown Sex and Gender Information Value Date Recorded Sex Assigned at Not on file Legal Sex Female 5:53 PM CDT Gender Identity Not on file Sexual Orientation Not on file documented as of this encounter Plan of Treatment Not on file documented as of this encounter Visit Diagnoses Not on filedocumented in this encounter Care Teams Tool Design Draftsperson Relationship Specialty Start Date End Date Papi Forbes MD PCP - General 11/10/14 documented as of this encounter
--- OUTSIDE RECORDS SUMMARY | 2025-01-26 12:39 | XMS_ITS | Clinical Summary ---
Author Organization [facility] Address [address] [place] [address] Care Team Providers Care Color Developer Name Role Phone Shraddha Mckinnon PA-C Primary Care Provider Kirsten Caldwell PA-C Unavailable [phone] Source Comments [facility],non-owned Affiliates and Associated Physician Practices is amultiple site organization consisting of ambulatory clinics and hospital sitesin [place], [place], [place] and [place]. This disclosure is being madepursuant to the Care Everywhere program and may not contain all information available regarding this patient. Last updated 18.[facility] Allergies Active Allergy Reactions Criticality Noted Date Comments Morphine Nausea and/or Vomiting 11/01/2021 hallucenation Medications * Be aware that medications may not be up to date on this document. Alwaysverify current medications with the patient. atorvastatin (Lipitor) 40 MG tablet Take 1 (one) tablet by mouth 11/01/2021 Active Invokana 300 MG tablet TAKE ONE TABLET BY MOUTH EVERY DAY FOR DIABETES 07/14/2022 Active Unithroid 100 MCG tablet TAKE ONE TABLET BY MOUTH DAILY FOR THYROID 07/14/2022 Active Victoza 18 MG/3ML pen INJECT 1.8 MG UNDER THE SKIN DAILY FOR DIABETES 06/15/2022 Active lisinopril (Prinivil; Zestril) 20 MG tablet Take 1 (one) tablet by mouth once daily Active lisinopril-hydr oCHLOROthiazide (Prinzide; Zestoretic) 10-12.5 MG tablet Take 1 (one) tablet by mouth 11/01/2021 Active metFORMIN (Glucophage) 1000 MG tablet Take 1 (one) tablet by mouth 2 times daily with morning and evening meal Active Active Problems No known active problems Social History Tobacco Use Types Packs/Day Years Used Date Smoking Tobacco: Never Assessed Comments Unknown Sex and Gender Information Value Date Recorded Sex Assigned at Not on file Legal Sex Female 11:28 AM CHIEF JAILER Gender Identity Not on file Sexual Orientation Not on file Last Filed Vital Signs Vital Sign Reading Time Taken Comments Blood Pressure 102/66 08/08/2022 10:28 AM CDT Pulse 106 08/08/2022 10:28 AM CDT Temperature - - Respiratory Rate - - Oxygen Saturation 96% 08/08/2022 10:28 AM CDT Inhaled Oxygen Concentration - - Weight 86.6 kg (191 lb) 08/08/2022 10:28 AM CDT Height 144.8 cm (4' 9) 08/08/2022 10:28 AM CDT Body Mass Index 41.33 08/08/2022 10:28 AM CDT Plan of Treatment Health Maintenance Due Date Last Done Comments COLOGUARD (AGES 45-75) - COL ON CA SCREENING 1971 COLON MONITORING 1971 COLONOSCOPY - COLON CA SCREENING 1971 CT COLONOGRAPHY - COLON CA SCREENING 1971 Colorectal Cancer Screening 1971 FIT - COLON CA SCREENING 1971 FLEX SIG - COLON CA SCREENING 1971 MAMMOGRAM 1971 HIV SCREENING 06/20/1986 HEPATITIS C SCREENING 06/16/1989 DTAP/TDAP/TD VACCINES (1 - Tdap) 06/20/1990 HEPATITIS B VACCINE (1 of 3 - 19+ 3-dose series) 06/20/1990 PAP SMEAR 06/20/1992 PNEUMOCOCCAL VACCINE 50+ (1 of 1 - PCV) 06/20/2021 ZOSTER VACCINE (1 of 2) 06/20/2021 SCREENING FOR DIABETES 08/08/2022 DEPRESSION SCREENING 04/16/2024 COVID-19 VACCINE (1 - 2023-2 5 season) 2024 INFLUENZA VACCINE (#1) 2024 HIB VACCINE Aged Out No longer eligi ble based on patient's age to complete this topic HPV VACCINE Aged Out No longer eligi ble based on patient's age to complete this topic MENINGOCOCCAL (Group B) VACC INE SHARED DECISION-MAKING Aged Out No longer eligibl e based on patient's age to complete this topic MENINGOCOCCAL GROUPS A/C/Y/W VACCINE Aged Out No longer eligible b ased on patient's age to complete this topic Care Teams Color Developer Relationship Specialty Start Date End Date Shraddha Mckinnon PA-C [address] [place] [phone] PCP - General Physician Residential Air Sealing Technician 06/20/22 Kirsten Caldwell PA-C [address] [place] [phone] Market Researcher Physician Residential Air Sealing Technician 06/20/22
--- OUTSIDE RECORDS SUMMARY | 2025-01-26 12:39 | XMS_ITS | Clinical Summary ---
Author Organization [facility] Address [address] [place] [address] Care Team Providers Care Office Worker Name Role Phone Unavailable Primary Care Provider Unavailabl e Social History Tobacco Use Types Packs/Day Years Used Date Smoking Tobacco: Never Assessed Comments Unknown Sex and Gender Information Value Date Recorded Sex Assigned at Not on file Legal Sex Female 5:53 PM CDT Gender Identity Not on file Sexual Orientation Not on file Plan of Treatment Health Maintenance Due Date Last Done Comments Cervical Cancer Screening Pa p Smear (Age 30 to 64) Every 3 Years 1971 Colorectal Cancer Screening Colonoscopy (10 Years) 1971 Annual Physical 06/20/1974 Hepatitis C 06/20/1989 DTaP, Tdap and Td Vaccines ( 1 - Tdap) 06/20/1990 Hepatitis B Vaccines (1 of 3 - 19+ 3-dose series) 06/20/1990 Cervical Cancer Screening Pa p with HPV Testing (Age 30 to 64) Every 5 Years 06/20/2001 Cervical Cancer Screening with HPV 06/20/2001 Mammogram Screening 2011 Pneumococcal Vaccine: 50+ Ye ars (1 of 1 - PCV) 06/20/2021 Zoster Vaccines (1 of 2) 06/20/2021 COVID-19 Vaccine ( - 2023-2 5 season) 2024 Influenza Adult (#1) 2025 Meningococcal B Vaccine Aged Out No l onger eligible based on patient's age to complete this topic Meningococcal Vaccine Aged Out No laura henny eligible based on patient's age to complete this topic RSV Immunizations Under 20 Months Aged Out No longer eligible based on patient's age to complete this topic
--- OUTSIDE RECORDS SUMMARY | 2025-01-26 12:39 | XMS_ITS | Clinical Summary ---
Author Organization [facility] Address [address] [place] [address] Care Team Providers Care Pharmaceutical Laboratory Technician Name Role Phone Shraddha Mckinnon Primary Care Provider + Allergies Active Allergy Reactions Criticality Noted Date Comments Morphine Medications norethindrone (AYGESTIN) 5 mg tabletIndication s:Abnormal uterine bleeding (AUB) Take 1 tablet (5 mg total) by mouth daily 30 tablet 11 07/21/2024 6 Active Active Problems Problem Noted Date Diagnosed Date Abnormal uterine bleeding (AUB) 07/21/2024 Overview (11/28/2024): Referred in July 2024 for management of AUB over the past 2 years, with HMB and painful menses. Reports regular menses 04/28/24 US: UT 10.4x7.8x8.2cm, multiple intramural fibroids (R 3.6x3.5x4.5, anterior 1.2x1.1x1.1), 15mm EMS (pre-menopausal) Previously discussed typical causes of AUB, which is likely due to fibroids seen on most recent ultrasound growing larger over time, leading to heavier menses over the past 2 years, despite regular cycles. Discussed management options such as medical management with menstrual suppression with OCPs, injectables, and LARCs; surgical management with hysteroscopic resection of fibroids if intracavitary/intramural and accessible, endometrial ablation, UAE, myomectomy, and definitive management with hysterectomy. Discussed risks of injury during hysterectomy given prior CSx3. EMBx 07/2024: Uterus, endometrium, biopsy - Secretory endometrium - No evidence of hyperplasia or malignancy Myriad testing negative due to FHx of quality control systems manager cancers. Plan: Reviewed briefly the various management options for AUB-L. Will plan to increase to Aygestin 5 mg BID. Ultimately discussed that hormonal IUD may have better efficacy in controlling AUB. Thus pt will return for IUD placement visit. She is currently self pay but reports believes she will have insurance starting in December. Discussed if IUD is inadequate at controlling bleeding & she does not have insurance still, will recommend pt apply for financial assistance for hysteroscopy for cavity evaluation and further sampling. Family history of ovarian cancer 07/21/2024 Overview (07/21/2024): Patient reports family history of gynecologic malignancies: Sister with ovarian cancer (Age 45), Sister with breast cancer (50) Recommended germline cancer mutation testing given family history. Discussed cost of test (around $250) without insurance and possible future implications regarding insurance coverage (life insurance policies, etc.) based on test results. Patient desires testing, will draw today Arthralgia of shoulder 01/12/2012 Encounters Date Type Department Care Team Description 11/27/2024 3:30 PM CDT Office Visit [facility] [address] [facility] 3[address] [place] [address] Maeve Neumann MD Abnormal uterine bleeding (AUB) (Primary Dx) from Last 3 Months Surgical History Surgery Date Site/Laterality Comments SECTION CS via MLV x3 HYSTEROSCOPY 04/16/2017 - 04/15/2018 LAPAROSCOPIC CHOLECYSTECTOMY 04/16/1997 - 04/15/1998 ROTATOR CUFF REPAIR Medical History Medical History Date Comments ZAK (iron deficiency anemia) T2DM (type 2 diabetes mellitus) HTN (hypertension) HLD (hyperlipidemia) Hypothyroid Tobacco use Family History Medical History Relation Name Comments Ovarian cancer Sister 1 Breast cancer Sister 2 Relation Name Status Comments Sister 1 Sister 2 Alive Social History Tobacco Use Types Packs/Day Years Used Date Smoking Tobacco: Never Tobacco Cessation:Counseling Given: Not Answered Hunger Vital Sign Answer Date Recorded Within the past 12 months, y ou worried that your food would run out before you got the money to buy more. Never true 11/28/19 25 Within the past 12 months, t he food you bought just didn't last and you didn't have money to get more. 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 Gender Identity Not on file Sexual Orientation Not on file Obstetrics History Para Term AB IAB SAB Ectopic Multiple Livin g Live Births 3 3 2 1 3 3 Date Outcome GA Total Labor Labor/2nd/3rd Weight Sex Type Anes PTL Supriya A1 A5 Name Clin Term Term Last Filed Vital Signs Vital Sign Reading Time Taken Comments Blood Pressure 108/52 11/27/2024 3:11 PM CDT Pulse 94 11/27/2024 3:11 PM CDT Temperature 36.6 C (97.9 F) 01/14/2017 12:37 PM CDT Respiratory Rate 18 07/21/2024 8:12 AM CDT Oxygen Saturation 97% 11/27/2024 3:11 PM CDT Inhaled Oxygen Concentration - - Weight 81.5 kg (179 lb 9.6 oz) 11/27/2024 3:11 P M CDT Height 144.8 cm (4' 9) 11/27/2024 3:11 PM CDT Body Mass Index 38.87 11/27/2024 3:11 PM CDT Plan of Treatment Health Maintenance Due Date Last Done Comments Breast Cancer Screening-Mammogram 1971 Cervical Cancer Screening 1971 Colon Cancer Screening-Colonoscopy 1971 Depression Screening 1971 Hepatitis C Screening 1971 DTaP/Tdap/Td Vaccine (1 - Tdap) 06/20/1982 Hepatitis B Screening 06/20/1989 Regular Well Visit/Exam 18-64 06/20/1989 Zoster Vaccine (1 of 2) 06/20/2021 Covid-19 Vaccine (3 - season) 2024 07/26/2020, 07/05/2020 Influenza Vaccine (#1) 2024 , 03/15/2023, 01/28/2019, Additional history exists Pneumococcal vaccine <65 Aged Out 05/18/2022, 04/17 No longer eligible based on patient's age to complete this topic Procedures Procedure Name Priority Date/Time Associated Diagnosis Comments CBC WITHOUT DIFFERENTIAL Routine 11/27/2024 4:16 PM CDT Abnormal uterine bleeding (AUB) from Last 3 Months Results * (ABNORMAL) CBC without differential (11/27/2024 4:16 PM CDT) WBC 11.96(H) 3.80 - 9.90 K/cumm Hgb 12.0 11.9 - 15.5 g/dL [facility] Hct 40.3 35.6 - 45.5 % [facility] Plt 381 150 - 400 K/cumm [facility] MPV Not Measured 9.1 - 12.3 fL [facility] RBC 5.71(H) 3.90 - 5.20 M/cumm [facility] MCV 70.6(L) 81.3 - 96.4 fL [facility] MCH 21.0(L) 27.1 - 33.3 pg [facility] MCHC 29.8(L) 32.3 - 35.7 g/dL [facility] RDW CV 25.9(H) 11.1 - 14.9 % [facility] RDW SD 61.1(H) 35.7 - 48.1 fL [facility] NRBC abs 0.00 0.00 - 0.01 K/cumm [facility] Blood 11/27/2024 4:16 PM CDT 11/27/2024 4:42 PM CDT us Maeev Neumann MD LAB BLOOD ORDERABLES Final Result [facility] Department [place] [address] from Last 3 Months Care Teams Pharmaceutical Laboratory Technician Relationship Specialty Start Date End Date Shraddha Mckinnon PA PCP - General Physician Director Of Market Research 09/13/22
== END 2025-01-26 11:19 | disposition home or self-care (01) ==
PROVIDERS: PCP Family Medicine; Visit Provider Physician Assistant
DX: N10 Acute pyelonephritis (principal)
CPT/HCPCS: 76770

== ENCOUNTER 2025-03-02 14:27 | Outpatient (CLI) | payer BC, SELFPAY ==
--- NOTE | ~2025-03-02 | MR_ITS ---
EXAMINATION: MR abdomen wo/w con DATE: 03/02/2025 15:40 INDICATION: Renal mass TECHNIQUE: Magnetic resonance imaging (MRI) of the abdomen was performed without and with 15 mL Multihance intravenous contrast. Sequences included coronal T2- weighted SS-FSE, coronal and axial FS 2D-FIESTA, axial STIR FSE, axial T2- weighted SS-FSE, axial T2-weighted FS SS-FSE, axial diffusion-weighted SE, axial dual-echo T1-weighted FSPGR, and axial and coronal T1-weighted LAVA. Postcontrast axial T1-weighted LAVA images were obtained in a time course. Postcontrast coronal T1-weighted LAVA images were obtained. COMPARISON: None. FINDINGS: Heart size is normal. No pericardial or pleural effusion. Cholecystectomy clips the gallbladder fossa. Liver, spleen, pancreas and bilateral adrenal glands are normal. 8 mm T2 hyperintense nonenhancing cyst with subtle thin internal septation at the upper pole the right kidney. This corresponds in location to the region of concern on the prior CT. On the prior CT there appears to be small region of parenchymal hypoenhancement surrounding a couple small cystic lesions measuring 1.3 cm and 8 mm with appearance most suspicious for pyelonephritis and possible small internal renal abscesses.. There is also a 1.6 cm T2 hypointense, T1 hyperintense nonenhancing proteinaceous/hemorrhagic cyst at the upper pole the right kidney. 1.7 cm T1 hyperintense fat saturating macroscopic fat containing angiomyolipoma at the lower pole of the left kidney. No abnormally enhancing solid renal lesions identified. Visualized portions of bowels including the appendix are normal. Visualized portions of bowels are unremar kable. Partially visualized fibroid uterus. Normal bone marrow signal throughout. IMPRESSION: 1. 8 mm likely septated cyst/persistent at the upper pole the right kidney at the site of the previously hypoenhancing region of concern which was likely related to pyelonephritis. 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 No abnormally enhancing renal lesions to suggest neoplasm. 2. Fibroid uterus. Reviewed, dictated and finalized at location A. ULATOR COMPOUNDER IMPRESSION: 1. 8 mm likely septated cyst/persistent at the upper pole the right kidney at t he site of the previously hypoenhancing region of concern which was likely rela misbah to pyelonephritis. 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 No a bnormally enhancing renal lesions to suggest neoplasm. 2. Fibroid uterus.
--- OUTSIDE RECORDS SUMMARY | 2025-03-03 00:03 | XMS_ITS | Clinical Summary ---
Author Organization [facility] Address [address] [place] [address] Care Team Providers Care Sewer Builder Name Role Phone Shraddha Mckinnon Primary Care [...] Myriad testing negative due to FHx of casing tier cancers. 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
== END 2025-03-02 14:28 | disposition home or self-care (01) ==
PROVIDERS: PCP Family Medicine; Visit Provider Physician Assistant
DX: N28.89 Other specified disorders of kidney and ureter (principal); N28.1 Cyst of kidney, acquired; D17.71 Benign lipomatous neoplasm of kidney; D25.9 Leiomyoma of uterus, unspecified
CPT/HCPCS: 74183; A9577